=== PATIENT | male | born 1950 | race Caucasian/White ===

== ENCOUNTER 2018-11-19 18:24 | Inpatient (IN) | payer OTHER, MEDICARE ==
[~2018-11-19] VITALS: Ht 180.3 cm; Wt 121.0 kg
[2018-11-19 19:06] LABS: BASOPHILS ABSOLUTE AUTO 0.05 K/mm3 (0.00-0.23); BASOPHILS PERCENT AUTO 0 % (0-2); EOSINOPHILS PERCENT AUTO 0 % (0-6); Hematocrit 40.4 % (37.0-53.0); IMMATURE GRAN PERCENT AUTO 1 % (0-1); LYMPHOCYTES ABSOLUTE AUTO 0.59 K/mm3 (0.84-5.20); LYMPHOCYTES PERCENT AUTO 4 % (21-46); MONOCYTES ABSOLUTE AUTO 0.75 K/mm3 (0.16-1.47); MONOCYTES PERCENT AUTO 5 % (4-13); Mean Corpuscular HGB 26.5 pg (26.0-34.0); Mean Corpuscular HGB Conc 32.2 g/dL (31.5-36.5); Mean Corpuscular Volume 82 fL (80-100); Mean Platelet Volume 9.4 fL (9.1-12.4); NEUTROPHILS PERCENT AUTO 91 % (41-73); Platelet Count 255 K/mm3 (150-400); RDW Coefficient Variation 15.9 % (11.7-14.2); RDW Standard Deviation 47.7 fL (35.1-46.3); White Blood Cell Count 16.29 K/mm3 (4.00-11.30)
[2018-11-19 19:10] LABS: Source, Urine Catheter
[2018-11-19] MEDS ORDERED: TRAZ50 PO (19:12)
[2018-11-19] MEDS ORDERED: CLOP75 PO (19:12)
[2018-11-19] MEDS ORDERED: TAMS.4ER PO (19:14)
[2018-11-19] MEDS ORDERED: Crestor20 MG PO (19:14)
[2018-11-19] MEDS ORDERED: CARV3.125 PO (19:15)
[2018-11-19] MEDS ORDERED: METF500 PO (19:15)
[2018-11-19] MEDS ORDERED: OMEPRAZOLE20 MG PO (19:15)
[2018-11-19] MEDS ORDERED: FISH OIL 1,0001 EAC1 PO (19:15)
[2018-11-19 19:20] LABS: Bilirubin, Urine Neg (Neg); Blood, Urine 5+ (Neg); Glucose Qualitative, Urine Neg (Neg); Ketones, Urine 2+ (Neg); Leukocyte Esterase, Urine 3+ (Neg); Nitrite, Urine Pos (Neg); Protein, Urine 3+ (Neg); Specific Gravity, Urine 1.015 (1.003-1.022); Urobilinogen, Urine NORM (Normal)
[2018-11-19 19:22] LABS: Alanine Aminotransfer (ALT/SGP 40 U/L (12-78); Albumin, Blood 2.8 g/dL (3.4-5.0); Albumin/Globulin Ratio 0.6 (0.8-1.8); Alk Phos 71 U/L (50-136); Anion Gap 6 mmol/L (6-16); Aspartate Aminotrans (AST/SGOT 93 U/L (12-37); Bilirubin, Total 0.5 mg/dL (0.1-1.0); Blood Urea Nitrogen 24 mg/dL (8-24); Bun/Creatinine Ratio 19.8 (12.0-20.0); CO2, Blood 23 mmol/L (21-32); Calcium, Blood 8.7 mg/dL (8.5-10.1); Chloride, Blood 109 mmol/L (98-108); Creatinine, Blood 1.21 mg/dL (0.60-1.20); Globulin, Blood 4.5 g/dL (2.2-4.0); Glomerular Filtration Rate >60 (60-); Glucose, Blood 160 mg/dL (70-99); Potassium, Blood 4.5 mmol/L (3.5-5.5); Sodium, Blood 138 mmol/L (136-145); Total Protein, Blood 7.3 g/dL (6.4-8.2)
[2018-11-19 19:39] LABS: Appearance, Urine Hazy (Clear); Color, Urine Yellow (P-Yellow)
[2018-11-19 19:41] LABS: White Blood Cells, Urine 25-50 /hpf (0-5)
[2018-11-19 19:42] LABS: Bacteria Many /hpf; Squamous Epithelial Cells Few /hpf (Few)
[2018-11-19] MEDS ORDERED: ASCO500 PO (20:48)
[2018-11-19] MEDS ORDERED: Aspir 8181 MG PO (20:48)
[2018-11-19] MEDS ORDERED: OYSTER SHELL 21 EAC1 PO (20:49)
[2018-11-19] MEDS ORDERED: TRULICITY1.5 MG/0.5 PO (20:50)
[2018-11-19] MEDS ORDERED: Flonase 0.05% N16 GM (20:50)
[2018-11-19] MEDS ORDERED: Glucose4 GM PO (20:51)
[2018-11-19] MEDS ORDERED: GABA100 PO (20:51)
[2018-11-19] MEDS ORDERED: Isopto Tears15 ML BOTHEYES (20:52)
[2018-11-19] MEDS ORDERED: Alaway10 ML BOTHEYES (20:53)
[2018-11-19] MEDS ORDERED: BASAGLAR K100 UNIT/1 SC (20:53)
[2018-11-19] MEDS ORDERED: Vitamin D2000 UNIT PO (20:54)
[2018-11-19] MEDS ORDERED: Prinivil10 MG PO (20:54)
[2018-11-19] MEDS ORDERED: VENLAFAXINE HC150 MG PO (20:55)
[2018-11-19] MEDS ORDERED: Aqua Care237 ML TOP (20:56)
[2018-11-20 04:52] LABS: Mean Corpuscular HGB 26.4 pg (26.0-34.0); Mean Corpuscular HGB Conc 31.6 g/dL (31.5-36.5); Mean Corpuscular Volume 84 fL (80-100); Mean Platelet Volume 8.9 fL (9.1-12.4); Platelet Count 208 K/mm3 (150-400); RDW Standard Deviation 49.6 fL (35.1-46.3); Red Blood Cell Count 4.54 M/mm3 (4.30-5.90); White Blood Cell Count 10.32 K/mm3 (4.00-11.30)
[2018-11-20 05:10] LABS: Albumin, Blood 2.5 g/dL (3.4-5.0); Albumin/Globulin Ratio 0.6 (0.8-1.8); Bilirubin, Total 0.4 mg/dL (0.1-1.0); Creatinine, Blood 1.33 mg/dL (0.60-1.20); Globulin, Blood 4.1 g/dL (2.2-4.0); Potassium, Blood 3.5 mmol/L (3.5-5.5); Total Protein, Blood 6.6 g/dL (6.4-8.2)
--- NOTE | 2018-11-20 06:38 | NUR ---
NEW PT ADMITTED THIS SHIFT FOR SEPSIS POSSIBLE UTI POST PT SELF CATHING, HE VOICED HX OF DOING SO FOR 10 YEARS. REPORTED AMS POST PT HUNTING TRIP WHEN HE WAS DIFFICULT TO WAKE UP AFTER HE CAME HOME TO SLEEP. UA DONE - SEE RESULTS. ANTIBIOTICS ADMINISTERED IN THE ED, ELEVATED TEMP - TYLENOL ADMIN X 2, SEE MAR FOR DETAILS. TEMP NORMALIZED, MENTAL STATUS IMPROVED/ CURRENTLY TEMP 99.7 ORAL.
--- NOTE | 2018-11-20 10:01 | NUR ---
ATTEMPTING TO RECONCILE MEDS I HAVE CALLED OUR PHARMACY AND THEY HAVE KINDLY AGREED TO FAX [facility] FOR MED LIST. HOWEVER, [facility]IL THURSDAY. I HAVE SPOKEN WITH THE PT'S AND REQUESTED SHE BRING MEDICATIONS AND/OR ANY POSSIBLE MED LIST IN.
[2018-11-20] MEDS ORDERED: AMLO10 PO (16:00)
[2018-11-20] MEDS ORDERED: ZYRTEC10 M2 PO (16:01)
[2018-11-20] MEDS ORDERED: Fish Oil Conc1000 MG PO (16:02)
[2018-11-20] MEDS ORDERED: MECL12.5 PO (16:03)
--- NOTE | 2018-11-20 16:20 | NUR ---
SHIFT SUMMARY BLADDER SCANS ARE Q 6 HRS DUE TO RETENTION. PT STRAIGHT CATHS HIMSELF AT HOME. HE IS VERY SLOW TO RESPOND. I HAVE ASKED HIS IF THIS IS HIS BASELINE, SHE STATED HE HAS ALWAYS DONE THIS, BUT THIS IS THE WORST IT HAS EVER BEEN. HE DID NEED STRAIGHT CATH'D TODAY (BLADDER SCAN 575 CC'S), 500 CC'S REMOVED. HE DID WORK WITH PHYSICAL THERAPY AND HE DID WALK IN THE HALLWAY A SHORT DISTANCE WITH A FWW. HE SLEPT IN THE BED THE REST OF THE DAY AND REMAINED SLOW TO RESPOND. TODAY LAB REPORTED TO ME THAT HE HAD A POSITIVE BLOOD CULTURE FOR GRAM NEGATIVE BACTERIA, THIS WAS REPORTED TO THE HOSPITALIST AND MY CHARGE. HIS BROUGHT HIS MED LIST TO ME TODAY, AND I RECONCILED HIS HOME MEDICATIONS. THIS MORNING HE WAS UNABLE TO FOLLOW MY DIRECTIONS AND HE CHEWED HIS MEDICATIONS. I REPORTED THIS TO THE HOSPITALIST. HE HAS EXPERIENCED ONLY SLIGHTLY ELEVATED TEMPS THIS SHIFT.
--- NOTE | 2018-11-20 17:14 | NUR ---
PT STATUS PT STATES HE HAS BEEN EXPERIENCING SHARP PAINS ON THE RIGHT SIDE OF HIS HEAD, "FEELS LIKE IT'S BEHIND MY EYE".
--- NOTE | 2018-11-20 19:59 | NUR ---
BLADDER SCAN AT TIS TIME 38 CC. NO STRAIGHT CATH AT THIS TIME.
--- NOTE | 2018-11-21 02:04 | NUR ---
PT ATTEMPTED TO GET OUT OF BED TO 'GO TO THE BATHROOM', ASSISTED TO BEDSIDE COMMODE BUT PT DID NOT VOID. ASSISTED BACK TO BED, BLADDER SCAN 802, STRAIGHT CATHED - 700 CC. PT RESTING QUIETLY AT THIS TIME.
--- NOTE | 2018-11-21 04:11 | NUR ---
inTERMITTENT FEVERS WITH APPARENT DISORIENTATION NOTED. RECEIVED TYLENOL AND ICE BAGS TO BILAT AXILLA - A/O X 4 AFTERWARDS. BLADDER SCANS ABOUT EVERY 6 HRS, FIRST WAS 38 CC, NO CATH NEEDED, THE SECOND THIS SHIFT - 802 CC, STRAIGHT CATHED 700 CC OUT. cURRENTLY RESTING QUIETLY. WILL MONITOR.
[2018-11-21 05:08] LABS: BASOPHILS ABSOLUTE AUTO 0.02 K/mm3 (0.00-0.23); BASOPHILS PERCENT AUTO 0 % (0-2); EOSINOPHILS ABSOLUTE AUTO 0.03 K/mm3 (0.00-0.68); EOSINOPHILS PERCENT AUTO 0 % (0-6); Hemoglobin 13.2 g/dL (13.5-17.5); IMMATURE GRAN ABSOLUTE AUTO 0.05 K/mm3 (0.00-0.10); IMMATURE GRAN PERCENT AUTO 0 % (0-1); LYMPHOCYTES PERCENT AUTO 14 % (21-46); MONOCYTES ABSOLUTE AUTO 0.93 K/mm3 (0.16-1.47); MONOCYTES PERCENT AUTO 8 % (4-13); Mean Corpuscular HGB 26.5 pg (26.0-34.0); Mean Corpuscular HGB Conc 31.4 g/dL (31.5-36.5); Mean Corpuscular Volume 84 fL (80-100); Mean Platelet Volume 9.4 fL (9.1-12.4); NEUTROPHILS PERCENT AUTO 77 % (41-73); Platelet Count 214 K/mm3 (150-400); RDW Standard Deviation 49.2 fL (35.1-46.3); Red Blood Cell Count 4.99 M/mm3 (4.30-5.90); White Blood Cell Count 11.63 K/mm3 (4.00-11.30)
[2018-11-21 05:22] LABS: Anion Gap 6 mmol/L (6-16); Blood Urea Nitrogen 23 mg/dL (8-24); Bun/Creatinine Ratio 18.9 (12.0-20.0); CO2, Blood 24 mmol/L (21-32); Calcium, Blood 8.2 mg/dL (8.5-10.1); Chloride, Blood 105 mmol/L (98-108); Creatinine, Blood 1.22 mg/dL (0.60-1.20); Glomerular Filtration Rate >60 (60-); Glucose, Blood 130 mg/dL (70-99); Potassium, Blood 3.9 mmol/L (3.5-5.5); Sodium, Blood 135 mmol/L (136-145)
--- NOTE | 2018-11-21 16:06 | NUR ---
PT STATUS IT IS LIKELY THAT THE BLADDER SCAN PERFORMED @ 1337 HRS DENOTING 887 CC'S IN THE BLADDER WAS IN ERROR. I WITHDREW (STRAIGHT CATH) 500 ML AFTER THAT, DID ANOTHER BLADDER SCAN REVEALING ONLY 9 CC'S IN THE BLADDER LEFT - VERIFIED WITH NURSE ALYSON
--- NOTE | 2018-11-21 16:18 | NUR ---
SHIFT SUMMARY BLADDER SCANNED AT BEGINNING OF SHIFT AND AGAIN JUST BEFORE 2:30. REQUIRED STRAIGHT CATH FOLLOWING BOTH. GAVE TYLENOL FOR HEADACHE, BRINGING MODERATE RELIEF. PT SEEMS MORE ALERT TODAY IN MY OPINION. HE HAS NOT REQUIRED INSULIN COVERAGE THIS SHIFT. PHYSICAL THERAPY HAD HIM UP AND WALKING IN THE CRAWFORD. I PROVIDED THE PT WITH EDUCATION ON HOW TO SAFELY SELF CATH TO MINIMIZE INFECTION RISK IN THE FUTURE.
--- NOTE | 2018-11-21 22:19 | NUR ---
BLADDER SCAN 61 POST VOID RESIDUAL. NO CATH AT THIS TIME DUE TO LESS THAN 400 CC
--- NOTE | 2018-11-22 00:58 | NUR ---
MORE ATTENTIVE TO QUESTIONS POSED AND COHERENT ANSWERS. NOW MAKING ATTEMPTS TO GET OUT OF BED TO VOID, REDIRECTIONS AND BED ALARM IN USE TO PREVENT FALLS. VOIDING IN URINAL QS. BLADDER SCANS POST RESIDUAL 61 CC LAST SCAN, WILL RESCAN LATER IN THIS SHIFT FOR LAST BLADDER SCAN. SEE DOCUMENTAION FOR DETAILS. NOTE SOME SLIGHT EXP WHEEZES, VOICED MD WAS AWARE AND SAID THAT THE MD SAID THE ANTIBIOTICS HE WAS TAKING WHOULD HELP. O2 SATS LOW TO MID 90'S. CPAP AT NIGHT.
--- NOTE | 2018-11-22 16:13 | NUR ---
PT IS A/OX3, PLEASANT AND COOPERATIVE, THE PT IS UP WITH MINIMAL ASSIST TO THE BATHROOM, THE PT WAS UP FOR A SHOWER TODAY, THE PT AMBULATED IN THE CRAWFORD WITH THE PHYSICAL THERAPIST, THE PT ANSWERED QUESTIONS APPROPRIATLY, THE PT APPEARS TO BE BREATHING EASILY ON RA, THE PT WAS MEDICATED FOR NECK PAIN X1 TODAY, FAMILY AT THE BEDSIDE, CALL LIGHT IN REACH, WILL CONTINUE TO MONITOR AND ASSESS FOR CHANGES
--- NOTE | 2018-11-22 21:45 | NUR ---
11/22/18 2100 PT VOIDED 480 ML. BLADDER SCAN = 990 ML. RN WILL NOTIFY ON-CALL HOSPITALIST.
--- NOTE | 2018-11-22 23:55 | NUR ---
11/22/18 [address] 1780 ml of clear yellow urine. ABDOMEN SOFT. CPAP ON AND PT FELL BACK TO SLEEP.
--- NOTE | 2018-11-23 06:26 | NUR ---
11/23/18 0500 SPEECH LANG PATH ENCOURAGED PT TO VOID BUT STATES HE HAS NO URGE RIGHT NOW. BLADDER SCN = 755 ML RIGHT NOW. NO C/O DISCOMFORT. PT WANTING TO SLEEP. ALLOWED TO GO BACK TO SLEEP. VITALS STABLE.
[2018-11-23 07:38] LABS: Hematocrit 37.7 % (37.0-53.0); Hemoglobin 12.1 g/dL (13.5-17.5); Mean Corpuscular HGB 26.4 pg (26.0-34.0); Mean Corpuscular HGB Conc 32.1 g/dL (31.5-36.5); Mean Corpuscular Volume 82 fL (80-100); Mean Platelet Volume 9.2 fL (9.1-12.4); Platelet Count 234 K/mm3 (150-400); RDW Coefficient Variation 15.9 % (11.7-14.2); RDW Standard Deviation 47.6 fL (35.1-46.3); Red Blood Cell Count 4.59 M/mm3 (4.30-5.90); White Blood Cell Count 7.66 K/mm3 (4.00-11.30)
[2018-11-23 07:54] LABS: Anion Gap 5 mmol/L (6-16); Blood Urea Nitrogen 22 mg/dL (8-24); Bun/Creatinine Ratio 19.5 (12.0-20.0); CO2, Blood 28 mmol/L (21-32); Calcium, Blood 8.4 mg/dL (8.5-10.1); Chloride, Blood 107 mmol/L (98-108); Creatinine, Blood 1.13 mg/dL (0.60-1.20); Glomerular Filtration Rate >60 (60-); Glucose, Blood 82 mg/dL (70-99); Potassium, Blood 3.5 mmol/L (3.5-5.5); Sodium, Blood 140 mmol/L (136-145)
[2018-11-23 08:11] LABS: BAND PERCENT MAN 1 % (0-8); BASOPHILS ABSOLUTE MAN 0.07 K/mm3 (0.00-0.23); BASOPHILS PERCENT MAN 1 % (0-2); EOSINOPHILS PERCENT MAN 4 % (0-6); LYMPHOCYTES ABSOLUTE MAN 2.37 K/mm3 (0.84-5.20); LYMPHOCYTES PERCENT MAN 31 % (21-46); MONOCYTES ABSOLUTE MAN 1.14 K/mm3 (0.16-1.47); MONOCYTES PERCENT MAN 15 % (4-13); NEUTROPHILS ABSOLUTE MAN 3.75 K/mm3 (1.96-9.15); SEG NEUTROPHILS PERCENT MAN 48 % (41-73); TOTAL CELLS COUNTED 100
[2018-11-23] MEDS ORDERED: ACET325 PO (11:52)
[2018-11-23] MEDS ORDERED: Flonase 0.05% N16 GM (12:03)
[2018-11-23] MEDS ORDERED: [UNRECOGNIZED DRUG - CODE] TOP (12:09)
[2018-11-23] MEDS ORDERED: Florastor250 MG PO (12:10)
[2018-11-23] MEDS ORDERED: LEVO750 PO (12:11)
--- NOTE | 2018-11-23 12:48 | NUR ---
Patient is sitting on a chair and alert. 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 Patient admits to struggling with depression and PTSD. We discuss the thought pattern he goes through and what has helped him manage through the years. Patient discribes how he hits it with every weapon he has from therapy to prayer. Patient states that Luisa and his shauna remain strong. I provide empathic listening, pastoral halfway house counselor, companionship and prayer. Patient responds well and voices appreciation for the visit.
--- NOTE | 2018-11-23 14:53 | NUR ---
PT DISCHARGED THE PT VERBALIZED UNDERSTANDING OF THE DC INSTRUCTIONS, THE PTS PRES[facility], AN APPOINTMENT WAS MADE FOR FOLLOW UP, THE PT WAS TRANSFERD VIA WHEELCHAIR ACCOMPANIED BY PATIENT SERVICES TECHNICIAN AND FAMILY, THE PT APPEARED TO BE BREATHING EASILY ON RA, THE PT SELF CATHED BEFORE LEAVING THE HOSPITAL, THE PT WAS A/OX3, [facility] TO [facility]
== END 2018-11-23 12:43 | disposition home health service (06) | DRG 872 ==
LOC: ER 18:24 → MEDS 18:25 → ENPENDDIS 11-23 11:09 → MEDS 11-23 12:43
PROVIDERS: Emergency Medicine; Internal Medicine; ADMIT Internal Medicine
DX: A41.53 Sepsis due to Serratia (principal); N39.0 Urinary tract infection, site not specified; N17.9 Acute kidney failure, unspecified; G93.40 Encephalopathy, unspecified; E11.22 Type 2 diabetes mellitus with diabetic chronic kidney disease; I12.9 Hypertensive chronic kidney disease with stage 1 through stage 4 chronic kidney disease, or unspecified chronic kidney disease; N18.3 Chronic kidney disease, stage 3 (moderate); N40.1 Benign prostatic hyperplasia with lower urinary tract symptoms; R33.8 Other retention of urine; E78.5 Hyperlipidemia, unspecified; E66.9 Obesity, unspecified; Z68.37 Body mass index [BMI] 37.0-37.9, adult; E11.40 Type 2 diabetes mellitus with diabetic neuropathy, unspecified
CPT/HCPCS: 36415; 51701; 71046; 80048; 80053; 81001; 82947; 83605; 83735; 85025; 85027; 87040; 87077; 87086; 87186; 93005; 93010; 94660; 94762; 96361-59; 96365-59; 96372; 96375-59; 97110; 97112; 97116; 97162; 97166; 97530; 97535; 99285-25; A9270; G0378; J0696; J1650; J1956; J2543; J7030

== ENCOUNTER 2020-03-12 23:25 | Inpatient (IN) | payer OTHER, MEDICARE ==
[~2020-03-12] VITALS: Ht 175.3 cm; Wt 110.6 kg
[~2020-03-12 23:25] MED LIST: ACET325 PO; AMLO10 PO; ASCO500 PO; Alaway10 ML BOTHEYES; Aqua Care237 ML TOP; Aspir 8181 MG PO; BASAGLAR K100 UNIT/1 SC; CARV3.125 PO; CLOP75 PO; Crestor20 MG PO; FISH OIL 1,0001 EAC1 PO; Fish Oil Conc1000 MG PO; Flonase 0.05% N16 GM; Florastor250 MG PO; GABA100 PO; Glucose4 GM PO; Isopto Tears15 ML BOTHEYES; LEVO750 PO; MECL12.5 PO; METF500 PO; OMEPRAZOLE20 MG PO; OYSTER SHELL 21 EAC1 PO; Prinivil10 MG PO; TAMS.4ER PO; TRAZ50 PO; TRULICITY1.5 MG/0.5 PO; VENL75ER PO; Vitamin D2000 UNIT PO; ZYRTEC10 M2 PO; [UNRECOGNIZED DRUG - CODE] TOP
[2020-03-13 00:12] LABS: BASOPHILS ABSOLUTE AUTO 0.02 K/mm3 (0.00-0.23); BASOPHILS PERCENT AUTO 0 % (0-2); EOSINOPHILS ABSOLUTE AUTO 0.01 K/mm3 (0.00-0.68); EOSINOPHILS PERCENT AUTO 0 % (0-6); Hematocrit 47.3 % (37.0-53.0); Hemoglobin 15.1 g/dL (13.5-17.5); IMMATURE GRAN ABSOLUTE AUTO 0.02 K/mm3 (0.00-0.10); IMMATURE GRAN PERCENT AUTO 0 % (0-1); LYMPHOCYTES ABSOLUTE AUTO 1.45 K/mm3 (0.84-5.20); LYMPHOCYTES PERCENT AUTO 20 % (21-46); MONOCYTES ABSOLUTE AUTO 0.75 K/mm3 (0.16-1.47); MONOCYTES PERCENT AUTO 10 % (4-13); Mean Corpuscular HGB 27.1 pg (26.0-34.0); Mean Corpuscular HGB Conc 31.9 g/dL (31.5-36.5); Mean Corpuscular Volume 85 fL (80-100); Mean Platelet Volume 9.3 fL (9.1-12.4); NEUTROPHILS ABSOLUTE AUTO 5.12 K/mm3 (1.96-9.15); NEUTROPHILS PERCENT AUTO 69 % (41-73); Platelet Count 245 K/mm3 (150-400); RDW Coefficient Variation 14.7 % (11.7-14.2); RDW Standard Deviation 46.1 fL (35.1-46.3); Red Blood Cell Count 5.57 M/mm3 (4.30-5.90); White Blood Cell Count 7.37 K/mm3 (4.00-11.30)
[2020-03-13 00:30] LABS: Alanine Aminotransfer (ALT/SGP 58 U/L (12-78); Albumin/Globulin Ratio 0.6 (0.8-1.8); Alk Phos 93 U/L (50-136); Anion Gap 10 mmol/L (6-16); Aspartate Aminotrans (AST/SGOT 47 U/L (12-37); Bilirubin, Total 0.5 mg/dL (0.1-1.0); Blood Urea Nitrogen 24 mg/dL (8-24); Bun/Creatinine Ratio 20.5 (12.0-20.0); CO2, Blood 22 mmol/L (21-32); Calcium, Blood 8.6 mg/dL (8.5-10.1); Chloride, Blood 102 mmol/L (98-108); Creatinine, Blood 1.17 mg/dL (0.60-1.20); Ethanol (Alcohol), Blood, Med <3 mg/dL; Glomerular Filtration Rate >60 (60-); Glucose, Blood 186 mg/dL (70-99); Potassium, Blood 4.3 mmol/L (3.5-5.5); Sodium, Blood 134 mmol/L (136-145)
[2020-03-13 00:54] LABS: Influenza A, PCR Negative (NEGATIVE); Influenza B, PCR Negative (NEGATIVE); Resp Syncytial Virus, PCR Negative (NEGATIVE); SARS-Cov-2 (COVID-19) PCR, MMC Positive (NEGATIVE)
[2020-03-13 02:15] LABS: Source, Urine Clean Catch
[2020-03-13 02:19] LABS: Appearance, Urine Clear (Clear); Bilirubin, Urine Neg (Neg); Blood, Urine 3+ (Neg); Color, Urine Amber (P-Yellow); Glucose Qualitative, Urine Neg (Neg); Ketones, Urine 1+ (Neg); Leukocyte Esterase, Urine 1+ (Neg); Nitrite, Urine Neg (Neg); Protein, Urine 4+ (Neg); Urobilinogen, Urine NORM (Normal)
[2020-03-13 02:24] LABS: Amorphous Light (0-Heavy); Bacteria Few /hpf; Hyaline Casts 0-2 /lpf (0-2); Red Blood Cells, Urine 0-2 /hpf (0-2); Squamous Epithelial Cells Not Seen /hpf (Few)
[2020-03-13 02:30] LABS: U Amphetamine Screen Not Detected; U Barbituate Screen Not Detected; U Benzodiazapine Screen Not Detected; U Buprenorphine Screen Not Detected; U Cannabinoids Screen Not Detected; U Cocaine Screen Not Detected; U Methadone Screen Not Detected; U Methamphetamine Screen Not Detected; U Opiates Screen Not Detected; U Oxycodone Screen Not Detected; U Phencyclidine Screen Not Detected; U Propoxyphene Screen Not Detected
[2020-03-13 05:52] LABS: Anion Gap 10 mmol/L (6-16); Blood Urea Nitrogen 24 mg/dL (8-24); Bun/Creatinine Ratio 21.1 (12.0-20.0); CO2, Blood 23 mmol/L (21-32); Calcium, Blood 8.4 mg/dL (8.5-10.1); Chloride, Blood 103 mmol/L (98-108); Creatinine, Blood 1.14 mg/dL (0.60-1.20); Glomerular Filtration Rate >60 (60-); Glucose, Blood 222 mg/dL (70-99); Potassium, Blood 4.3 mmol/L (3.5-5.5); Sodium, Blood 136 mmol/L (136-145)
--- NOTE | 2020-03-13 06:09 | NUR ---
OPERATING SYSTEMS SPECIALIST SUMMARY NEW ADMIT FROM THE ED TONIGHT. PT ADMITTED FOR INCREASED SOB AND WEAKNESS. PT DIAGNOSED W/ COVID 19 ON 03/01. PT ARRIVES TO FLOOR ON 2L O2 VIA NC BUT SATTING AT 98% SO TITRATED DOWN TO 1L. LUNG SOUNDS COARSE IN BASES, PT HAS DRY COUGH. PT AAOX4 AND PLEASANT, SOME INTERMITTENT FORGETFULNESS. PT TO START ON REMDESIVIR THIS AM. PT REPORTS LIVING AT HOME WITH WHO HAS HAD TROUBLE TAKING CARE OF HIM SINCE HE WAS DIAGNOSED WITH COVID. PT STATES HE HAS BEEN VERY WEAK AND HAS HAD SEVERAL FALLS IN THE LAST MONTH. PT EDUCATED ON CALLING FOR ASSISTANCE BEFORE GETTING UP ALONE BUT BED ALARM IS ON FOR SAFETY. VSS, WILL CONTINUE TO MONITOR.
--- NOTE | 2020-03-13 17:25 | NUR ---
SHIFT SUMMARY PT AxOx4. PLEASANT AND COOPERATIVE WITH CARE. PT DAUGHTER AND UPDATED TODAY. PT DC'D HIS OWN O2 THIS AM BECAUSE IT WAS BOTHERING HIS NOSE. HAS BEEN BREATHING ON RA WITHOUT DIFFICULTY T/O THE DAY. PT REPORTS FEELING MUCH BETTER TODAY COMPARED TO YESTERDAY. REPORTS INCREASED APPETITE AND STRENGTH. PT AND OT ORDERED TODAY. PT IS 1 PERSON ASSIST WITH FWW AND GB. FIRST DOSE OF REMDESIVIR STARTED TODAY. PER PT, HE SELF STRAIGHT CATHS TID x30 YEARS FOR RETENTION. PER DR WESTFALL, ORDERS FOR STRAIGHT CATH TID OR PRN OKAY. PT SELF STRAIGHT CATH'D x2 TODAY. PT REQUESTED COUGH MEDS THIS AM, BUT DID NOT END UP WANTING ANY TODAY. VITALS REVIEWED. CURRENTLY RESTING IN BED WITH CALL LIGHT IN REACH.
--- NOTE | 2020-03-14 06:03 | NUR ---
SHIFT SUMMARY AOX3-FORGETFUL @TIMES, STATES THAT IS NORMAL FOR HIM. FOLLOWS DIRECTIONS & ANSWERS QUESTIONS APPROPRIATE. VSS. SPO2 >90% ON RA. E/U RESPIRATIONS. DENIES DYSPNEA @REST, STATES HE FEELS SOB OCCASIONALLY c ACTIVITY OR TALKING. LUNGS SOUND DIM T/O. HAS OCCASIONAL NON PRODUCTIVE PAINFUL COUGH, ASKED FOR COUGH MEDICATION THIS AM. DENIES N/V. PT STRAIGHT CATH'D HIMSELF c MIN ASSISTANCE & HAD 500ML URINE OUTPUT. CBG @HS WAS 307, PROVIDED INSULIN COVERAGE. CALL LIGHT IN REACH & PT ABLE TO MAKE NEEDS KNOWN, WILL MONITOR UNTIL DAY SHIFT NURSE ASSUMES CARE.
[2020-03-14] MEDS ORDERED: CALCIUM 250-D1 EACH PO (15:12)
[2020-03-14] MEDS ORDERED: TRULICITY1.5 MG/0.1 SC (15:15)
[2020-03-14] MEDS ORDERED: OMEGA-3 FISH O1 EAC6 PO (15:18)
[2020-03-14] MEDS ORDERED: BENZ100A PO (15:23)
[2020-03-14] MEDS ORDERED: Q-Tussin100 MG/5 M PO (15:24)
--- NOTE | 2020-03-14 19:35 | NUR ---
DISCHARGE SUMMARY: LATE ENTRY FOR 16:15 PATIENT REPORTED FEELING BETTHER THROUGHOUT THE DAY. PATIENT DENIED SOB OR RESPIRATORY DISTRESS AT REST OR WITH AMBULATION. PATIENT UP IN ROOM WITH PT/OT AND RN. PATIENT ABLE TO SHOWER WITH SET-UP ASSISTANCE ONLY. PATIENT STEADY ON FEET AND UTILIZES WALKER APPROPRIATELY. PATIENT SPO2>90% ON RA. [facility]. PATIENT DISCHARGE INSTRUCTIONS AND EDUCATION PROVIDED TO PATIENT AND SPOUSE. PATIENT DISCHARGED IN WHEELCHAIR WITH RN. PATIENT STABLE AT TIME OF DISCHARGE.
== END 2020-03-14 16:10 | disposition home health service (06) | DRG 177 ==
LOC: ER 23:25 → MEDS 03-13 04:52
PROVIDERS: Emergency Medicine; ADMIT Internal Medicine
PROC: XW033E5 Introduction of Remdesivir Anti-infective into Peripheral Vein, Percutaneous Approach, New Technology Group 5 (ICD-10-PCS; principal; 2020-03-13)
PROC: 3E0333Z Introduction of Anti-inflammatory into Peripheral Vein, Percutaneous Approach (ICD-10-PCS; 2020-03-13)
DX: U07.1 COVID-19 (principal); J96.01 Acute respiratory failure with hypoxia; G92 Toxic encephalopathy; J98.11 Atelectasis; Z79.4 Long term (current) use of insulin; I12.9 Hypertensive chronic kidney disease with stage 1 through stage 4 chronic kidney disease, or unspecified chronic kidney disease; E11.22 Type 2 diabetes mellitus with diabetic chronic kidney disease; N18.30 Chronic kidney disease, stage 3 unspecified; K21.9 Gastro-esophageal reflux disease without esophagitis; E66.01 Morbid (severe) obesity due to excess calories; Z68.36 Body mass index [BMI] 36.0-36.9, adult; N40.0 Benign prostatic hyperplasia without lower urinary tract symptoms; E78.5 Hyperlipidemia, unspecified; E11.40 Type 2 diabetes mellitus with diabetic neuropathy, unspecified
CPT/HCPCS: 0241U; 36415; 51701; 70450; 71045; 80048; 80053; 81001; 82947; 85025; 85379; 87086; 93005; 93010; 94761; 97116; 97162; 97166; 97535; 99285-25; A9270; G0480; J1100; J1650

== ENCOUNTER 2020-05-24 23:30 | Observation (INO) | payer OTHER, MEDICARE ==
[~2020-05-24] VITALS: Ht 188 cm; Wt 115.4 kg
[~2020-05-24 23:30] MED LIST changes: +BENZ100A PO; +CALCIUM 250-D1 EACH PO; +OMEGA-3 FISH O1 EAC6 PO; +Q-Tussin100 MG/5 M PO; +TRULICITY1.5 MG/0.1 SC
[2020-05-24 23:54] LABS: BASOPHILS ABSOLUTE AUTO 0.03 K/mm3 (0.00-0.23); BASOPHILS PERCENT AUTO 0 % (0-2); EOSINOPHILS ABSOLUTE AUTO 0.25 K/mm3 (0.00-0.68); EOSINOPHILS PERCENT AUTO 2 % (0-6); Hematocrit 42.5 % (37.0-53.0); Hemoglobin 14.1 g/dL (13.5-17.5); IMMATURE GRAN ABSOLUTE AUTO 0.07 K/mm3 (0.00-0.10); IMMATURE GRAN PERCENT AUTO 1 % (0-1); LYMPHOCYTES ABSOLUTE AUTO 2.17 K/mm3 (0.84-5.20); LYMPHOCYTES PERCENT AUTO 15 % (21-46); MONOCYTES ABSOLUTE AUTO 1.24 K/mm3 (0.16-1.47); MONOCYTES PERCENT AUTO 9 % (4-13); Mean Corpuscular HGB 28.1 pg (26.0-34.0); Mean Corpuscular HGB Conc 33.2 g/dL (31.5-36.5); Mean Corpuscular Volume 85 fL (80-100); Mean Platelet Volume 8.7 fL (9.1-12.4); NEUTROPHILS ABSOLUTE AUTO 10.68 K/mm3 (1.96-9.15); NEUTROPHILS PERCENT AUTO 74 % (41-73); Platelet Count 258 K/mm3 (150-400); RDW Coefficient Variation 15.5 % (11.7-14.2); RDW Standard Deviation 47.6 fL (35.1-46.3); Red Blood Cell Count 5.01 M/mm3 (4.30-5.90); White Blood Cell Count 14.44 K/mm3 (4.00-11.30)
[2020-05-25 00:21] LABS: Alanine Aminotransfer (ALT/SGP 39 U/L (12-78); Albumin, Blood 3.1 g/dL (3.4-5.0); Albumin/Globulin Ratio 0.7 (0.8-1.8); Alk Phos 85 U/L (50-136); Anion Gap 9 mmol/L (6-16); Aspartate Aminotrans (AST/SGOT 21 U/L (12-37); Bilirubin, Total 0.3 mg/dL (0.1-1.0); Blood Urea Nitrogen 27 mg/dL (8-24); Bun/Creatinine Ratio 18.9 (12.0-20.0); CO2, Blood 21 mmol/L (21-32); Calcium, Blood 9.3 mg/dL (8.5-10.1); Chloride, Blood 106 mmol/L (98-108); Creatinine, Blood 1.43 mg/dL (0.60-1.20); Globulin, Blood 4.7 g/dL (2.2-4.0); Glomerular Filtration Rate 52 (60-); Glucose, Blood 296 mg/dL (70-99); Magnesium, Blood 1.7 mg/dL (1.6-2.4); Potassium, Blood 4.3 mmol/L (3.5-5.5); Sodium, Blood 136 mmol/L (136-145); Total Protein, Blood 7.8 g/dL (6.4-8.2); Troponin I <0.015 ng/mL (0.000-0.040)
[2020-05-25 00:29] LABS: Source, Urine Voided
[2020-05-25 00:31] LABS: Bilirubin, Urine Neg (Neg); Blood, Urine Neg (Neg); Glucose Qualitative, Urine 1+ (Neg); Ketones, Urine Neg (Neg); Leukocyte Esterase, Urine 1+ (Neg); Nitrite, Urine Neg (Neg); Protein, Urine 2+ (Neg); Urobilinogen, Urine NORM (Normal)
[2020-05-25 00:34] LABS: Appearance, Urine Clear (Clear); Color, Urine Yellow (P-Yellow)
[2020-05-25 00:39] LABS: Amorphous Mod (0-Heavy); Bacteria Few /hpf; Red Blood Cells, Urine Not Seen /hpf (0-2); Squamous Epithelial Cells Not Seen /hpf (Few)
[2020-05-25 00:41] LABS: Influenza A, PCR NEGATIVE (NEGATIVE); Influenza B, PCR NEGATIVE (NEGATIVE); Resp Syncytial Virus, PCR NEGATIVE (NEGATIVE)
[2020-05-25 00:42] LABS: SARS-Cov-2 (COVID-19) PCR, MMC POSITIVE (NEGATIVE)
[2020-05-25] MEDS ORDERED: BUDE.25 INH (00:42)
[2020-05-25] MEDS ORDERED: CARB10OTL BOTHEARS (00:46)
[2020-05-25] MEDS ORDERED: HYDRA50 PO (00:54)
[2020-05-25] MEDS ORDERED: Isopto Tears15 ML BOTHEYES (00:56)
[2020-05-25] MEDS ORDERED: ZADITOR5 M1 BOTHEYES (00:58)
[2020-05-25] MEDS ORDERED: LISI20 PO (00:59)
[2020-05-25] MEDS ORDERED: MONT10T PO (01:00)
[2020-05-25] MEDS ORDERED: ANTIFUNGAL30 GM TOP (01:02)
--- NOTE | 2020-05-25 04:34 | NUR ---
PATIENT IS A NEW ADMIT FROM THE ED. THREE PERSON TRANSFER FROM [facility] TO BED. PATIENT TRIED TO STAND AND PIVOT BUT IS TOO WEAK AND ATTEMPT WAS STOPPED IN BED. AXOX 2-3 AND VERY SLOW TO RESPOND. FORGETFUL WITH HX DEMENTIA. PATIENT REPORTS SELF CATHERIZATION AT HOME. TEMP 98.6 DOWN FROM 100.3 IN ED. VSS/AFEBRILE. DROPLET PRECAUTIONS COVID 19+. ROOM AIR. REPORTS LIVES WITH SPOUSE IN [place]. PATIENT ORIENTED TO ROOM AND CALL LIGHT SYSTEM. BED IN LOWEST POSITION AND ALARM ACTIVATED FOR BEING FORGETFUL. WILL CONTINUE TO MONITOR UNTIL DAY SHIFT NURSE ASSUMES CARE.
[2020-05-25 08:46] LABS: BASOPHILS ABSOLUTE AUTO 0.03 K/mm3 (0.00-0.23); BASOPHILS PERCENT AUTO 0 % (0-2); EOSINOPHILS ABSOLUTE AUTO 0.18 K/mm3 (0.00-0.68); EOSINOPHILS PERCENT AUTO 1 % (0-6); Hematocrit 41.1 % (37.0-53.0); Hemoglobin 13.6 g/dL (13.5-17.5); IMMATURE GRAN ABSOLUTE AUTO 0.05 K/mm3 (0.00-0.10); IMMATURE GRAN PERCENT AUTO 0 % (0-1); LYMPHOCYTES ABSOLUTE AUTO 2.88 K/mm3 (0.84-5.20); LYMPHOCYTES PERCENT AUTO 19 % (21-46); MONOCYTES ABSOLUTE AUTO 1.39 K/mm3 (0.16-1.47); MONOCYTES PERCENT AUTO 9 % (4-13); Mean Corpuscular HGB 28.3 pg (26.0-34.0); Mean Corpuscular HGB Conc 33.1 g/dL (31.5-36.5); Mean Corpuscular Volume 85 fL (80-100); Mean Platelet Volume 9.2 fL (9.1-12.4); NEUTROPHILS ABSOLUTE AUTO 10.36 K/mm3 (1.96-9.15); NEUTROPHILS PERCENT AUTO 70 % (41-73); Platelet Count 238 K/mm3 (150-400); RDW Coefficient Variation 15.6 % (11.7-14.2); Red Blood Cell Count 4.81 M/mm3 (4.30-5.90); White Blood Cell Count 14.89 K/mm3 (4.00-11.30)
[2020-05-25 09:02] LABS: Bun/Creatinine Ratio 16.1 (12.0-20.0); Creatinine, Blood 1.55 mg/dL (0.60-1.20); Potassium, Blood 3.9 mmol/L (3.5-5.5)
--- NOTE | 2020-05-25 17:33 | NUR ---
PER INFECTIOUS DISEASE RN, HEALTH DEPT STATES COVID POSITIVE RESULT IS FROM ILLNESS IN MARCH, AND PT DOES NOT NEED ENHANCED DROPLET PRECAUTIONS, IF MD IS IN AGREEMENT. MD NOTIFIED. NO NEW ORDERS. PREFERS THAT PATIENT DISCHARGE TO [facility] FOR SNF. 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
--- NOTE | 2020-05-26 04:34 | NUR ---
SHIFT SUMMARY- PT. A&OX3 FORGETFUL AT TIMES. HAD NO COMPLAINTS DURING THE NIGHT, APPEARED TO HAVE RESTED COMFORTABLY T/O THE NIGHT. NO APPARENT DISTRESS NOTED. PT. ON RA, NO C/O SOB, VSS. PT. REPORTS SELF CATHETERIZATION @ HOME. SELF CATHS DONE BY PT. AT THE BEDSIDE PRN. NO ACUTE CHANGES TO CONDITION. CALL LIGHT WITHIN REACH AND SIDE RAILS UPX2. WILL CONT TO MONITOR.
[2020-05-26 04:43] LABS: BASOPHILS ABSOLUTE AUTO 0.03 K/mm3 (0.00-0.23); BASOPHILS PERCENT AUTO 0 % (0-2); EOSINOPHILS ABSOLUTE AUTO 0.01 K/mm3 (0.00-0.68); EOSINOPHILS PERCENT AUTO 0 % (0-6); Hematocrit 38.7 % (37.0-53.0); Hemoglobin 12.9 g/dL (13.5-17.5); IMMATURE GRAN PERCENT AUTO 1 % (0-1); LYMPHOCYTES ABSOLUTE AUTO 2.18 K/mm3 (0.84-5.20); LYMPHOCYTES PERCENT AUTO 14 % (21-46); MONOCYTES ABSOLUTE AUTO 1.12 K/mm3 (0.16-1.47); MONOCYTES PERCENT AUTO 7 % (4-13); Mean Corpuscular HGB 28.2 pg (26.0-34.0); Mean Corpuscular HGB Conc 33.3 g/dL (31.5-36.5); Mean Corpuscular Volume 85 fL (80-100); Mean Platelet Volume 9.1 fL (9.1-12.4); NEUTROPHILS ABSOLUTE AUTO 12.73 K/mm3 (1.96-9.15); NEUTROPHILS PERCENT AUTO 79 % (41-73); Platelet Count 239 K/mm3 (150-400); RDW Coefficient Variation 15.1 % (11.7-14.2); RDW Standard Deviation 46.5 fL (35.1-46.3); Red Blood Cell Count 4.58 M/mm3 (4.30-5.90); White Blood Cell Count 16.17 K/mm3 (4.00-11.30)
[2020-05-26 05:35] LABS: Albumin, Blood 2.7 g/dL (3.4-5.0); Albumin/Globulin Ratio 0.6 (0.8-1.8); Bilirubin, Total 0.3 mg/dL (0.1-1.0); Bun/Creatinine Ratio 21.2 (12.0-20.0); Calcium, Blood 8.9 mg/dL (8.5-10.1); Creatinine, Blood 1.98 mg/dL (0.60-1.20); Globulin, Blood 4.6 g/dL (2.2-4.0); Potassium, Blood 4.6 mmol/L (3.5-5.5); Thyroid Stimulating Hormone 0.478 uIU/mL (0.360-4.800); Total Protein, Blood 7.3 g/dL (6.4-8.2)
--- NOTE | 2020-05-26 17:12 | NUR ---
SHIFT SUMMARY- PT IS A/O, PLESANT AND COOPERATIVE. HE IS EATING AND DRINKING WELL. PT IS STRAIGHT CATHING HIMSELF. HE WAS UP TO THE CHAIR FOR A BIT THIS AFTERNOON. HE IS RECIEVING IV FLUIDS. HE ACCIDENTLY PULLED HIS IV AND ANOTHER ONE WAS PLACED. HE IS CURRENTLY IN BED WITH THE CALL LIGHT WITHIN REACH AND THE BED IN THE LOW POSITION.
--- NOTE | 2020-05-27 04:56 | NUR ---
SHIFT SUMMARY- PT. A&OX3, FORGETFUL AT TIMES. PULLED OUT IV FOR A SECOND TIME LAST NIGHT. RESTARTED NEW IV, FLUIDS INFUSING. HAD NO COMPLAINTS T/O THE NIGHT. PT. CONTS TO SELF CATH AT BEDSIDE W/O DIFFICULTY. VSS. CALL LIGHT WITHIN REACH AND SIDE RAILS UPX2. WILL CONT TO MONITOR.
[2020-05-27 05:05] LABS: BASOPHILS ABSOLUTE AUTO 0.02 K/mm3 (0.00-0.23); BASOPHILS PERCENT AUTO 0 % (0-2); EOSINOPHILS ABSOLUTE AUTO 0.34 K/mm3 (0.00-0.68); EOSINOPHILS PERCENT AUTO 3 % (0-6); Hematocrit 38.5 % (37.0-53.0); Hemoglobin 12.6 g/dL (13.5-17.5); IMMATURE GRAN ABSOLUTE AUTO 0.05 K/mm3 (0.00-0.10); IMMATURE GRAN PERCENT AUTO 0 % (0-1); LYMPHOCYTES ABSOLUTE AUTO 3.61 K/mm3 (0.84-5.20); LYMPHOCYTES PERCENT AUTO 30 % (21-46); MONOCYTES ABSOLUTE AUTO 0.97 K/mm3 (0.16-1.47); MONOCYTES PERCENT AUTO 8 % (4-13); Mean Corpuscular HGB Conc 32.7 g/dL (31.5-36.5); Mean Corpuscular Volume 86 fL (80-100); Mean Platelet Volume 9.3 fL (9.1-12.4); NEUTROPHILS ABSOLUTE AUTO 7.26 K/mm3 (1.96-9.15); NEUTROPHILS PERCENT AUTO 59 % (41-73); Platelet Count 263 K/mm3 (150-400); RDW Coefficient Variation 15.5 % (11.7-14.2); RDW Standard Deviation 48.5 fL (35.1-46.3); White Blood Cell Count 12.25 K/mm3 (4.00-11.30)
[2020-05-27 05:29] LABS: Bun/Creatinine Ratio 24.7 (12.0-20.0); Calcium, Blood 8.8 mg/dL (8.5-10.1); Creatinine, Blood 1.86 mg/dL (0.60-1.20)
[2020-05-28 04:51] LABS: Hemoglobin 13.2 g/dL (13.5-17.5); Mean Corpuscular HGB 28.6 pg (26.0-34.0); Mean Corpuscular Volume 87 fL (80-100); Mean Platelet Volume 9.2 fL (9.1-12.4); Platelet Count 278 K/mm3 (150-400); RDW Coefficient Variation 15.9 % (11.7-14.2); Red Blood Cell Count 4.61 M/mm3 (4.30-5.90); White Blood Cell Count 8.63 K/mm3 (4.00-11.30)
--- NOTE | 2020-05-28 05:06 | NUR ---
SHIFT SUMMARY- PT. HAD NO ACUTE CHANGES TO CONDITION, ISOLATION DC'D. PT. CONTS TO SELF CATH PRN. NO COMPLAINTS DURING THE NIGHT, HAD BEDTIME SNACK. ASLEEP MOST OF THE NIGHT, NO APPARENT DISTRESS NOTED. VSS. CALL LIGHT WITHIN REACH AND SIDE RAILS UPX2. WILL CONT TO MONITOR.
[2020-05-28 05:10] LABS: Calcium, Blood 8.3 mg/dL (8.5-10.1); Creatinine, Blood 1.54 mg/dL (0.60-1.20); Potassium, Blood 4.4 mmol/L (3.5-5.5)
[2020-05-28] MEDS ORDERED: AMLO5 PO (13:34)
[2020-05-28] MEDS ORDERED: GUAI600T33 PO (13:35)
--- NOTE | 2020-05-28 15:16 | NUR ---
1500 PT DISCHARGED HOME VIA PERSONAL VEHICLE ACCOMPANIED AND DRIVEN BY . PT ESCORTED TO ENTRANCE VIA W/C BY THIS RN. D/C INSTRUCTIONS REVIEWED WITH PT AND AND COPY PROVIDED. IV REMOVED. PHYSICAL THERAPY WORKED WITH PT JUST PRIOR TO D/C, PT WAS ABLE TO COMPLETE 8 STAIRS, ON 2 STAIRS AT ENTRANCE TO HOME. NO NEW CHANGES OR CONCERNS.
== END 2020-05-28 15:02 | disposition home health service (06) ==
LOC: ER 23:30 → MEDS 23:31 → ENPENDDIS 05-28 09:42 → MEDS 05-28 15:02
PROVIDERS: Emergency Medicine; Internal Medicine; ADMIT Internal Medicine
DX: U07.1 COVID-19 (principal); J96.01 Acute respiratory failure with hypoxia; N17.9 Acute kidney failure, unspecified; I12.9 Hypertensive chronic kidney disease with stage 1 through stage 4 chronic kidney disease, or unspecified chronic kidney disease; N18.30 Chronic kidney disease, stage 3 unspecified; E11.22 Type 2 diabetes mellitus with diabetic chronic kidney disease; K59.00 Constipation, unspecified; G92 Toxic encephalopathy; E78.5 Hyperlipidemia, unspecified; K21.9 Gastro-esophageal reflux disease without esophagitis; N40.1 Benign prostatic hyperplasia with lower urinary tract symptoms; R33.8 Other retention of urine; E11.42 Type 2 diabetes mellitus with diabetic polyneuropathy; Z79.84 Long term (current) use of oral hypoglycemic drugs; Z79.899 Other long term (current) drug therapy
CPT/HCPCS: 0241U; 36415; 51701; 71045; 74177; 80048; 80053; 81001; 82140; 82607; 82746; 82947; 83605; 83735; 84443; 84484; 85025; 85027; 85651; 86592; 87040; 93005; 93010; 94640; 94760; 96365; 96372; 97110; 97116; 97162; 97166; 97530; 99285-25; A9270; G0378; J0696; J1644; J1650; J1815; J7030; Q9967

== ENCOUNTER 2020-08-20 18:16 | Emergency (ER) | payer OTHER, MEDICARE ==
[~2020-08-20] VITALS: Ht 180.3 cm; Wt 118.4 kg
[~2020-08-20 18:16] MED LIST changes: +AMLO5 PO; +ANTIFUNGAL30 GM TOP; +BUDE.25 INH; +CARB10OTL BOTHEARS; +GUAI600T33 PO; +HYDRA50 PO; +LISI20 PO; +MONT10T PO; +ZADITOR5 M1 BOTHEYES
[2020-08-20 19:14] LABS: BASOPHILS ABSOLUTE AUTO 0.05 K/mm3 (0.00-0.23); BASOPHILS PERCENT AUTO 1 % (0-2); EOSINOPHILS ABSOLUTE AUTO 0.47 K/mm3 (0.00-0.68); EOSINOPHILS PERCENT AUTO 6 % (0-6); Hematocrit 37.3 % (37.0-53.0); Hemoglobin 12.3 g/dL (13.5-17.5); IMMATURE GRAN ABSOLUTE AUTO 0.04 K/mm3 (0.00-0.10); IMMATURE GRAN PERCENT AUTO 1 % (0-1); LYMPHOCYTES ABSOLUTE AUTO 2.37 K/mm3 (0.84-5.20); LYMPHOCYTES PERCENT AUTO 28 % (21-46); MONOCYTES PERCENT AUTO 11 % (4-13); Mean Corpuscular HGB 28.6 pg (26.0-34.0); Mean Corpuscular Volume 87 fL (80-100); NEUTROPHILS ABSOLUTE AUTO 4.56 K/mm3 (1.96-9.15); NEUTROPHILS PERCENT AUTO 54 % (41-73); Platelet Count 266 K/mm3 (150-400); RDW Coefficient Variation 13.3 % (11.7-14.2); RDW Standard Deviation 41.3 fL (35.1-46.3); White Blood Cell Count 8.39 K/mm3 (4.00-11.30)
[2020-08-20 19:30] LABS: Alanine Aminotransfer (ALT/SGP 36 U/L (12-78); Albumin, Blood 3.1 g/dL (3.4-5.0); Albumin/Globulin Ratio 0.7 (0.8-1.8); Alk Phos 87 U/L (50-136); Anion Gap 8 mmol/L (6-16); Aspartate Aminotrans (AST/SGOT 21 U/L (12-37); Bilirubin, Total 0.3 mg/dL (0.1-1.0); Blood Urea Nitrogen 27 mg/dL (8-24); Bun/Creatinine Ratio 17.1 (12.0-20.0); CO2, Blood 23 mmol/L (21-32); Calcium, Blood 8.8 mg/dL (8.5-10.1); Chloride, Blood 107 mmol/L (98-108); Creatinine, Blood 1.58 mg/dL (0.60-1.20); Ethanol (Alcohol), Blood, Med <3 mg/dL; Globulin, Blood 4.4 g/dL (2.2-4.0); Glomerular Filtration Rate 46 (60-); Glucose, Blood 121 mg/dL (70-99); Potassium, Blood 3.9 mmol/L (3.5-5.5); Sodium, Blood 138 mmol/L (136-145); Total Protein, Blood 7.5 g/dL (6.4-8.2)
[2020-08-20 19:37] LABS: Troponin I <0.015 ng/mL (0.000-0.040)
== END 2020-08-20 21:34 | disposition home or self-care (01) ==
LOC: ER 18:16
PROVIDERS: Emergency Medicine
DX: E87.8 Other disorders of electrolyte and fluid balance, not elsewhere classified (principal); N18.30 Chronic kidney disease, stage 3 unspecified; I10 Essential (primary) hypertension; E11.40 Type 2 diabetes mellitus with diabetic neuropathy, unspecified; K21.9 Gastro-esophageal reflux disease without esophagitis; E78.5 Hyperlipidemia, unspecified; Z79.899 Other long term (current) drug therapy; Z87.891 Personal history of nicotine dependence
CPT/HCPCS: 36415; 70450; 80053; 84443; 84484; 85025; 96360; 99284-25; G0480; J7030

== ENCOUNTER 2020-10-22 10:42 | Emergency (ER) | payer OTHER ==
[~2020-10-22] VITALS: Ht 180.3 cm; Wt 120.2 kg
[2020-10-22 11:16] LABS: BASOPHILS ABSOLUTE AUTO 0.04 K/mm3 (0.00-0.23); BASOPHILS PERCENT AUTO 0 % (0-2); EOSINOPHILS ABSOLUTE AUTO 0.22 K/mm3 (0.00-0.68); EOSINOPHILS PERCENT AUTO 1 % (0-6); Hematocrit 41.7 % (37.0-53.0); Hemoglobin 13.8 g/dL (13.5-17.5); IMMATURE GRAN ABSOLUTE AUTO 0.15 K/mm3 (0.00-0.10); IMMATURE GRAN PERCENT AUTO 1 % (0-1); LYMPHOCYTES ABSOLUTE AUTO 2.76 K/mm3 (0.84-5.20); LYMPHOCYTES PERCENT AUTO 13 % (21-46); MONOCYTES ABSOLUTE AUTO 1.81 K/mm3 (0.16-1.47); MONOCYTES PERCENT AUTO 9 % (4-13); Mean Corpuscular HGB 28.3 pg (26.0-34.0); Mean Corpuscular HGB Conc 33.1 g/dL (31.5-36.5); Mean Corpuscular Volume 86 fL (80-100); NEUTROPHILS ABSOLUTE AUTO 15.88 K/mm3 (1.96-9.15); NEUTROPHILS PERCENT AUTO 76 % (41-73); Platelet Count 296 K/mm3 (150-400); RDW Coefficient Variation 13.9 % (11.7-14.2); RDW Standard Deviation 43.3 fL (35.1-46.3); Red Blood Cell Count 4.88 M/mm3 (4.30-5.90); White Blood Cell Count 20.86 K/mm3 (4.00-11.30)
[2020-10-22 11:36] LABS: Troponin I <0.015 ng/mL (0.000-0.040)
[2020-10-22 11:42] LABS: Alanine Aminotransfer (ALT/SGP 26 U/L (12-78); Albumin, Blood 3.1 g/dL (3.4-5.0); Albumin/Globulin Ratio 0.6 (0.8-1.8); Alk Phos 107 U/L (50-136); Anion Gap 5 mmol/L (6-16); Aspartate Aminotrans (AST/SGOT 61 U/L (12-37); Bilirubin, Total 0.8 mg/dL (0.1-1.0); Blood Urea Nitrogen 24 mg/dL (8-24); CO2, Blood 27 mmol/L (21-32); Calcium, Blood 9.2 mg/dL (8.5-10.1); Chloride, Blood 103 mmol/L (98-108); Globulin, Blood 5.5 g/dL (2.2-4.0); Glomerular Filtration Rate 46 (60-); Glucose, Blood 98 mg/dL (70-99); Potassium, Blood 5.7 mmol/L (3.5-5.5); Sodium, Blood 135 mmol/L (136-145); Total Protein, Blood 8.6 g/dL (6.4-8.2)
[2020-10-22 13:20] LABS: CPK Creatine Kinase 193 U/L (39-308)
[2020-10-22 15:20] LABS: Source, Urine Clean Catch
[2020-10-22 15:36] LABS: Appearance, Urine Clear (Clear); Bilirubin, Urine Neg (Neg); Blood, Urine 2+ (Neg); Color, Urine Yellow (P-Yellow); Glucose Qualitative, Urine Neg (Neg); Ketones, Urine Neg (Neg); Leukocyte Esterase, Urine 1+ (Neg); Nitrite, Urine Pos (Neg); Protein, Urine 2+ (Neg); Urobilinogen, Urine NORM (Normal)
[2020-10-22 15:55] LABS: Red Blood Cells, Urine 0-2 /hpf (0-2)
[2020-10-22 15:56] LABS: Bacteria Many /hpf; Squamous Epithelial Cells Not Seen /hpf (Few)
[2020-10-22] MEDS ORDERED: SULTRIDS PO (16:31)
[2020-10-22] MEDS ORDERED: Acetaminophen500 MG PO (16:32)
[2020-10-22] MEDS ORDERED: LIDO700A20 TOP (16:32)
== END 2020-10-22 17:00 | disposition home or self-care (01) ==
LOC: ER 10:42
PROVIDERS: Physician Assistant; Student in an Organized Health Care Education/Training Program
DX: S43.421A Sprain of right rotator cuff capsule, initial encounter (principal); I12.9 Hypertensive chronic kidney disease with stage 1 through stage 4 chronic kidney disease, or unspecified chronic kidney disease; E11.22 Type 2 diabetes mellitus with diabetic chronic kidney disease; N18.30 Chronic kidney disease, stage 3 unspecified; G20 Parkinson's disease; N39.0 Urinary tract infection, site not specified; E86.0 Dehydration; K21.9 Gastro-esophageal reflux disease without esophagitis; E11.40 Type 2 diabetes mellitus with diabetic neuropathy, unspecified; Z91.81 History of falling; Z79.82 Long term (current) use of aspirin; Z79.899 Other long term (current) drug therapy; Z87.891 Personal history of nicotine dependence; Z79.4 Long term (current) use of insulin; Z79.02 Long term (current) use of antithrombotics/antiplatelets; W01.0XXA Fall on same level from slipping, tripping and stumbling without subsequent striking against object, initial encounter
CPT/HCPCS: 36415; 51701; 70450; 71045; 73030; 80053; 81001; 82550; 84484; 85025; 87077; 87086; 87186; 93005; 93010; 96374; 96375; 99285-25; J0696; J1170; J7030

== ENCOUNTER 2021-03-07 11:36 | Observation (INO) | payer OTHER ==
[~2021-03-07 11:36] MED LIST changes: +Acetaminophen500 MG PO; +LIDO700A20 TOP; +SULTRIDS PO
[2021-03-07] MEDS ORDERED: LOSA25 PO (12:31)
[2021-03-07 12:41] LABS: BASOPHILS ABSOLUTE AUTO 0.08 K/mm3 (0.00-0.23); BASOPHILS PERCENT AUTO 0 % (0-2); EOSINOPHILS ABSOLUTE AUTO 0.03 K/mm3 (0.00-0.68); EOSINOPHILS PERCENT AUTO 0 % (0-6); Hematocrit 38.9 % (37.0-53.0); IMMATURE GRAN PERCENT AUTO 1 % (0-1); LYMPHOCYTES ABSOLUTE AUTO 1.27 K/mm3 (0.84-5.20); LYMPHOCYTES PERCENT AUTO 5 % (21-46); MONOCYTES ABSOLUTE AUTO 1.68 K/mm3 (0.16-1.47); MONOCYTES PERCENT AUTO 7 % (4-13); Mean Corpuscular HGB Conc 33.4 g/dL (31.5-36.5); Mean Corpuscular Volume 84 fL (80-100); Mean Platelet Volume 8.7 fL (9.1-12.4); NEUTROPHILS ABSOLUTE AUTO 22.66 K/mm3 (1.96-9.15); NEUTROPHILS PERCENT AUTO 87 % (41-73); Platelet Count 282 K/mm3 (150-400); RDW Coefficient Variation 15.2 % (11.7-14.2); RDW Standard Deviation 45.7 fL (35.1-46.3); Red Blood Cell Count 4.65 M/mm3 (4.30-5.90); White Blood Cell Count 26.02 K/mm3 (4.00-11.30)
[2021-03-07 13:04] LABS: Albumin, Blood 3.1 g/dL (3.4-5.0); Albumin/Globulin Ratio 0.7 (0.8-1.8); Bilirubin, Total 0.4 mg/dL (0.1-1.0); Bun/Creatinine Ratio 16.8 (12.0-20.0); Calcium, Blood 8.9 mg/dL (8.5-10.1); Creatinine, Blood 1.25 mg/dL (0.60-1.20); Globulin, Blood 4.5 g/dL (2.2-4.0); Potassium, Blood 3.8 mmol/L (3.5-5.5); Total Protein, Blood 7.6 g/dL (6.4-8.2)
[2021-03-07 13:25] LABS: CPK Creatine Kinase 423 U/L (39-308); Creatine Kinase MB 1.5 ng/mL (0.0-3.6); Creatine Kinase MB Index 0.4 (0.0-4.0); Troponin I <0.015 ng/mL (0.000-0.040)
[2021-03-07 14:02] LABS: Influenza A, PCR NEGATIVE (NEGATIVE); Influenza B, PCR NEGATIVE (NEGATIVE); Resp Syncytial Virus, PCR NEGATIVE (NEGATIVE); SARS-Cov-2 (COVID-19) PCR, MMC NEGATIVE (NEGATIVE)
[2021-03-07 14:22] LABS: Base Excess Venous 3.2 mmol/L; Bicarbonate Venous 26.5 mmol/L (24.0-30.0); PCO2 Venous 46.3 mmHg (38-42); PO2 Venous 55.4 mmHg (38-42); pH Blood Venous 7.39 (7.34-7.37)
[2021-03-07 14:23] LABS: Source, Urine Voided
[2021-03-07 14:31] LABS: Appearance, Urine Clear (Clear); Bilirubin, Urine Neg (Neg); Blood, Urine 3+ (Neg); Color, Urine Yellow (P-Yellow); Glucose Qualitative, Urine Neg (Neg); Ketones, Urine Neg (Neg); Leukocyte Esterase, Urine 1+ (Neg); Nitrite, Urine Neg (Neg); Protein, Urine 2+ (Neg); Specific Gravity, Urine 1.015 (1.003-1.022); Urobilinogen, Urine NORM (Normal)
[2021-03-07 14:43] LABS: Amorphous Light (0-Heavy); Bacteria Many /hpf; Squamous Epithelial Cells Rare /hpf (Few)
--- NOTE | 2021-03-08 04:45 | NUR ---
SHIFT SUMMARY PT IS AAOX1, BARELY SPEAKS,HANDS SHAKING DUE TO PARKINSON DISEASE. PT SEEMED CONFUSED BUT EASYLY REDIRECTED. PT IS PLEASANT AND COOPERATIVE. PT WAS COMPLAINING OF PAIN BEHIND HIS HEAD . TYLENOL WAS GIVEN AND PT WAS REASSESED AND STATED HE FELT BETTER.OCONNOR IS PATENT AND DRAINING. VSS REVIEWED. ALL MEDS WERE GIVEN PER EMAR. PT IS SLEEPING AT THIS TIME. BED ALRM ACTIVATED IN LOWER POSITION AND CALL LIGHT IN REACH. WILL CONTINUE TO MONITOR.
[2021-03-08 05:20] LABS: Hematocrit 37.7 % (37.0-53.0); Hemoglobin 12.3 g/dL (13.5-17.5); Mean Corpuscular HGB 27.7 pg (26.0-34.0); Mean Corpuscular HGB Conc 32.6 g/dL (31.5-36.5); Mean Corpuscular Volume 85 fL (80-100); Mean Platelet Volume 9.3 fL (9.1-12.4); Platelet Count 242 K/mm3 (150-400); RDW Coefficient Variation 15.2 % (11.7-14.2); RDW Standard Deviation 47.2 fL (35.1-46.3); Red Blood Cell Count 4.44 M/mm3 (4.30-5.90); White Blood Cell Count 25.92 K/mm3 (4.00-11.30)
[2021-03-08 06:31] LABS: Bun/Creatinine Ratio 14.8 (12.0-20.0); Calcium, Blood 8.8 mg/dL (8.5-10.1); Creatinine, Blood 1.28 mg/dL (0.60-1.20); Potassium, Blood 3.7 mmol/L (3.5-5.5)
--- NOTE | 2021-03-08 18:59 | NUR ---
SHIFT SUMMARY PT AAOX4 BUT DOES GET PLEASANTLY CONFUSED. FORGETFUL AT TIMES AND HAS TO BE REORINETED TO PLACE AND TIME. C/O PAIN TO LEFT SHOULDER FROM FALL PRIOR TO ADMISSION. NOTIFIED MD AND HAD ORDERS FOR XRAY TO SHOULDER. MEDICATED WITH TYLENOL PRN. VSS. NAD NOTED. HAS NO C/O SOB OR N/V VOICED. HAD LARGE INCONTINENT BM TODAY. BLOOD SUGARS TAKEN AND COVERED PER APR. DID SIT UP IN CHAIR FOR BREAKFAST AND LUNCH WITH HELP OF PT. AWAITING RECOMMENDATIONS FOR PLACEMENT. CALL LIGHT WITHIN REACH. WILL MONITOR IN CARE
--- NOTE | 2021-03-09 04:44 | NUR ---
SHIFT SUMMARY PT IS PLEASANT AND GOOPERATIVE WITH CARE,FORGETFUL AT TIMES,BUT EASILY REDIRECTED.NO COMPLAINTS OF PAIN. PT SEEMS MORE ALERT TODAY.OCONNOR CATHETER PATENT AND DRAINING. VSS REVIEWED. ALL MEDS GIVEN PER EMAR. PT IS RESTING COMFORTABLY THIS TIME, NO CONCERNS VOICED. BED IN LOWER POSITION, ALARM ACTIVATED AND CALL LIGHT WITHIN REACH. WILL CONTINUE TO MONITOR.
[2021-03-09 04:54] LABS: Hematocrit 37.3 % (37.0-53.0); Mean Corpuscular HGB 27.5 pg (26.0-34.0); Mean Corpuscular HGB Conc 32.2 g/dL (31.5-36.5); Mean Corpuscular Volume 86 fL (80-100); Mean Platelet Volume 9.2 fL (9.1-12.4); Platelet Count 236 K/mm3 (150-400); RDW Coefficient Variation 15.5 % (11.7-14.2); RDW Standard Deviation 48.1 fL (35.1-46.3); Red Blood Cell Count 4.36 M/mm3 (4.30-5.90)
[2021-03-09 05:37] LABS: Bun/Creatinine Ratio 14.6 (12.0-20.0); Calcium, Blood 8.6 mg/dL (8.5-10.1); Creatinine, Blood 1.51 mg/dL (0.60-1.20); Potassium, Blood 3.8 mmol/L (3.5-5.5)
--- NOTE | 2021-03-09 18:41 | NUR ---
SHIFT SUMMARY PT IS AAOX4. SAT UP TO CHAIR MORE TODAY AND MORE ALERT. HAD A LARGE LOOSE BM AND INCONTINENT EPISODE. VSS. NAD NOTED. HAD SOME C/O PAIN TO HIS LEFT SHOULDER AND NOTED BLUE AND PURPLE BRUISING TO ARM. MEDICATED WITH OXY X2 TODAY AND STATED HAD RELIEF. X-RAY DONE AND WNL. NO N/V OR SOB VOICED. ON ROOM AIR. DID AMBULATE DOWN THE CRAWFORD ON THE WALKER WITH HELP OF 1 ABOUT 100 STEPS. WORKED WITH PT IN THE AM WELL. TOLERATED ALL MEALS. WILL CONTINUE TO MONITOR IN CARE.
--- NOTE | 2021-03-10 04:40 | NUR ---
SHIFT SUMMARY NO ACUTE EVENTS OVER NIGHT. ALL MEDS WERE GIVEN PER EMAR. VSS REVIEWED. OCONNOR CATHETER PATENT AND DRAINING . NO COMPLAINTS OF PAIN AND SOB DURING THE NIGHT. PT IS SLEEPING AT THIS TIME. BED ALARM ACTIVATED IN LOWER POSITION AND CALL LIGHT IN REACH.WILL CONTINUE TO MONITOR.
--- NOTE | 2021-03-11 04:05 | NUR ---
SHIFT SUMMARY A&OX3 FORGETFUL, AMBULATED FROM CHAIR TO BED 1PA WITH USE OF FWW. OCONNOR REMAINS IN PLACE WITH LARGE VOLUME OUTPUT CLEAR YELLOW URINE. NO COMPLAINT OF PAIN. LCTA E/U RESP. NO ADVENTITIOUS HEART SOUNDS. BOWEL TONES ACTIVE X4 QUADRANTS. SLEPT WELL THROUGH THE NIGHT
[2021-03-11 06:10] LABS: Bun/Creatinine Ratio 19.4 (12.0-20.0); Calcium, Blood 8.5 mg/dL (8.5-10.1); Creatinine, Blood 1.34 mg/dL (0.60-1.20)
--- NOTE | 2021-03-11 19:48 | NUR ---
SHIFT SUMMARY PT AXO X4 THOUGH NOME, FORGETFUL BUT PLEASANT. UP TO CHAIR FOR MOST OF THE DAY. CBG ACHS. PT REPORTED CONSTIPATION AT END OF SHIFT, MIRALAX ORDERED BID. PT DENIES PAIN, SOB AND NV THIS SHIFT. NO IV IN PLACE. UP WITH 1 ASSIST, FWW AND GB. NO ACUTE CHANGES THIS SHIFT. BED IN LOW POSITION, CALL LIGHT WITHIN REACH. REPORT GIVEN TO SKI MAKER WOOD NURSE WHO ASSUMES CARE.
--- NOTE | 2021-03-12 01:35 | NUR ---
BLADDER SCAN >1000 MLS. STRAIGHT CATH PERFORMED W/STERILE TECHNIQUE MAINTAINED FOR 1400 MLS UO.
--- NOTE | 2021-03-12 05:01 | NUR ---
SHIFT SUMMARY NO ACUTE CHANGES THIS SHIFT. AOX3-UNSURE DATE, READS WHITE BOARD. FORGETFUL & CONFUSED @TIMES. VSS. PT STRAIGHT CATH'D c 1400ML URINE OUT. DENIES N/V, SOB OR PAIN. PLAN TO DC SNF WHEN BED AVAILABLE. CALL LIGHT & BED ALARM IN PLACE. WCTM.
[2021-03-12 12:47] LABS: Influenza A, PCR NEGATIVE (NEGATIVE); Influenza B, PCR NEGATIVE (NEGATIVE); Resp Syncytial Virus, PCR NEGATIVE (NEGATIVE); SARS-Cov-2 (COVID-19) PCR, MMC NEGATIVE (NEGATIVE)
[2021-03-12] MEDS ORDERED: AMLO5 PO (13:43)
[2021-03-12] MEDS ORDERED: CARBIDOPA-LEVO1 EA21 PO (13:44)
[2021-03-12] MEDS ORDERED: HUMALOG KW100 UNIT/1 SC (13:45)
[2021-03-12] MEDS ORDERED: LEVFLO500 PO (13:46)
[2021-03-12] MEDS ORDERED: ROXYBOND5 MG PO (13:46)
[2021-03-12] MEDS ORDERED: VISBIOME 112.51 EACH PO (13:46)
[2021-03-12] MEDS ORDERED: MIRALAX17 GM PO (13:46)
[2021-03-12] MEDS ORDERED: METF500C PO (16:00)
--- NOTE | 2021-03-12 18:14 | NUR ---
SUMMARY PT DISCHARGED TO [facility], ATTEMPTED TO CALL REPORT, LINE BUSY
--- NOTE | 2021-03-12 18:18 | NUR ---
ATTEMPTING TO CALL REPORT AGAIN
--- NOTE | 2021-03-12 18:30 | NUR ---
REPORT GIVEN TO THE NURSE AT [facility]
== END 2021-03-12 18:15 ==
LOC: ER 11:36 → ERHOLD 11:37 → MEDS 11:37
PROVIDERS: Emergency Medicine; Internal Medicine; Nurse Practitioner Acute Care; ADMIT Internal Medicine
DX: G20 Parkinson's disease (principal); A41.81 Sepsis due to Enterococcus; A41.4 Sepsis due to anaerobes; N39.0 Urinary tract infection, site not specified; I12.9 Hypertensive chronic kidney disease with stage 1 through stage 4 chronic kidney disease, or unspecified chronic kidney disease; E11.22 Type 2 diabetes mellitus with diabetic chronic kidney disease; N18.30 Chronic kidney disease, stage 3 unspecified; N40.0 Benign prostatic hyperplasia without lower urinary tract symptoms; E66.01 Morbid (severe) obesity due to excess calories; Z68.36 Body mass index [BMI] 36.0-36.9, adult; Z79.4 Long term (current) use of insulin; Z79.02 Long term (current) use of antithrombotics/antiplatelets; Z20.822 Contact with and (suspected) exposure to COVID-19
CPT/HCPCS: 0241U; 36415; 51701; 51702; 70450; 71045; 73030; 80048; 80053; 81001; 82550; 82553; 82803; 82947; 84484; 85025; 85027; 87077; 87086; 87186; 93005; 93010; 96372; 97110; 97116; 97162; 97166; 97530; 97535; 99285-25; A9270; G0378; J0696; J1650; J1815; J7030; J7120

== ENCOUNTER 2021-06-28 13:07 | Emergency (ER) | payer OTHER ==
[~2021-06-28] VITALS: Ht 180.3 cm; Wt 122.5 kg
[~2021-06-28 13:07] MED LIST changes: +CARBIDOPA-LEVO1 EA21 PO; +HUMALOG KW100 UNIT/1 SC; +LEVFLO500 PO; +LOSA25 PO; +METF500C PO; +MIRALAX17 GM PO; +ROXYBOND5 MG PO; +VISBIOME 112.51 EACH PO
== END 2021-06-28 16:00 | disposition home or self-care (01) ==
LOC: ER 13:07
DX: S70.02XA Contusion of left hip, initial encounter (principal); S00.83XA Contusion of other part of head, initial encounter; M54.2 Cervicalgia; K21.9 Gastro-esophageal reflux disease without esophagitis; E78.5 Hyperlipidemia, unspecified; N18.30 Chronic kidney disease, stage 3 unspecified; E11.22 Type 2 diabetes mellitus with diabetic chronic kidney disease; I12.9 Hypertensive chronic kidney disease with stage 1 through stage 4 chronic kidney disease, or unspecified chronic kidney disease; Z79.4 Long term (current) use of insulin; Z79.899 Other long term (current) drug therapy; W18.30XA Fall on same level, unspecified, initial encounter
CPT/HCPCS: 36415; 70450; 72125; 73502; 96374; 99284-25; J3010

== ENCOUNTER 2021-07-18 18:55 | Inpatient (IN) | payer OTHER ==
[~2021-07-18] VITALS: Ht 172.7 cm; Wt 123.6 kg
[2021-07-18 19:18] LABS: BASOPHILS ABSOLUTE AUTO 0.04 K/mm3 (0.00-0.23); BASOPHILS PERCENT AUTO 0 % (0-2); EOSINOPHILS ABSOLUTE AUTO 0.13 K/mm3 (0.00-0.68); EOSINOPHILS PERCENT AUTO 1 % (0-6); Hematocrit 38.6 % (37.0-53.0); Hemoglobin 12.3 g/dL (13.5-17.5); IMMATURE GRAN ABSOLUTE AUTO 0.06 K/mm3 (0.00-0.10); IMMATURE GRAN PERCENT AUTO 0 % (0-1); LYMPHOCYTES ABSOLUTE AUTO 1.29 K/mm3 (0.84-5.20); LYMPHOCYTES PERCENT AUTO 8 % (21-46); MONOCYTES ABSOLUTE AUTO 1.32 K/mm3 (0.16-1.47); MONOCYTES PERCENT AUTO 8 % (4-13); Mean Corpuscular HGB 27.8 pg (26.0-34.0); Mean Corpuscular HGB Conc 31.9 g/dL (31.5-36.5); Mean Corpuscular Volume 87 fL (80-100); Mean Platelet Volume 9.4 fL (9.1-12.4); NEUTROPHILS ABSOLUTE AUTO 13.15 K/mm3 (1.96-9.15); NEUTROPHILS PERCENT AUTO 82 % (41-73); Platelet Count 255 K/mm3 (150-400); RDW Coefficient Variation 15.1 % (11.7-14.2); RDW Standard Deviation 48.4 fL (35.1-46.3); Red Blood Cell Count 4.43 M/mm3 (4.30-5.90); White Blood Cell Count 15.99 K/mm3 (4.00-11.30)
[2021-07-18] MEDS ORDERED: ESCI10 PO (19:23)
[2021-07-18] MEDS ORDERED: FURO20 PO (19:24)
[2021-07-18] MEDS ORDERED: DONE5 PO (19:24)
[2021-07-18] MEDS ORDERED: CLOP75 PO (19:24)
[2021-07-18] MEDS ORDERED: TAMS.4ER PO (19:26)
[2021-07-18] MEDS ORDERED: Crestor20 MG PO (19:26)
[2021-07-18 19:48] LABS: Albumin, Blood 3.2 g/dL (3.4-5.0); Albumin/Globulin Ratio 0.7 (0.8-1.8); Bilirubin, Total 0.4 mg/dL (0.1-1.0); Bun/Creatinine Ratio 16.7 (12.0-20.0); Creatinine, Blood 1.5 mg/dL (0.60-1.20); Globulin, Blood 4.7 g/dL (2.2-4.0); Potassium, Blood 4.4 mmol/L (3.5-5.5); Total Protein, Blood 7.9 g/dL (6.4-8.2)
[2021-07-18 22:22] LABS: Source, Urine Clean Catch
[2021-07-18 22:25] LABS: Bilirubin, Urine Neg (Neg); Blood, Urine 2+ (Neg); Glucose Qualitative, Urine Neg (Neg); Ketones, Urine Neg (Neg); Leukocyte Esterase, Urine 2+ (Neg); Nitrite, Urine Pos (Neg); Protein, Urine 3+ (Neg); Specific Gravity, Urine 1.015 (1.003-1.022); Urobilinogen, Urine NORM (Normal)
[2021-07-18 22:30] LABS: Appearance, Urine Hazy (Clear); Color, Urine Yellow (P-Yellow)
[2021-07-18 22:31] LABS: Bacteria Many /hpf; Red Blood Cells, Urine Rare /hpf (0-2); Squamous Epithelial Cells Not Seen /hpf (Few); White Blood Cells, Urine 50-100 /hpf (0-5)
--- NOTE | 2021-07-18 23:27 | NUR ---
PT HERE VIA ALBER FROM ER. PT TRANSFERRED WITH 4 STAFF MEMBERS TO MEDICAL FLOOR BED. PT IS ALERT, AND IS ABLE TO COMMUNICATE WITH MOST QUESTIONS WITH YES/NO RESPONSE. PT IS ALERT TO PERSON, AND TO HOSPITAL. REPORT FROM ER COLORIST PHOTOGRAPHY - IS PT SELF CATHS 3 TIMES PER DAY. OCONNOR PLACED BY ER STAFF. PT IS ABLE TO MOVE HIS RIGHT ARM UP TO HIS FACE, AND IS ABLE TO PLANTER FLEX HIS RIGHT FOOT. PT IS ABLE TO GRAB MY FINGERS WITH HIS LEFT HAND, BUT HIS STRENGTH IS DECREASED. PT IS UNABLE TO PLANTER FLEX HIS LEFT FOOT. PT IS NPO. PT BROUGHT IN HIS HOME BIPAP - WILL CONTACT FOR ORDERS. CALL LIGHT WITHIN REACH OF RIGHT HAND. WILL CONTINUE TO MONITOR UNTIL AM SHIFT CHANGE.
[2021-07-19] MEDS ORDERED: SENNA LAXATIVE8.6 MG PO (00:05)
[2021-07-19 05:36] LABS: BASOPHILS ABSOLUTE AUTO 0.04 K/mm3 (0.00-0.23); BASOPHILS PERCENT AUTO 0 % (0-2); EOSINOPHILS ABSOLUTE AUTO 0.03 K/mm3 (0.00-0.68); EOSINOPHILS PERCENT AUTO 0 % (0-6); Hematocrit 34.4 % (37.0-53.0); IMMATURE GRAN ABSOLUTE AUTO 0.13 K/mm3 (0.00-0.10); IMMATURE GRAN PERCENT AUTO 1 % (0-1); LYMPHOCYTES ABSOLUTE AUTO 1.98 K/mm3 (0.84-5.20); LYMPHOCYTES PERCENT AUTO 11 % (21-46); MONOCYTES ABSOLUTE AUTO 1.87 K/mm3 (0.16-1.47); MONOCYTES PERCENT AUTO 10 % (4-13); Mean Corpuscular HGB 27.3 pg (26.0-34.0); Mean Corpuscular Volume 85 fL (80-100); Mean Platelet Volume 9.5 fL (9.1-12.4); NEUTROPHILS ABSOLUTE AUTO 13.89 K/mm3 (1.96-9.15); NEUTROPHILS PERCENT AUTO 78 % (41-73); Platelet Count 213 K/mm3 (150-400); RDW Coefficient Variation 15.4 % (11.7-14.2); RDW Standard Deviation 47.8 fL (35.1-46.3); Red Blood Cell Count 4.03 M/mm3 (4.30-5.90); White Blood Cell Count 17.94 K/mm3 (4.00-11.30)
[2021-07-19 05:53] LABS: Albumin, Blood 2.7 g/dL (3.4-5.0); Albumin/Globulin Ratio 0.7 (0.8-1.8); Bilirubin, Total 0.6 mg/dL (0.1-1.0); Bun/Creatinine Ratio 15.9 (12.0-20.0); Calcium, Blood 8.1 mg/dL (8.5-10.1); Creatinine, Blood 1.45 mg/dL (0.60-1.20); Globulin, Blood 4.1 g/dL (2.2-4.0); Potassium, Blood 3.8 mmol/L (3.5-5.5); Total Protein, Blood 6.8 g/dL (6.4-8.2)
--- NOTE | 2021-07-19 05:55 | NUR ---
0343 - FIRST BAG NORMAL SALINE INFUSED WIDE OPEN, SEE EMAR FOR 2ND BAG NORMAL SALINE INFUSED WIDE OPEN. CONTACTED PHARMACIST REGARDING NORMAL SALINE ORDER - REVIEWED ABOVE WITH PHARMACIST. NORMAL SALINE CURRENTLY INFUSING AT 200CC HOUR.
--- NOTE | 2021-07-19 07:25 | NUR ---
SHIFT SUMMARY - NO ACUTE CHANGES SINCE ADMIT LAST NOC. PT CONTINUES TO RESPOND OCCASIONALLY WITH VERBAL COMMUNICATION - REPORTED HE WANTED HIS BIPAP OFF THIS AM. PT HAS PAS STOCKINGS ON - BLE EDEMA 1+ PLUS NOTED THIS AM. NORMAL SALINE 200CC INFUSING AT THIS TIME. PT CONTINUES NPO. PT HAS 2 IV'S - ONE TO GENEVA, AND OTHER TO RAC IV. IV FLUIDS INFUSING TO GENEVA IV SITE WITHOUT COMPLICATIONS THROUGHOUT THE NIGHT. NO CHANGE IN NEURO CHECKS SINCE ADMIT LAST NOC. CALL LIGHT PLACED NEXT TO PT'S RIGHT HAND - PT VERBALIZED INSTRUCTIONS ON USE. BED IN LOW POSITION. REPORT GIVEN TO AM SHIFT.
--- NOTE | 2021-07-19 12:48 | NUR ---
PT COOPERATIVE AND PLEASANT. A/O X3. PT SLOW TO RESPOND. SLIGHT LT SIDE FACIAL DROOP PRESENT. C/O PAIN IN RT SIDE OF BACK. H/R REGUALAR. NSR AT 67 PER TELE STRIP. MURMUR NOTED. LUNGS CLEAR BILATERALLY. WEAR CPAP AT NIGHT. OCONNOR DRAINING TO GRAVITY. CLEAR YELLOW URINE NOTED. LG BM. +2 PITTING EDEMA IN LOWER EXTREMITIES. SCD IN PLACE. NPO AT THIS TIME. PER DOCTOR SMALL SIPS OF WATER ARE OKAY IN ORDER TO TAKE MEDICATIONS. PT ABLE TO SWALLOW SMALL SIPS OF WATER. SPEECH EVALUATION ORDERED. PT ABLE TO RAISE RT INDEX FINGER TO NOSE, LT INDEX WAS 5INCHES AWAY FORM NOSE. DECREASED WOOD FLOUR MILLER STRENGTH IN LT HAND COMPARED TO RT. LUE/LLE WEAKNESS NOTED. RT HAND RAISED ABOVE LT WITH EYES CLOSED. BED IN LOW POSITION, CLL LIGHT IN REACH, CALLS APPROPRIATLY.
--- NOTE | 2021-07-19 18:16 | NUR ---
PT COOPERATIVE WITH CARE AND PLEASANT. A/O X3. FAMILY AT [facility]. NO C/O PAIN. ON TELE. NSR PER TECH. MURMUR NOTED. LUNGS CLEAR BILAT. BREATHING IS EASY AND UNLABORED. ON ROOM AIR. [address] BOWEL [address]OVEMENTS. OCONNOR IN PLACE DRAINING TO GRAVITY. CLEAR YELLOW URINE. PT WORKED WITH PT/OT TODAY. LEFT SIDE STRENGTH DEFICIT. PT ONT ABLE TO MOVE LT SIDE INDEPENDENTLY. NEEDS ASSISTANCE. ABLE TO SQUEEZE WITH BOTH HANDS. PT EVALUATED BY SPEECH THERAPY FOR SWALLOW EVAL. PT IS MOVED TO REGULAR ADA DIET. BED IN LOW POSITION, CALL LIGHT IN REACH, CALLS APPROPRIATLY.
--- NOTE | 2021-07-19 18:44 | NUR ---
AGREE WITH STUDENT NOTES AND DOCUMENTATIONS
[2021-07-20 04:34] LABS: BASOPHILS ABSOLUTE AUTO 0.04 K/mm3 (0.00-0.23); BASOPHILS PERCENT AUTO 0 % (0-2); EOSINOPHILS PERCENT AUTO 2 % (0-6); Hematocrit 32.7 % (37.0-53.0); Hemoglobin 10.3 g/dL (13.5-17.5); IMMATURE GRAN ABSOLUTE AUTO 0.07 K/mm3 (0.00-0.10); IMMATURE GRAN PERCENT AUTO 1 % (0-1); LYMPHOCYTES ABSOLUTE AUTO 2.05 K/mm3 (0.84-5.20); LYMPHOCYTES PERCENT AUTO 14 % (21-46); MONOCYTES ABSOLUTE AUTO 1.25 K/mm3 (0.16-1.47); MONOCYTES PERCENT AUTO 9 % (4-13); Mean Corpuscular HGB 27.4 pg (26.0-34.0); Mean Corpuscular HGB Conc 31.5 g/dL (31.5-36.5); Mean Corpuscular Volume 87 fL (80-100); Mean Platelet Volume 9.5 fL (9.1-12.4); NEUTROPHILS ABSOLUTE AUTO 11.01 K/mm3 (1.96-9.15); NEUTROPHILS PERCENT AUTO 75 % (41-73); Platelet Count 188 K/mm3 (150-400); RDW Coefficient Variation 15.3 % (11.7-14.2); RDW Standard Deviation 49.1 fL (35.1-46.3); Red Blood Cell Count 3.76 M/mm3 (4.30-5.90); White Blood Cell Count 14.72 K/mm3 (4.00-11.30)
--- NOTE | 2021-07-20 04:34 | NUR ---
SPECIALIZED LANGUAGE INSTRUCTOR SUMMARY ADMITTED FOR AMS. PT IS A DNR. PLAN FOR TREATMENT FOR UTI. PT WITH SOME LEFT SIDED WEAKNESS. LIMITED CONVERSATION AND PT UNABLE TO TELL ME WHY HE'S UNCOMFORTABLE AND HOW TO HELP. SLOW TO RESPOND. ALERT AND ORIENTED X2-3, THINKS IT'S 2003. COOPERATIVE WITH CARE. PLEASANT. ABLE TO ASSIST WITH ROLLING.
[2021-07-20 04:50] LABS: Albumin, Blood 2.4 g/dL (3.4-5.0); Anion Gap 8 mmol/L (6-16); Blood Urea Nitrogen 22 mg/dL (8-24); Bun/Creatinine Ratio 15.1 (12.0-20.0); CO2, Blood 24 mmol/L (21-32); Calcium, Blood 8.2 mg/dL (8.5-10.1); Chloride, Blood 108 mmol/L (98-108); Creatinine, Blood 1.46 mg/dL (0.60-1.20); Glomerular Filtration Rate 50 (60-); Glucose, Blood 160 mg/dL (70-99); Phosphorus, Blood 2.2 mg/dL (2.5-4.9); Potassium, Blood 3.7 mmol/L (3.5-5.5); Sodium, Blood 140 mmol/L (136-145)
--- NOTE | 2021-07-20 16:11 | NUR ---
DAY SHIFT SUMMARY 71 YR OLD MALE PT WITH AMS AND UTI. RECEIVING ABX VIA IV. OCONNOR INTACT/PATENT/DRAINING VIA GRAVITY WITH CLEAR DARK YELLOW COLOR. A/OX3, RA DURING DAY SHIFT WITH CPAP USE FOR NIGHTS AND CONT PULSE OX. PT ON TELE WITH SINUS JOSE AT 57. CALL LIGHT WITHIN REACH AND ABLE TO CALL APPROPRIATE. NO ACUTE CHANGES THIS SHIFT.
--- NOTE | 2021-07-20 21:20 | NUR ---
TEMP ELEVATED EARLIER: 100.1. COOL WATER, COVERS REMOVED DOWN TO SHEET AND COLD PACKS TO AXILA. EFFECTIVE. TEMP 98.7 NOW. CALL LIGHT IN REACH
--- NOTE | 2021-07-21 04:06 | NUR ---
EKG MONITOR SUMMARY PT ADMIT; R/O CVA; AMS AND UTI. PT HX OF BPH, CKD, PARKINSONS, GERD, HTN, DT2, NEUROPATHY. PT IS A/OX3. IT IS ABLE TO ANSWER QUESTIONS W/LIMITED RESPONSES. PT CAN FOLLOW DIRECTIONS. PT ON CPAP THROUGH THE NIGHT AND CONT PULS OX. OBSERVED FULL BODY TREMORS. PT OCONNOR IN PLACE; CLEAR/DARK URINE. CALL LIGHT IN REACH. PT HAS MILD NON-PITTING EDEMA IN BILATERAL LE.
--- NOTE | 2021-07-21 04:22 | NUR ---
I HAVE READ AND AGREE WITH STUDENTS ASSESSMENT AND DOCUMENTATIONS - JCC
--- NOTE | 2021-07-21 04:31 | NUR ---
APPLICATIONS SALES CONSULTANT SUMMARY ADD PT IS ON TELE. P/TELE STRIP PT SINUS JOSE 61 BPM W/FIRST DEG BLOCK AND PACS.
[2021-07-21 08:16] LABS: BASOPHILS ABSOLUTE AUTO 0.03 K/mm3 (0.00-0.23); BASOPHILS PERCENT AUTO 0 % (0-2); EOSINOPHILS ABSOLUTE AUTO 0.84 K/mm3 (0.00-0.68); EOSINOPHILS PERCENT AUTO 7 % (0-6); Hematocrit 35.2 % (37.0-53.0); Hemoglobin 11.3 g/dL (13.5-17.5); IMMATURE GRAN ABSOLUTE AUTO 0.06 K/mm3 (0.00-0.10); IMMATURE GRAN PERCENT AUTO 1 % (0-1); LYMPHOCYTES ABSOLUTE AUTO 1.91 K/mm3 (0.84-5.20); LYMPHOCYTES PERCENT AUTO 16 % (21-46); MONOCYTES ABSOLUTE AUTO 0.96 K/mm3 (0.16-1.47); MONOCYTES PERCENT AUTO 8 % (4-13); Mean Corpuscular HGB 27.2 pg (26.0-34.0); Mean Corpuscular HGB Conc 32.1 g/dL (31.5-36.5); Mean Corpuscular Volume 85 fL (80-100); Mean Platelet Volume 9.8 fL (9.1-12.4); NEUTROPHILS ABSOLUTE AUTO 7.91 K/mm3 (1.96-9.15); NEUTROPHILS PERCENT AUTO 68 % (41-73); Platelet Count 238 K/mm3 (150-400); RDW Coefficient Variation 14.9 % (11.7-14.2); RDW Standard Deviation 46.7 fL (35.1-46.3); Red Blood Cell Count 4.15 M/mm3 (4.30-5.90); White Blood Cell Count 11.71 K/mm3 (4.00-11.30)
[2021-07-21 08:30] LABS: Albumin, Blood 2.6 g/dL (3.4-5.0); Anion Gap 9 mmol/L (6-16); Blood Urea Nitrogen 22 mg/dL (8-24); Bun/Creatinine Ratio 16.9 (12.0-20.0); CO2, Blood 23 mmol/L (21-32); Calcium, Blood 8.5 mg/dL (8.5-10.1); Chloride, Blood 107 mmol/L (98-108); Glomerular Filtration Rate 58 (60-); Glucose, Blood 172 mg/dL (70-99); Phosphorus, Blood 3.2 mg/dL (2.5-4.9); Sodium, Blood 139 mmol/L (136-145)
--- NOTE | 2021-07-21 16:02 | NUR ---
DAY SHIFT SUMMARY 71 YR OLD MALE PT WITH AMS D/T UTI. OCONNOR INTACT/PATENT AND DRAINING VIA GRAVITY WITH CLEAR DARK YELLOW URINE. A/O X3, CONT PULSE OX, RA DURING THE DAY AND CPAP AT NIGHT. CALL LIGHT WITHIN REACH AND ABLE TO CALL APPROPRIATE. NO ACUTE CHANGES THIS SHIFT.
--- NOTE | 2021-07-22 03:26 | NUR ---
ENVIRONMENTAL AID SUMMARY PT ADMIT W/AMS D/T UTI. A/OX3. PT ON TELE AND CONTINUES TO HAVE EPISODES OF BRADYCARDIA. 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 PT IS IS SLOW TO RESPOND AND RESPONSE IS LIMITED. PT IS PLEASANT. PT IS ON RA DURING DAY AND CPAP DURING THE NIGHT. ROUNDED ON THE PT AND FOUND HIS CPAP OFF. PT STATED IT WASN'T ON. PT D/NOT USE CALL LIGHT T/ASK FOR HELP. REORIENTED TO CALL LIGHT; PT MAY HAVE LIMITED ABILITY/DESIRE TO USE LIGHT FOR HELP. PT HAS OCONNOR; PATENT AND DRAINING. PT IS INCONT OF ; ATTENDS IN PLACE. PT HAS OBSERVABLE TREMORS.
--- NOTE | 2021-07-22 04:46 | NUR ---
I HAVE OBSERVED STUDENT ASSESSMENTS AND HAVE READ HER DOCUMENTATION. I AGREE WITH SAID DOCUMENTATION - GIRMA
[2021-07-22] MEDS ORDERED: CIPR500 PO (14:28)
[2021-07-22] MEDS ORDERED: NYSTATIN15 GM TOP (14:28)
[2021-07-22 14:49] LABS: Influenza A, PCR NEGATIVE (NEGATIVE); Influenza B, PCR NEGATIVE (NEGATIVE); Resp Syncytial Virus, PCR NEGATIVE (NEGATIVE); SARS-Cov-2 (COVID-19) PCR, MMC NEGATIVE (NEGATIVE)
--- NOTE | 2021-07-22 16:32 | NUR ---
DISCHARGE SUMMARY: PATIENT DISCHARGED TO [facility] VIA TRANSPORT. PATIENT'S NOTIFIED BY THE PATIENT. PATIENT STABLE ON RA DURING THE SHIFT. PATIENT HR WAS JOSE AT TIMES (BELOW 55). GENERALLY PATIENT IN THE LOW TO MID 60'S. PATIENT DENIED DIZZINESS, SHORTNESS OF BREATH OR DISCOMFORT. PATIENT UP WITH PT IN THE HALLWAY. PATIENT WORKED WITH OT IN THE ROOM. PATIENT ABLE TO MOBILIZE WITH 1-2, GAIT BELT AND WALKER. PATIENT'S URINE OUTPUT WAS CLEAR YELLOW IN THE OCONNOR CATHETER. PATIENT ALERT AND ORIENTED AND SLOW TO RESPOND AT TIMES. REPORT CALLED TO LESLY AT [facility]. SHE WAS NOTIFIED OF ORDER TO MAINTAIN OCONNOR UNTIL COURSE OF ANTIBIOTICS ARE COMPLETE. UPDATED MED REC (WITH PROBIOTIC ADDED) FAXED TO [facility]. PATIENT DISCHARGED WITH TRANSPORT. PATIENT ABLE TO STAND PIVOT TO WHEELCHAIR. PATIENT STABLE AT TIME OF DISCHARGE.
== END 2021-07-22 16:16 | DRG 698 ==
LOC: ER 18:55 → MEDS 20:56 → ENPENDDIS 07-22 15:33 → MEDS 07-22 16:16
PROVIDERS: Emergency Medicine; Family Medicine; Internal Medicine; ADMIT Internal Medicine
PROC: 3E03329 Introduction of Other Anti-infective into Peripheral Vein, Percutaneous Approach (ICD-10-PCS; principal; 2021-07-18)
PROC: 5A09457 Assistance with Respiratory Ventilation, 24-96 Consecutive Hours, Continuous Positive Airway Pressure (ICD-10-PCS; 2021-07-18)
DX: T83.518A Infection and inflammatory reaction due to other urinary catheter, initial encounter (principal); A41.9 Sepsis, unspecified organism; G92.8 Other toxic encephalopathy; N39.0 Urinary tract infection, site not specified; Z68.42 Body mass index [BMI] 45.0-49.9, adult; N13.8 Other obstructive and reflux uropathy; Z20.822 Contact with and (suspected) exposure to COVID-19; Z66 Do not resuscitate; E66.01 Morbid (severe) obesity due to excess calories; B96.89 Other specified bacterial agents as the cause of diseases classified elsewhere; I95.9 Hypotension, unspecified; G20 Parkinson's disease; E78.5 Hyperlipidemia, unspecified; E11.51 Type 2 diabetes mellitus with diabetic peripheral angiopathy without gangrene; N18.30 Chronic kidney disease, stage 3 unspecified; E11.42 Type 2 diabetes mellitus with diabetic polyneuropathy; N40.1 Benign prostatic hyperplasia with lower urinary tract symptoms; R33.8 Other retention of urine; F02.80 Dementia in other diseases classified elsewhere, unspecified severity, without behavioral disturbance, psychotic disturbance, mood disturbance, and anxiety; I10 Essential (primary) hypertension; E11.22 Type 2 diabetes mellitus with diabetic chronic kidney disease; G47.33 Obstructive sleep apnea (adult) (pediatric); Z79.4 Long term (current) use of insulin; Z79.02 Long term (current) use of antithrombotics/antiplatelets; Z79.82 Long term (current) use of aspirin; Z79.899 Other long term (current) drug therapy; Z98.890 Other specified postprocedural states; Y84.6 Urinary catheterization as the cause of abnormal reaction of the patient, or of later complication, without mention of misadventure at the time of the procedure
CPT/HCPCS: 0241U; 36415; 51702; 70450; 70551; 71045; 80053; 80069; 81001; 82947; 85025; 87040; 87077; 87086; 87186; 92526; 92610; 93005; 93010; 94660; 94760; 94762; 96374; 97110; 97116; 97162; 97166; 97530; 97535; 99285-25; A9270; J0696; J0744; J1650; J2405; J7030; J7060

== ENCOUNTER 2021-09-20 20:08 | Inpatient (IN) | payer OTHER ==
[~2021-09-20] VITALS: Ht 180.3 cm; Wt 124.7 kg
[~2021-09-20 20:08] MED LIST changes: +CALCIUM 250-D1 EAC1 PO; -CALCIUM 250-D1 EACH PO; +CIPR500 PO; +DONE5 PO; +ESCI10 PO; +FURO20 PO; +NYSTATIN15 GM TOP; +SENNA LAXATIVE8.6 MG PO
[2021-09-20 20:41] LABS: BASOPHILS ABSOLUTE AUTO 0.04 K/mm3 (0.00-0.23); BASOPHILS PERCENT AUTO 0 % (0-2); EOSINOPHILS ABSOLUTE AUTO 0.26 K/mm3 (0.00-0.68); EOSINOPHILS PERCENT AUTO 2 % (0-6); Hematocrit 38.5 % (37.0-53.0); Hemoglobin 12.4 g/dL (13.5-17.5); IMMATURE GRAN ABSOLUTE AUTO 0.09 K/mm3 (0.00-0.10); IMMATURE GRAN PERCENT AUTO 1 % (0-1); LYMPHOCYTES ABSOLUTE AUTO 2.03 K/mm3 (0.84-5.20); LYMPHOCYTES PERCENT AUTO 11 % (21-46); MONOCYTES ABSOLUTE AUTO 1.26 K/mm3 (0.16-1.47); MONOCYTES PERCENT AUTO 7 % (4-13); Mean Corpuscular HGB 27.9 pg (26.0-34.0); Mean Corpuscular HGB Conc 32.2 g/dL (31.5-36.5); Mean Corpuscular Volume 87 fL (80-100); Mean Platelet Volume 9.2 fL (9.1-12.4); NEUTROPHILS ABSOLUTE AUTO 14.23 K/mm3 (1.96-9.15); NEUTROPHILS PERCENT AUTO 80 % (41-73); Platelet Count 273 K/mm3 (150-400); RDW Coefficient Variation 16.5 % (11.7-14.2); RDW Standard Deviation 51.6 fL (35.1-46.3); Red Blood Cell Count 4.44 M/mm3 (4.30-5.90); White Blood Cell Count 17.91 K/mm3 (4.00-11.30)
[2021-09-20 21:02] LABS: Albumin, Blood 3.4 g/dL (3.4-5.0); Albumin/Globulin Ratio 0.7 (0.8-1.8); Bilirubin, Total 0.3 mg/dL (0.1-1.0); Bun/Creatinine Ratio 16.8 (12.0-20.0); Calcium, Blood 9.4 mg/dL (8.5-10.1); Creatinine, Blood 1.43 mg/dL (0.60-1.20); Globulin, Blood 4.7 g/dL (2.2-4.0); Potassium, Blood 4.6 mmol/L (3.5-5.5); Total Protein, Blood 8.1 g/dL (6.4-8.2)
[2021-09-20 23:12] LABS: Source, Urine Clean Catch
[2021-09-20 23:15] LABS: Bilirubin, Urine Neg (Neg); Blood, Urine Neg (Neg); Glucose Qualitative, Urine Neg (Neg); Ketones, Urine Neg (Neg); Leukocyte Esterase, Urine 1+ (Neg); Nitrite, Urine Neg (Neg); Protein, Urine 2+ (Neg); Urobilinogen, Urine NORM (Normal)
[2021-09-20 23:33] LABS: Appearance, Urine Hazy (Clear); Bacteria Many /hpf; Color, Urine Pale Yellow (P-Yellow); Red Blood Cells, Urine Not Seen /hpf (0-2); Squamous Epithelial Cells Not Seen /hpf (Few); White Blood Cells, Urine 25-50 /hpf (0-5)
[2021-09-20 23:37] LABS: Influenza A, PCR NEGATIVE (NEGATIVE); Influenza B, PCR NEGATIVE (NEGATIVE); Resp Syncytial Virus, PCR NEGATIVE (NEGATIVE); SARS-Cov-2 (COVID-19) PCR, MMC NEGATIVE (NEGATIVE)
--- NOTE | 2021-09-21 02:57 | NUR ---
PT ADMITTED FROM ER TO ROOM 306. PT TRANSFERRED BY [facility] @0045 AM A&OX4. REPORT RECEIVED FROM BOOT TRIMMER, CORNELIO. WILL CONTINUE TO MONITOR.
--- NOTE | 2021-09-21 04:23 | NUR ---
A&OX4. V/S WNL. ADA DIET. ACUCHECKS AC&HS. IV TO L) AC. STRAIGHT CATH IN ER: 1200 ML OF URINE. PILLS WHOLE WITH WATER. BEDREST. BASELINE-AMBULATES WITH WAKER. INCONTINENT OF URINE. BRIEFS IN PLACE. NO BM THIS SHIFT. PRN GIVEN FOR GENERALIZED PAIN. WILL CONTINUE TO MONITOR.
[2021-09-21 05:41] LABS: BASOPHILS ABSOLUTE AUTO 0.06 K/mm3 (0.00-0.23); BASOPHILS PERCENT AUTO 0 % (0-2); EOSINOPHILS ABSOLUTE AUTO 0.29 K/mm3 (0.00-0.68); EOSINOPHILS PERCENT AUTO 2 % (0-6); IMMATURE GRAN ABSOLUTE AUTO 0.05 K/mm3 (0.00-0.10); IMMATURE GRAN PERCENT AUTO 0 % (0-1); LYMPHOCYTES ABSOLUTE AUTO 3.79 K/mm3 (0.84-5.20); LYMPHOCYTES PERCENT AUTO 23 % (21-46); MONOCYTES ABSOLUTE AUTO 1.16 K/mm3 (0.16-1.47); MONOCYTES PERCENT AUTO 7 % (4-13); Mean Corpuscular HGB 27.4 pg (26.0-34.0); Mean Corpuscular HGB Conc 31.4 g/dL (31.5-36.5); Mean Corpuscular Volume 87 fL (80-100); Mean Platelet Volume 9.4 fL (9.1-12.4); NEUTROPHILS ABSOLUTE AUTO 10.85 K/mm3 (1.96-9.15); NEUTROPHILS PERCENT AUTO 67 % (41-73); Platelet Count 254 K/mm3 (150-400); RDW Coefficient Variation 16.4 % (11.7-14.2); RDW Standard Deviation 52.2 fL (35.1-46.3); Red Blood Cell Count 4.01 M/mm3 (4.30-5.90)
--- NOTE | 2021-09-21 05:47 | NUR ---
@0515, PT BLADDER-SCANNED: 827 ML. AN ORDER FOR AN INDWELLING CATHETER AT [address] WESTFALL FOR URINE RETENTION. @ 0545, IFC INSERTED, 16 FZ. NO COMPLICATION. YELLOW URINE WITH SEDIMENT COMING OUT INTO OCONNOR BAG.
[2021-09-21 06:07] LABS: Bun/Creatinine Ratio 16.5 (12.0-20.0); Calcium, Blood 8.7 mg/dL (8.5-10.1); Creatinine, Blood 1.27 mg/dL (0.60-1.20); Potassium, Blood 3.9 mmol/L (3.5-5.5)
--- NOTE | 2021-09-21 17:01 | NUR ---
SHIFT SUMMARY- PT A/PX4, SBA WITH FWW UP TO CHAIR AND BATHROOM. PT DENIES ANY COMPLAINTS T/O THE DAY. LS CLEAR, ON RA. HRR, JOSE IN THE 50'S. OCONNOR PATENT AND DRAINING YELLOW URINE, GOOD URINE OUTPUT TODAY. PT REPORTS AT BASELINE HE STRAIGHT CATH'S 4 TIMES A DAY. NO OTHER ACUTE CHANGES THIS SHIFT. POSSIBLE D/C HOME TOMRROW.
--- NOTE | 2021-09-22 06:11 | NUR ---
SHIFT SUMMARY: A/OX3-4, STANDBY 1 PERSON ASSIST STAND AND PIVOT. NO REPORTS OF PAIN OR DISCOMFORT THROUGHOUT THE NIGHT. PRN HYDRALAZINE ORDERS PLACED DUE TO HYPERTENSION THIS SHIFT- RESOLVED POST ADMINISTRATION OF MEDICATIONS. PT CALLING APPROPRIATELY. OCONNOR CATHETER IN PLACE DRAINING WELL ADEQUATE OUTPUT. BED ALARM REMAINS ACTIVATED, BED IN LOW POSITION, CALL KIRBY AND BELONGINGS IN REACH.
[2021-09-22 08:28] LABS: BASOPHILS ABSOLUTE AUTO 0.04 K/mm3 (0.00-0.23); BASOPHILS PERCENT AUTO 0 % (0-2); EOSINOPHILS ABSOLUTE AUTO 0.47 K/mm3 (0.00-0.68); EOSINOPHILS PERCENT AUTO 5 % (0-6); Hematocrit 37.8 % (37.0-53.0); Hemoglobin 12.2 g/dL (13.5-17.5); IMMATURE GRAN ABSOLUTE AUTO 0.03 K/mm3 (0.00-0.10); IMMATURE GRAN PERCENT AUTO 0 % (0-1); LYMPHOCYTES ABSOLUTE AUTO 2.83 K/mm3 (0.84-5.20); LYMPHOCYTES PERCENT AUTO 27 % (21-46); MONOCYTES ABSOLUTE AUTO 0.84 K/mm3 (0.16-1.47); MONOCYTES PERCENT AUTO 8 % (4-13); Mean Corpuscular HGB 27.6 pg (26.0-34.0); Mean Corpuscular HGB Conc 32.3 g/dL (31.5-36.5); Mean Corpuscular Volume 86 fL (80-100); Mean Platelet Volume 9.2 fL (9.1-12.4); NEUTROPHILS PERCENT AUTO 60 % (41-73); Platelet Count 252 K/mm3 (150-400); RDW Coefficient Variation 16.4 % (11.7-14.2); RDW Standard Deviation 51.3 fL (35.1-46.3); Red Blood Cell Count 4.42 M/mm3 (4.30-5.90); White Blood Cell Count 10.51 K/mm3 (4.00-11.30)
[2021-09-22] MEDS ORDERED: VISBIOME 112.51 EACH PO (10:48)
[2021-09-22] MEDS ORDERED: CEPH500 PO (10:49)
--- NOTE | 2021-09-22 14:00 | NUR ---
DISCHARGE INSTRUCTIONS REVIEWED WITH PT, IV DC'D INTACT. RX FAXED TO [facility] AND SPOUSE TO [facility] [employer] AND [facility] PT. ANASTASIA DC'D INTACT. PT TO CALL TO SCHEDULE APPT WITH PCP. WILL GO OVER D/C ORDERS WITH SPOUSE ONCE SHE GETS HERE. PT STATES HE FEELS WELL AND READY TO GO HOME. NO CONCERNS AT THIS TIME.
--- NOTE | 2021-09-22 14:40 | NUR ---
DISCHARGE INSTRUCTIONS REVIEWED WITH SPOUSE. PT DC'D HOME AT 1437 ESCORTED OUT VIA W/C TO D/CD HOME WITH SPOUSE.
== END 2021-09-22 14:38 | disposition home or self-care (01) | DRG 698 ==
LOC: ER 20:08 → MEDS 09-21 00:41
PROVIDERS: Internal Medicine; Student in an Organized Health Care Education/Training Program; ADMIT Family Medicine
DX: T83.511A Infection and inflammatory reaction due to indwelling urethral catheter, initial encounter (principal); A41.4 Sepsis due to anaerobes; R65.20 Severe sepsis without septic shock; N17.9 Acute kidney failure, unspecified; N39.0 Urinary tract infection, site not specified; N40.0 Benign prostatic hyperplasia without lower urinary tract symptoms; Z20.822 Contact with and (suspected) exposure to COVID-19; D63.1 Anemia in chronic kidney disease; N40.1 Benign prostatic hyperplasia with lower urinary tract symptoms; R33.8 Other retention of urine; I12.9 Hypertensive chronic kidney disease with stage 1 through stage 4 chronic kidney disease, or unspecified chronic kidney disease; E11.22 Type 2 diabetes mellitus with diabetic chronic kidney disease; N18.30 Chronic kidney disease, stage 3 unspecified; G20 Parkinson's disease; F02.80 Dementia in other diseases classified elsewhere, unspecified severity, without behavioral disturbance, psychotic disturbance, mood disturbance, and anxiety; K21.9 Gastro-esophageal reflux disease without esophagitis; E11.40 Type 2 diabetes mellitus with diabetic neuropathy, unspecified; Z86.16 Personal history of COVID-19; Z98.890 Other specified postprocedural states; Z79.4 Long term (current) use of insulin; Z79.82 Long term (current) use of aspirin; Z79.899 Other long term (current) drug therapy; Y84.6 Urinary catheterization as the cause of abnormal reaction of the patient, or of later complication, without mention of misadventure at the time of the procedure
CPT/HCPCS: 0241U; 36415; 51701; 71045; 80048; 80053; 81001; 82947; 83605; 85025; 87040; 87077; 87086; 87186; 93005; 93010; 96374; 99285-25; A9270; J0696; J1650; J1815; J2405; J7120

== ENCOUNTER 2021-12-06 00:43 | Inpatient (IN) | payer OTHER ==
[~2021-12-06] VITALS: Ht 182.9 cm; Wt 124.0 kg
[~2021-12-06 00:43] MED LIST changes: +CEPH500 PO
[2021-12-06 01:05] LABS: Source, Urine Clean Catch
[2021-12-06 01:07] LABS: Bilirubin, Urine Neg (Neg); Blood, Urine 1+ (Neg); Glucose Qualitative, Urine Neg (Neg); Ketones, Urine Neg (Neg); Leukocyte Esterase, Urine 2+ (Neg); Nitrite, Urine Neg (Neg); Protein, Urine 2+ (Neg); Urobilinogen, Urine NORM (Normal)
[2021-12-06 01:07] LABS: BASOPHILS ABSOLUTE AUTO 0.03 K/mm3 (0.00-0.23); BASOPHILS PERCENT AUTO 0 % (0-2); EOSINOPHILS ABSOLUTE AUTO 0.27 K/mm3 (0.00-0.68); EOSINOPHILS PERCENT AUTO 2 % (0-6); Hematocrit 38.4 % (37.0-53.0); Hemoglobin 12.1 g/dL (13.5-17.5); IMMATURE GRAN ABSOLUTE AUTO 0.09 K/mm3 (0.00-0.10); IMMATURE GRAN PERCENT AUTO 1 % (0-1); LYMPHOCYTES ABSOLUTE AUTO 1.44 K/mm3 (0.84-5.20); LYMPHOCYTES PERCENT AUTO 9 % (21-46); MONOCYTES ABSOLUTE AUTO 1.15 K/mm3 (0.16-1.47); MONOCYTES PERCENT AUTO 7 % (4-13); Mean Corpuscular HGB 27.7 pg (26.0-34.0); Mean Corpuscular HGB Conc 31.5 g/dL (31.5-36.5); Mean Corpuscular Volume 88 fL (80-100); Mean Platelet Volume 9.2 fL (9.1-12.4); NEUTROPHILS ABSOLUTE AUTO 12.96 K/mm3 (1.96-9.15); NEUTROPHILS PERCENT AUTO 81 % (41-73); Platelet Count 241 K/mm3 (150-400); RDW Coefficient Variation 14.6 % (11.7-14.2); RDW Standard Deviation 47.3 fL (35.1-46.3); Red Blood Cell Count 4.37 M/mm3 (4.30-5.90); White Blood Cell Count 15.94 K/mm3 (4.00-11.30)
[2021-12-06 01:10] LABS: Appearance, Urine Hazy (Clear); Color, Urine Pale Yellow (P-Yellow)
[2021-12-06 01:13] LABS: Bacteria Many /hpf; Red Blood Cells, Urine 0-2 /hpf (0-2); Squamous Epithelial Cells Rare /hpf (Few); White Blood Cells, Urine TNTC /hpf (0-5)
[2021-12-06 01:19] LABS: Albumin, Blood 3.3 g/dL (3.4-5.0); Albumin/Globulin Ratio 0.8 (0.8-1.8); Bilirubin, Total 0.3 mg/dL (0.1-1.0); Calcium, Blood 8.7 mg/dL (8.5-10.1); Creatinine, Blood 1.5 mg/dL (0.60-1.20); Globulin, Blood 4.3 g/dL (2.2-4.0); Potassium, Blood 4.2 mmol/L (3.5-5.5); Total Protein, Blood 7.6 g/dL (6.4-8.2)
[2021-12-06 01:23] LABS: U Amphetamine Screen Not Detected; U Barbituate Screen Not Detected; U Benzodiazapine Screen Not Detected; U Buprenorphine Screen Not Detected; U Cannabinoids Screen Not Detected; U Cocaine Screen Not Detected; U Methadone Screen Not Detected; U Methamphetamine Screen Not Detected; U Opiates Screen Not Detected; U Oxycodone Screen Not Detected; U Phencyclidine Screen Not Detected; U Propoxyphene Screen Not Detected
[2021-12-06 01:47] LABS: Influenza A, PCR NEGATIVE (NEGATIVE); Influenza B, PCR NEGATIVE (NEGATIVE); Resp Syncytial Virus, PCR NEGATIVE (NEGATIVE); SARS-Cov-2 (COVID-19) PCR, MMC NEGATIVE (NEGATIVE)
--- NOTE | 2021-12-06 03:51 | NUR ---
PT ARRIVED FROM ED TO ROOM 340 AT 0351. PT IS AX0 X2 AT THIS TIME. PT IS CONFUSED OF TIME AND PLACE. PT STATES HE DOESNT KNOW ANY OF HIS HISTORY NOR WHAT MEDICATION HE TAKES. PT STATES IS IN CHARGE OF MANAGING HIS MEDICATIONS AND MEDICAL RECORDS. PT IS VERY SOFT SPOKEN, SLOW TO RESPOND, AT THIS TIME PT APPEARS TO BE IN NO APPARENT DISTRESS. PT RECIEVING IV INFUSUION OF NS NOW. OCONNOR INSERTION TO FOLLOW.
--- NOTE | 2021-12-06 03:53 | NUR ---
UPON ADMISSION THE PT'S SKIN HAD NO EVIDENCE OF REDDENING OR IRRITATION PRESENT. BOTH OF PT'S BIG TOE TOENAILS ARE MISSING.
--- NOTE | 2021-12-06 06:01 | NUR ---
SHIFT SUMMARY: PT ARRIVED TO FLOOR AT 0351. UPON ARRIVAL PT WAS AXO X2. PATIENT IS ORIENTATED TO PERSON AND SELF. PT HAS DEMENTIA AND PARKINSONS. PT ANSWERS QUESTIONS BUT IS SOMETIMES CONFUSED AND OFTEN DIRECTS THE QUESTIONS TO HIS WHO IS NOT PRESENT. PT IS ON RA. PT DENIES ANY SOB OR PAIN AT THIS TIME. PT IS CURRENLTY A 2 PERSON ASSIST/BEDREST. PT HAS A SLIGHT TREMOR PRESENT BRANDILEY IN RELATION TO HIS DIAGNOSIS OF PARKINSONS. A OCONNOR CATHETER WAS INSERTED AT 0525 THIS AM. PT IS CURRENTLY RESTING IN BED WHILE RECIEVING AN INFUSION OF NS. BED IS IN THE LOWEST POSITION AND CALL LIGHT IS IN HAND.
[2021-12-06 07:30] LABS: BASOPHILS ABSOLUTE AUTO 0.03 K/mm3 (0.00-0.23); BASOPHILS PERCENT AUTO 0 % (0-2); EOSINOPHILS ABSOLUTE AUTO 0.14 K/mm3 (0.00-0.68); EOSINOPHILS PERCENT AUTO 1 % (0-6); Hematocrit 36.4 % (37.0-53.0); Hemoglobin 11.7 g/dL (13.5-17.5); IMMATURE GRAN ABSOLUTE AUTO 0.06 K/mm3 (0.00-0.10); IMMATURE GRAN PERCENT AUTO 0 % (0-1); LYMPHOCYTES PERCENT AUTO 12 % (21-46); MONOCYTES ABSOLUTE AUTO 1.14 K/mm3 (0.16-1.47); MONOCYTES PERCENT AUTO 7 % (4-13); Mean Corpuscular HGB 28.3 pg (26.0-34.0); Mean Corpuscular HGB Conc 32.1 g/dL (31.5-36.5); Mean Corpuscular Volume 88 fL (80-100); NEUTROPHILS ABSOLUTE AUTO 13.57 K/mm3 (1.96-9.15); NEUTROPHILS PERCENT AUTO 80 % (41-73); Platelet Count 223 K/mm3 (150-400); RDW Coefficient Variation 14.8 % (11.7-14.2); RDW Standard Deviation 47.8 fL (35.1-46.3); Red Blood Cell Count 4.14 M/mm3 (4.30-5.90); White Blood Cell Count 16.94 K/mm3 (4.00-11.30)
[2021-12-06 07:53] LABS: Albumin/Globulin Ratio 0.7 (0.8-1.8); Bilirubin, Total 0.3 mg/dL (0.1-1.0); Bun/Creatinine Ratio 18.8 (12.0-20.0); Calcium, Blood 8.6 mg/dL (8.5-10.1); Creatinine, Blood 1.6 mg/dL (0.60-1.20); Globulin, Blood 4.2 g/dL (2.2-4.0); Potassium, Blood 4.1 mmol/L (3.5-5.5); Total Protein, Blood 7.2 g/dL (6.4-8.2)
[2021-12-06] MEDS ORDERED: MELA3 PO (08:17)
[2021-12-06] MEDS ORDERED: CEFD300 PO (14:53)
[2021-12-06] MEDS ORDERED: VISBIOME 112.51 EACH PO (14:54)
--- NOTE | 2021-12-06 15:17 | NUR ---
DISCHARGE NOTE PT WAS ALERT AND ORIENTED UPON DISCHARGE WITH HIS AT THE BS. SHE ARRIVED TO TAKE HIM HOME. PT'S IV AND OCONNOR CATHETER WERE REMOVED, BOTH PATENT AND WNL. PT WAS TRANSPORTED TO THE EXIT BY WHEELCHAIR. EDUCATION WAS PROVIDED ABOUT MEDICATIONS AND PROVIDER FOLLOW-UP. APPROPRIATE DOCUMENTATION WAS GIVEN TO THE PT.
== END 2021-12-06 15:31 | disposition home or self-care (01) | DRG 871 ==
LOC: ER 00:43 → MEDS 02:57
PROVIDERS: Family Medicine; Student in an Organized Health Care Education/Training Program; ADMIT Internal Medicine
DX: A41.59 Other Gram-negative sepsis (principal); G92.9 Unspecified toxic encephalopathy; N17.9 Acute kidney failure, unspecified; N39.0 Urinary tract infection, site not specified; G20 Parkinson's disease; E11.22 Type 2 diabetes mellitus with diabetic chronic kidney disease; N18.30 Chronic kidney disease, stage 3 unspecified; N40.0 Benign prostatic hyperplasia without lower urinary tract symptoms; K21.9 Gastro-esophageal reflux disease without esophagitis; I12.9 Hypertensive chronic kidney disease with stage 1 through stage 4 chronic kidney disease, or unspecified chronic kidney disease; E11.40 Type 2 diabetes mellitus with diabetic neuropathy, unspecified; F03.90 Unspecified dementia, unspecified severity, without behavioral disturbance, psychotic disturbance, mood disturbance, and anxiety; Z86.16 Personal history of COVID-19; Z98.890 Other specified postprocedural states; Z79.82 Long term (current) use of aspirin; Z79.4 Long term (current) use of insulin; Z79.899 Other long term (current) drug therapy; Z79.84 Long term (current) use of oral hypoglycemic drugs; Z79.02 Long term (current) use of antithrombotics/antiplatelets
CPT/HCPCS: 0241U; 36415; 51701; 80053; 81001; 82947; 83605; 85025; 87040; 87077; 87086; 87186; 93005; 93010; 96374-59; 99285-25; A9270; J0696; J1650; J7030

== ENCOUNTER 2022-01-17 08:59 | Emergency (ER) | payer OTHER ==
[~2022-01-17] VITALS: Ht 180.3 cm; Wt 122.5 kg
[~2022-01-17 08:59] MED LIST changes: +CEFD300 PO; +MELA3 PO
[2022-01-17 09:35] LABS: BASOPHILS ABSOLUTE AUTO 0.04 K/mm3 (0.00-0.23); BASOPHILS PERCENT AUTO 0 % (0-2); EOSINOPHILS ABSOLUTE AUTO 0.38 K/mm3 (0.00-0.68); EOSINOPHILS PERCENT AUTO 4 % (0-6); Hematocrit 39.3 % (37.0-53.0); Hemoglobin 12.9 g/dL (13.5-17.5); IMMATURE GRAN ABSOLUTE AUTO 0.03 K/mm3 (0.00-0.10); IMMATURE GRAN PERCENT AUTO 0 % (0-1); LYMPHOCYTES ABSOLUTE AUTO 2.19 K/mm3 (0.84-5.20); LYMPHOCYTES PERCENT AUTO 24 % (21-46); MONOCYTES ABSOLUTE AUTO 0.96 K/mm3 (0.16-1.47); MONOCYTES PERCENT AUTO 10 % (4-13); Mean Corpuscular HGB 28.2 pg (26.0-34.0); Mean Corpuscular HGB Conc 32.8 g/dL (31.5-36.5); Mean Corpuscular Volume 86 fL (80-100); Mean Platelet Volume 8.7 fL (9.1-12.4); NEUTROPHILS ABSOLUTE AUTO 5.64 K/mm3 (1.96-9.15); NEUTROPHILS PERCENT AUTO 61 % (41-73); Platelet Count 275 K/mm3 (150-400); RDW Coefficient Variation 15.1 % (11.7-14.2); RDW Standard Deviation 47.6 fL (35.1-46.3); Red Blood Cell Count 4.58 M/mm3 (4.30-5.90); White Blood Cell Count 9.24 K/mm3 (4.00-11.30)
[2022-01-17 09:54] LABS: Albumin, Blood 3.3 g/dL (3.4-5.0); Albumin/Globulin Ratio 0.8 (0.8-1.8); Bilirubin, Total 0.2 mg/dL (0.1-1.0); Bun/Creatinine Ratio 17.4 (12.0-20.0); Calcium, Blood 8.8 mg/dL (8.5-10.1); Creatinine, Blood 1.49 mg/dL (0.60-1.20); Globulin, Blood 4.2 g/dL (2.2-4.0); Potassium, Blood 4.3 mmol/L (3.5-5.5); Total Protein, Blood 7.5 g/dL (6.4-8.2)
[2022-01-17 10:51] LABS: Influenza B, PCR NEGATIVE (NEGATIVE); Resp Syncytial Virus, PCR NEGATIVE (NEGATIVE); SARS-Cov-2 (COVID-19) PCR, MMC NEGATIVE (NEGATIVE)
[2022-01-17 10:53] LABS: Influenza A, PCR POSITIVE (NEGATIVE)
[2022-01-17] MEDS ORDERED: OSEL75CA PO (12:26)
[2022-01-17] MEDS ORDERED: ALBU90OI INH (12:27)
== END 2022-01-17 15:19 | disposition home or self-care (01) ==
LOC: ER 08:59
PROVIDERS: Physician Assistant
DX: J10.1 Influenza due to other identified influenza virus with other respiratory manifestations (principal); F03.90 Unspecified dementia, unspecified severity, without behavioral disturbance, psychotic disturbance, mood disturbance, and anxiety; E11.9 Type 2 diabetes mellitus without complications; Z20.822 Contact with and (suspected) exposure to COVID-19; Z79.899 Other long term (current) drug therapy; Z79.82 Long term (current) use of aspirin; Z79.4 Long term (current) use of insulin
CPT/HCPCS: 0241U; 36415; 71046; 80053; 83880; 84484; 85025; 93005; 93010

== ENCOUNTER 2022-06-28 19:47 | Inpatient (IN) | payer OTHER ==
[~2022-06-28] VITALS: Ht 182.9 cm; Wt 118.3 kg
[~2022-06-28 19:47] MED LIST changes: +ALBU90OI INH; +OSEL75CA PO
[2022-06-28 20:03] LABS: BASOPHILS ABSOLUTE AUTO 0.05 K/mm3 (0.00-0.23); BASOPHILS PERCENT AUTO 0 % (0-2); EOSINOPHILS ABSOLUTE AUTO 0.16 K/mm3 (0.00-0.68); EOSINOPHILS PERCENT AUTO 1 % (0-6); Hematocrit 40.2 % (37.0-53.0); Hemoglobin 12.9 g/dL (13.5-17.5); IMMATURE GRAN ABSOLUTE AUTO 0.07 K/mm3 (0.00-0.10); IMMATURE GRAN PERCENT AUTO 0 % (0-1); LYMPHOCYTES ABSOLUTE AUTO 1.28 K/mm3 (0.84-5.20); LYMPHOCYTES PERCENT AUTO 8 % (21-46); MONOCYTES ABSOLUTE AUTO 1.22 K/mm3 (0.16-1.47); MONOCYTES PERCENT AUTO 7 % (4-13); Mean Corpuscular HGB 28.4 pg (26.0-34.0); Mean Corpuscular HGB Conc 32.1 g/dL (31.5-36.5); Mean Corpuscular Volume 89 fL (80-100); Mean Platelet Volume 9.3 fL (9.1-12.4); NEUTROPHILS ABSOLUTE AUTO 13.93 K/mm3 (1.96-9.15); NEUTROPHILS PERCENT AUTO 83 % (41-73); Platelet Count 268 K/mm3 (150-400); RDW Coefficient Variation 14.6 % (11.7-14.2); RDW Standard Deviation 47.3 fL (35.1-46.3); Red Blood Cell Count 4.54 M/mm3 (4.30-5.90); White Blood Cell Count 16.71 K/mm3 (4.00-11.30)
[2022-06-28 20:17] LABS: International Normalized Ratio 0.97; Prothrombin Time Results 10.2 Sec (9.7-11.5)
[2022-06-28 20:25] LABS: Albumin, Blood 3.4 g/dL (3.4-5.0); Albumin/Globulin Ratio 0.7 (0.8-1.8); Bilirubin, Total 0.4 mg/dL (0.1-1.0); Bun/Creatinine Ratio 24.4 (12.0-20.0); Calcium, Blood 8.6 mg/dL (8.5-10.1); Creatinine, Blood 1.68 mg/dL (0.60-1.20); Globulin, Blood 4.6 g/dL (2.2-4.0); Magnesium, Blood 1.9 mg/dL (1.6-2.4); Potassium, Blood 4.7 mmol/L (3.5-5.5)
[2022-06-28 20:25] LABS: Calcium, Ionized (POC) 1.15 mmol/L (1.10-1.46); Chloride (POC) 101 mmol/L (98-108); Creatinine (POC) 2.1 mg/dL (0.8-1.3); Glucose (ISTAT POC) 194 mg/dL (70-99); Hemoglobin (POC) 13.6 g/dL (13.5-17.5); Potassium (POC) 4.8 mmol/L (3.5-5.5); Sodium (POC) 137 mmol/L (135-148); Total CO2 (POC) 24 mmol/L (21-32)
[2022-06-28 22:44] LABS: Source, Urine Clean Catch
[2022-06-28 22:58] LABS: Bilirubin, Urine Neg (Neg); Blood, Urine 3+ (Neg); Glucose Qualitative, Urine Neg (Neg); Ketones, Urine Neg (Neg); Leukocyte Esterase, Urine Neg (Neg); Nitrite, Urine Pos (Neg); Protein, Urine 2+ (Neg); Specific Gravity, Urine 1.015 (1.003-1.022); Urobilinogen, Urine NORM (Normal)
[2022-06-28 23:13] LABS: Appearance, Urine Hazy (Clear); Color, Urine Yellow (P-Yellow)
[2022-06-28 23:17] LABS: Bacteria Many /hpf; Red Blood Cells, Urine 0-2 /hpf (0-2); Squamous Epithelial Cells Rare /hpf (Few)
[2022-06-29 04:40] LABS: BASOPHILS ABSOLUTE AUTO 0.05 K/mm3 (0.00-0.23); BASOPHILS PERCENT AUTO 0 % (0-2); EOSINOPHILS ABSOLUTE AUTO 0.01 K/mm3 (0.00-0.68); EOSINOPHILS PERCENT AUTO 0 % (0-6); Hemoglobin 12.6 g/dL (13.5-17.5); IMMATURE GRAN ABSOLUTE AUTO 0.18 K/mm3 (0.00-0.10); IMMATURE GRAN PERCENT AUTO 1 % (0-1); LYMPHOCYTES PERCENT AUTO 8 % (21-46); MONOCYTES ABSOLUTE AUTO 1.68 K/mm3 (0.16-1.47); MONOCYTES PERCENT AUTO 9 % (4-13); Mean Corpuscular HGB 28.9 pg (26.0-34.0); Mean Corpuscular HGB Conc 33.2 g/dL (31.5-36.5); Mean Corpuscular Volume 87 fL (80-100); Mean Platelet Volume 9.1 fL (9.1-12.4); NEUTROPHILS ABSOLUTE AUTO 15.77 K/mm3 (1.96-9.15); NEUTROPHILS PERCENT AUTO 82 % (41-73); Platelet Count 230 K/mm3 (150-400); RDW Coefficient Variation 14.8 % (11.7-14.2); RDW Standard Deviation 47.3 fL (35.1-46.3); Red Blood Cell Count 4.36 M/mm3 (4.30-5.90); White Blood Cell Count 19.29 K/mm3 (4.00-11.30)
--- NOTE | 2022-06-29 04:50 | NUR ---
INBOUND SALES REPRESENTATIVE SUMMARY PT WAS A NEW ADMIT THIS SHIFT, CURRENTLY EXPERIENCING EXPRESSIVE APHASIA SO HISTORY WAS DIFFICULT TO OBTAIN. PT MAY NOD, BLINK, OR NOT RESPOND AT ALL TO QUESTIONS. HIS WAS AT THE BS IN THE ED AND MAY BE ABLE TO PROVIDER MORE INFORMATION IN THE MORNING. PT IS CURRENTLY NPO AND A Q6 CBG. HE IS ON 2L NC AND DOES NOT USE O2 AT HOME. PT WAS GIVEN LOVENOX UPON ARRIVAL SO THE AM DOSE ON 06/29 AT 0900 SHOULD BE HELD PER PHARMACY AND RESUMED ON 06/30. PER HIS IN THE ED, HE STRAIGHT CATHS HIMSELF 4X'S DAILY AT HOME. HE HAS NO C/O P/N/V/SOB/CP AT HOME. CALL LIGHT IS WITHIN REACH, BED IN THE LOWEST POSITION. WILL REPORT TO ONCOMING NURSE.
[2022-06-29 04:57] LABS: Albumin/Globulin Ratio 0.7 (0.8-1.8); Bilirubin, Total 0.5 mg/dL (0.1-1.0); Bun/Creatinine Ratio 24.2 (12.0-20.0); Calcium, Blood 8.5 mg/dL (8.5-10.1); Creatinine, Blood 1.53 mg/dL (0.60-1.20); Globulin, Blood 4.2 g/dL (2.2-4.0); Total Protein, Blood 7.2 g/dL (6.4-8.2)
[2022-06-29 08:05] VITALS: BP 154/63
[2022-06-29 09:37] LABS: Source, Urine Foley catheter
[2022-06-29 09:43] LABS: Bilirubin, Urine Neg (Neg); Blood, Urine 3+ (Neg); Glucose Qualitative, Urine Neg (Neg); Ketones, Urine Neg (Neg); Leukocyte Esterase, Urine 1+ (Neg); Nitrite, Urine Neg (Neg); Protein, Urine 3+ (Neg); Urobilinogen, Urine NORM (Normal)
[2022-06-29 09:49] LABS: Appearance, Urine Hazy (Clear); Color, Urine Yellow (P-Yellow)
[2022-06-29 09:51] LABS: Bacteria Few /hpf; Red Blood Cells, Urine 0-2 /hpf (0-2); Squamous Epithelial Cells Few /hpf (Few); White Blood Cells, Urine 25-50 /hpf (0-5)
[2022-06-29 15:17] VITALS: BP 139/54
[2022-06-29 19:37] VITALS: BP 149/53
[2022-06-30 03:44] VITALS: BP 136/66
[2022-06-30 04:57] LABS: Hematocrit 34.9 % (37.0-53.0); Hemoglobin 11.3 g/dL (13.5-17.5); Mean Corpuscular HGB 28.8 pg (26.0-34.0); Mean Corpuscular HGB Conc 32.4 g/dL (31.5-36.5); Mean Corpuscular Volume 89 fL (80-100); Mean Platelet Volume 9.1 fL (9.1-12.4); Platelet Count 211 K/mm3 (150-400); RDW Standard Deviation 49.1 fL (35.1-46.3); Red Blood Cell Count 3.93 M/mm3 (4.30-5.90); White Blood Cell Count 16.49 K/mm3 (4.00-11.30)
[2022-06-30 05:37] LABS: Albumin, Blood 2.6 g/dL (3.4-5.0); Anion Gap 6 mmol/L (6-16); Blood Urea Nitrogen 37 mg/dL (8-24); Bun/Creatinine Ratio 22.2 (12.0-20.0); CO2, Blood 22 mmol/L (21-32); Calcium, Blood 8.6 mg/dL (8.5-10.1); Chloride, Blood 108 mmol/L (98-108); Creatinine, Blood 1.67 mg/dL (0.60-1.20); Glomerular Filtration Rate 43 (60-); Glucose, Blood 166 mg/dL (70-99); Phosphorus, Blood 2.1 mg/dL (2.5-4.9); Potassium, Blood 3.8 mmol/L (3.5-5.5); Sodium, Blood 136 mmol/L (136-145)
[2022-06-30 07:51] VITALS: BP 153/51
--- NOTE | 2022-06-30 13:02 | NUR ---
AM ASSESSMENT I WAS PRESENT DURING AND AGREE WITH THE VELVET STEAMER MARCIAL'S AM ASSESSMENT AND DOCUMENTATION ON THIS PT
[2022-06-30 16:02] VITALS: BP 157/62
--- NOTE | 2022-06-30 18:37 | NUR ---
KHADAR HAD A GOOD DAY TODAY, HE SLEPT THROUGH MUCH OF THE EARLY AFTERNOON WITH HIS C-PAP ON, AND AMBULATED TO THE BATHROOM MULTIPLE TIMES, HIS CAME TO VISIT HIM AND IS STILL WITH THE PATIENT AT THE TIME OF THIS ENTRY. THE PATIENT COMMENTED ON HAVING EAR PAIN GOING BACK 6 WEEKS. PATIENT WAS PLEASANT AND COMPLIANT ALL SHIFT.
--- NOTE | 2022-06-30 18:40 | NUR ---
PT IS A/OX3, PLEASANT AND COOPERATIVE, SLOW TO RESPOND AT TIMES. THE PT APPEARS TO BE BREATHING EASILY ON RA AT THIS TIME. PT IS UP WITH MINIMAL ASSIST TO THE CHAIR AND TO THE BATHROOM. THE PT AMBULATED OUT INTO THE [facility] TODAY WITH THE PHYSICAL THERAPIST. THIS AFTERNOON WHEN GETTING UP FROM THE BED THE PT REPORTED FEELING LIGHT HEADED, HOWEVER WAS ABLE TO RECOVER SHORTLY AND ABLE TO STAND. CALL LIGHT IN REACH, WILL CONTINUE TO MONITOR AND ASSESS FOR CHANGES
[2022-06-30 20:18] VITALS: BP 150/54
[2022-07-01 04:32] VITALS: BP 159/71
[2022-07-01 04:55] LABS: Hematocrit 36.4 % (37.0-53.0); Hemoglobin 11.7 g/dL (13.5-17.5); Mean Corpuscular HGB 28.3 pg (26.0-34.0); Mean Corpuscular HGB Conc 32.1 g/dL (31.5-36.5); Mean Corpuscular Volume 88 fL (80-100); Mean Platelet Volume 9.3 fL (9.1-12.4); Platelet Count 233 K/mm3 (150-400); RDW Coefficient Variation 14.6 % (11.7-14.2); RDW Standard Deviation 47.4 fL (35.1-46.3); Red Blood Cell Count 4.13 M/mm3 (4.30-5.90); White Blood Cell Count 11.32 K/mm3 (4.00-11.30)
--- NOTE | 2022-07-01 05:07 | NUR ---
PT SLEPT WELL, Q2HR TURNS
[2022-07-01 05:10] LABS: Bun/Creatinine Ratio 22.1 (12.0-20.0); Calcium, Blood 8.9 mg/dL (8.5-10.1); Creatinine, Blood 1.49 mg/dL (0.60-1.20)
[2022-07-01 07:57] VITALS: BP 146/63
[2022-07-01] MEDS ORDERED: CEFU500T30 PO (11:24)
--- NOTE | 2022-07-01 16:22 | NUR ---
PT DISCHARGED THE PT VERBALIZED UNDERSTANDING OF THE DC INSTRUCTIONS. [facility]. THE PT WAS REMINDED TO KEEP HIS APPOINTMENT WITH HIS PCP. THE PT WAS TRANSFERED VIA WHEELCHAIR ACCOMPANIED BY THIS RN TO THE FRONT TO MEET HIS
== END 2022-07-01 16:15 | disposition home health service (06) | DRG 698 ==
LOC: ER 19:47 → MEDS 23:25 → ENPENDDIS 07-01 10:56 → MEDS 07-01 16:15
PROVIDERS: Internal Medicine; Student in an Organized Health Care Education/Training Program; ADMIT Internal Medicine
PROC: 3E03329 Introduction of Other Anti-infective into Peripheral Vein, Percutaneous Approach (ICD-10-PCS; principal; 2022-06-28)
PROC: 5A09357 Assistance with Respiratory Ventilation, Less than 24 Consecutive Hours, Continuous Positive Airway Pressure (ICD-10-PCS; 2022-06-28)
PROC: 0T9B70Z Drainage of Bladder with Drainage Device, Via Natural or Artificial Opening (ICD-10-PCS; 2022-06-29)
DX: T83.518A Infection and inflammatory reaction due to other urinary catheter, initial encounter (principal); A41.50 Gram-negative sepsis, unspecified; G92.8 Other toxic encephalopathy; J96.01 Acute respiratory failure with hypoxia; N39.0 Urinary tract infection, site not specified; R47.01 Aphasia; N17.9 Acute kidney failure, unspecified; N18.30 Chronic kidney disease, stage 3 unspecified; E11.22 Type 2 diabetes mellitus with diabetic chronic kidney disease; I12.9 Hypertensive chronic kidney disease with stage 1 through stage 4 chronic kidney disease, or unspecified chronic kidney disease; G20 Parkinson's disease; E11.42 Type 2 diabetes mellitus with diabetic polyneuropathy; F32.A Depression, unspecified; N40.1 Benign prostatic hyperplasia with lower urinary tract symptoms; R33.8 Other retention of urine; F02.80 Dementia in other diseases classified elsewhere, unspecified severity, without behavioral disturbance, psychotic disturbance, mood disturbance, and anxiety; G31.83 Neurocognitive disorder with Lewy bodies; Z88.8 Allergy status to other drugs, medicaments and biological substances; Z79.899 Other long term (current) drug therapy; Z79.01 Long term (current) use of anticoagulants; Z79.82 Long term (current) use of aspirin; Z79.4 Long term (current) use of insulin; Z79.84 Long term (current) use of oral hypoglycemic drugs; Z79.2 Long term (current) use of antibiotics; Z79.51 Long term (current) use of inhaled steroids; Z87.440 Personal history of urinary (tract) infections; Z98.890 Other specified postprocedural states; Z79.02 Long term (current) use of antithrombotics/antiplatelets; Y84.6 Urinary catheterization as the cause of abnormal reaction of the patient, or of later complication, without mention of misadventure at the time of the procedure
CPT/HCPCS: 36415; 51701; 70450; 70496; 70498; 71045; 80047; 80048; 80053; 80069; 81001; 82947; 83605; 83735; 83880; 84484; 85014; 85025; 85027; 85610; 87077; 87086; 87186; 93005; 93010; 94660; 94760; 94762; 96374-59; 96375-59; 97110; 97162; 99285-25; A9270; J0696; J1650; J1815; J3370; J7030; J7050; Q9967

== ENCOUNTER 2022-09-22 21:21 | Inpatient (IN) | payer OTHER ==
[~2022-09-22] VITALS: Ht 180.3 cm; Wt 119.9 kg
[~2022-09-22 21:21] MED LIST changes: +CEFU500T30 PO
[2022-09-22 22:19] LABS: Source, Urine Straight Cath
[2022-09-22 22:24] LABS: BASOPHILS ABSOLUTE AUTO 0.06 K/mm3 (0.00-0.23); BASOPHILS PERCENT AUTO 0 % (0-2); EOSINOPHILS ABSOLUTE AUTO 0.31 K/mm3 (0.00-0.68); EOSINOPHILS PERCENT AUTO 2 % (0-6); Hematocrit 40.1 % (37.0-53.0); Hemoglobin 13.2 g/dL (13.5-17.5); IMMATURE GRAN ABSOLUTE AUTO 0.07 K/mm3 (0.00-0.10); IMMATURE GRAN PERCENT AUTO 0 % (0-1); LYMPHOCYTES ABSOLUTE AUTO 1.97 K/mm3 (0.84-5.20); LYMPHOCYTES PERCENT AUTO 12 % (21-46); MONOCYTES ABSOLUTE AUTO 1.25 K/mm3 (0.16-1.47); MONOCYTES PERCENT AUTO 7 % (4-13); Mean Corpuscular HGB 28.9 pg (26.0-34.0); Mean Corpuscular HGB Conc 32.9 g/dL (31.5-36.5); Mean Corpuscular Volume 88 fL (80-100); Mean Platelet Volume 9.2 fL (9.1-12.4); NEUTROPHILS ABSOLUTE AUTO 13.39 K/mm3 (1.96-9.15); NEUTROPHILS PERCENT AUTO 79 % (41-73); Platelet Count 238 K/mm3 (150-400); RDW Coefficient Variation 14.6 % (11.7-14.2); RDW Standard Deviation 47.4 fL (35.1-46.3); Red Blood Cell Count 4.56 M/mm3 (4.30-5.90); White Blood Cell Count 17.05 K/mm3 (4.00-11.30)
[2022-09-22 22:25] LABS: Bilirubin, Urine Neg (Neg); Blood, Urine 4+ (Neg); Glucose Qualitative, Urine Neg (Neg); Ketones, Urine Neg (Neg); Leukocyte Esterase, Urine 1+ (Neg); Nitrite, Urine Pos (Neg); Protein, Urine 1+ (Neg); Specific Gravity, Urine 1.015 (1.003-1.022); Urobilinogen, Urine NORM (Normal)
[2022-09-22 22:26] LABS: Appearance, Urine Hazy (Clear); Color, Urine Yellow (P-Yellow)
[2022-09-22 22:38] LABS: Bacteria Many /hpf; Red Blood Cells, Urine 0-2 /hpf (0-2); Squamous Epithelial Cells Not Seen /hpf (Few)
[2022-09-22 22:45] LABS: Albumin, Blood 3.5 g/dL (3.4-5.0); Albumin/Globulin Ratio 0.8 (0.8-1.8); Bilirubin, Total 0.3 mg/dL (0.1-1.0); Bun/Creatinine Ratio 21.2 (12.0-20.0); Calcium, Blood 9.5 mg/dL (8.5-10.1); Creatinine, Blood 1.51 mg/dL (0.60-1.20); Globulin, Blood 4.4 g/dL (2.2-4.0); Potassium, Blood 4.3 mmol/L (3.5-5.5); Total Protein, Blood 7.9 g/dL (6.4-8.2)
[2022-09-23] MEDS ORDERED: LIDO700A20 TOP (00:53)
[2022-09-23] MEDS ORDERED: DOCU100 PO (00:54)
[2022-09-23] MEDS ORDERED: Voltaren100 GM TOP (00:54)
[2022-09-23 01:00] VITALS: BP 147/56
[2022-09-23 05:03] VITALS: BP 168/73
--- NOTE | 2022-09-23 05:13 | NUR ---
Shift Summary Pt admitted to this unit from ED with Dx of UTI + Sepsis. Pt has advanced parkinsons and dementia. He communicates primarily by either saying yes or shaking his head no. Per report he straight caths at home, he was straight cathed once in the ED and then voided without a catheter before transfering to our unit. Once here I placed a condom cath but there is no urine output yet, will bladder scan this AM. Pt is alert and oriented but difficult to assess orientation with communication barrier. He is pleasant and cooperative with care, comfortably sleeping.
[2022-09-23 05:31] LABS: BASOPHILS ABSOLUTE AUTO 0.06 K/mm3 (0.00-0.23); BASOPHILS PERCENT AUTO 0 % (0-2); EOSINOPHILS ABSOLUTE AUTO 0.24 K/mm3 (0.00-0.68); EOSINOPHILS PERCENT AUTO 1 % (0-6); Hematocrit 37.9 % (37.0-53.0); Hemoglobin 12.5 g/dL (13.5-17.5); IMMATURE GRAN ABSOLUTE AUTO 0.09 K/mm3 (0.00-0.10); IMMATURE GRAN PERCENT AUTO 1 % (0-1); LYMPHOCYTES ABSOLUTE AUTO 2.79 K/mm3 (0.84-5.20); LYMPHOCYTES PERCENT AUTO 14 % (21-46); MONOCYTES ABSOLUTE AUTO 1.78 K/mm3 (0.16-1.47); MONOCYTES PERCENT AUTO 9 % (4-13); Mean Corpuscular HGB 28.6 pg (26.0-34.0); Mean Corpuscular Volume 87 fL (80-100); Mean Platelet Volume 9.2 fL (9.1-12.4); NEUTROPHILS ABSOLUTE AUTO 14.67 K/mm3 (1.96-9.15); NEUTROPHILS PERCENT AUTO 75 % (41-73); Platelet Count 236 K/mm3 (150-400); RDW Coefficient Variation 14.7 % (11.7-14.2); RDW Standard Deviation 47.6 fL (35.1-46.3); Red Blood Cell Count 4.37 M/mm3 (4.30-5.90); White Blood Cell Count 19.63 K/mm3 (4.00-11.30)
[2022-09-23 06:12] LABS: Albumin, Blood 3.2 g/dL (3.4-5.0); Albumin/Globulin Ratio 0.8 (0.8-1.8); Bilirubin, Total 0.4 mg/dL (0.1-1.0); Bun/Creatinine Ratio 19.1 (12.0-20.0); Calcium, Blood 8.9 mg/dL (8.5-10.1); Creatinine, Blood 1.52 mg/dL (0.60-1.20); Globulin, Blood 4.2 g/dL (2.2-4.0); Potassium, Blood 3.9 mmol/L (3.5-5.5); Total Protein, Blood 7.4 g/dL (6.4-8.2)
[2022-09-23 07:24] VITALS: BP 153/61
[2022-09-23 15:00] VITALS: BP 153/57
--- NOTE | 2022-09-23 16:44 | NUR ---
SHIFT SUMMARY PATIENT ABLE TO GIVE GOOD RELIABLE HISTORY REGARDING STRAIGHT CATHING AT HOME AND DIFFICULTY WITH WASHING HANDS PRIOR TO INSERTION DUE TO NO RUNNING WATER TO SINK IN HIS BATHROOM, CONFIRMS THIS. TROUBLE SHOOTING EDUCATION FOR INFECTION CONTROL AND HYGEINE PROVIDED TO PATIENT AND . THEY V/U. 14F OCONNOR CATH INSERTED BY OBSTETRICS TEACHER PER MD ORDER AT 1015, URIN OUTPUT AT THAT TIME 400ML. PATIENT WITH SLIGHT HEADACHE TODAY RELIEVED BY TYLENOL AND COFFEE BROUGHT IN BY . PATIENT OTHERWISE HAS NO COMPLAINTS TODAY. BED IN LOW POSITION, CALL LIGHT IN REACH. WILL CONTINUE TO MONITOR.
[2022-09-23 19:40] VITALS: BP 137/53
--- NOTE | 2022-09-24 00:50 | NUR ---
PT EDUCATED ON [facility] FIRE SAFETY IGNITION/EXPLOSIVE SOURCES NON SMOKING POLICY AND VERBALIZED UNDERSTANDING.
--- NOTE | 2022-09-24 03:02 | NUR ---
SHIFT SUMMARY NOC PT A/O X 3-4. CONFUSED AT TIMES BUT PLEASANT AND COOPERATIVE WITH CARE. NO ACUTE CHANGES TO REPORT. PT RECEIVING IV ABX FOR UTI. OCONNOR IN PLACE DRAINING YELLOW URINE TO GRAVITY. RT ASSESSED HOME CPAP DEVICE AND PT NOW WEARING IT WHILE ON CONTINUOS BIOX MAINTAINING SPO2 > 94%. PT CBG 188 CNI PER SS. PT WAS ON PHONE WITH FOR ABOUT 3 HOURS. PT WBC 19.63, AWAITING AM LABS TO EVALUATE ABX THERAPY. PT IS CURRENTLY RESTING WITH BED IN LOWEST POSITION, AND CALL LIGHT WITHIN REACH.
[2022-09-24 04:49] LABS: Hematocrit 34.8 % (37.0-53.0); Hemoglobin 11.5 g/dL (13.5-17.5); Mean Corpuscular Volume 88 fL (80-100); Mean Platelet Volume 9.3 fL (9.1-12.4); Platelet Count 207 K/mm3 (150-400); RDW Coefficient Variation 14.7 % (11.7-14.2); RDW Standard Deviation 47.8 fL (35.1-46.3); Red Blood Cell Count 3.96 M/mm3 (4.30-5.90); White Blood Cell Count 13.65 K/mm3 (4.00-11.30)
[2022-09-24 05:05] VITALS: BP 126/52
[2022-09-24 05:46] LABS: Albumin, Blood 2.8 g/dL (3.4-5.0); Anion Gap 8 mmol/L (6-16); Blood Urea Nitrogen 30 mg/dL (8-24); CO2, Blood 25 mmol/L (21-32); Calcium, Blood 8.4 mg/dL (8.5-10.1); Chloride, Blood 105 mmol/L (98-108); Creatinine, Blood 1.58 mg/dL (0.60-1.20); Glomerular Filtration Rate 46 (60-); Glucose, Blood 154 mg/dL (70-99); Phosphorus, Blood 3.2 mg/dL (2.5-4.9); Potassium, Blood 3.9 mmol/L (3.5-5.5); Sodium, Blood 138 mmol/L (136-145)
[2022-09-24 07:15] VITALS: BP 148/60
[2022-09-24 15:23] VITALS: BP 112/80
--- NOTE | 2022-09-24 18:10 | NUR ---
Met with pt and today. We had a good visit, and both pt and report they generally consult with their RN daughter when making healthcare decisions. They were unaware of what POLST is, and while interested in filling out a POLST, requests to take it home to fill out with daughter. Also gave pt and an AD for patient. They will also review this with daughter. Pt states he wouldn't want to be kept alive artificially, but agrees with to fill out POLST with daughter. The visit was therapeutic, and they request another visit tomorrow.
--- NOTE | 2022-09-24 18:43 | NUR ---
SHIFT SUMMARY PATIENT AOX4, QUIET VOICE, AFFECT FLAT INTERMITTENT. PATIENT UP TO CHAIR FOR BREAKFAST AND LUNCH. WALKED HALLWAY WITH WALKER, GAIT BELT 1-2 PERSON ASSIST. BED IN LOW POSIITON, CALL LIGHT IN REACH.
[2022-09-24 19:45] VITALS: BP 165/71
[2022-09-24 22:07] VITALS: BP 145/88
[2022-09-25 05:00] VITALS: BP 128/56
--- NOTE | 2022-09-25 05:38 | NUR ---
PATIENT REMAINS ALERT AND ORIENTED X4, SLOW TO RESPOND, COOPERATIVE WITH CARE. FC DRAINING TO GRAVITY, AND NO BM THIS SHIFT. SOME HTN AT START OF SHIFT WHICH RESOLVED WITH PM MEDICATION ADMINISTRATION. iV SL IN BETWEEN ABT'S. PATIENT SLEPT WELL AND DID NOT GET OOB. NO OTHER ISSUES TO REPORT.
[2022-09-25 06:06] LABS: Hematocrit 37.4 % (37.0-53.0); Hemoglobin 12.2 g/dL (13.5-17.5); Mean Corpuscular HGB 28.5 pg (26.0-34.0); Mean Corpuscular HGB Conc 32.6 g/dL (31.5-36.5); Mean Corpuscular Volume 87 fL (80-100); Mean Platelet Volume 9.3 fL (9.1-12.4); Platelet Count 220 K/mm3 (150-400); RDW Coefficient Variation 14.6 % (11.7-14.2); RDW Standard Deviation 46.5 fL (35.1-46.3); Red Blood Cell Count 4.28 M/mm3 (4.30-5.90); White Blood Cell Count 8.75 K/mm3 (4.00-11.30)
[2022-09-25 06:22] LABS: Bun/Creatinine Ratio 19.6 (12.0-20.0); Calcium, Blood 8.6 mg/dL (8.5-10.1); Creatinine, Blood 1.58 mg/dL (0.60-1.20); Potassium, Blood 3.9 mmol/L (3.5-5.5)
[2022-09-25 07:13] VITALS: BP 127/57
--- NOTE | 2022-09-25 10:22 | NUR ---
ASSUMED CARE OF PT. REPORT RECEIVED FROM CORNELIO FRANK. PT DENIES NEEDS/CONCERNS DURING BEDSIDE REPORT. NO APPARENT DISTRESS NOTED.
[2022-09-25] MEDS ORDERED: CEFU500T30 PO (12:19)
[2022-09-25] MEDS ORDERED: HUMALOG KW100 UNIT/1 SC (12:21)
--- NOTE | 2022-09-25 15:11 | NUR ---
DISCHARGE SUMMARY: PT EDUCATED ON DISCHARGE INSTRUCTIONS AND MEDICATIONS. PT ADVISED TO CONTINUE TO STRAIGHT CATH PER SCHEDULE AND FOLLOW INSTRUCTIONS/WASH HANDS PRIOR TO ST CATH TO PREVENT UTI. PT VU. ASSISTED PT WITH PACKING BELONGINGS INCLUDING BIPAP, CELL PHONE AND PIN TICKET MACHINE OPERATOR. PT ESCORTED TO POV VIA WC BY LYNNE.
== END 2022-09-25 15:12 | disposition home health service (06) | DRG 698 ==
LOC: ER 21:21 → MEDS 23:54 → ER 09-23 00:29 → MEDS 09-23 00:29 → ENPENDDIS 09-25 11:13 → MEDS 09-25 15:12
PROVIDERS: Internal Medicine; Student in an Organized Health Care Education/Training Program; ADMIT Internal Medicine
PROC: 5A09357 Assistance with Respiratory Ventilation, Less than 24 Consecutive Hours, Continuous Positive Airway Pressure (ICD-10-PCS; principal; 2022-09-23)
PROC: 3E03329 Introduction of Other Anti-infective into Peripheral Vein, Percutaneous Approach (ICD-10-PCS; 2022-09-23)
PROC: 0T9B70Z Drainage of Bladder with Drainage Device, Via Natural or Artificial Opening (ICD-10-PCS; 2022-09-23)
DX: T83.518A Infection and inflammatory reaction due to other urinary catheter, initial encounter (principal); A41.50 Gram-negative sepsis, unspecified; G92.8 Other toxic encephalopathy; N39.0 Urinary tract infection, site not specified; N13.8 Other obstructive and reflux uropathy; E11.22 Type 2 diabetes mellitus with diabetic chronic kidney disease; N40.1 Benign prostatic hyperplasia with lower urinary tract symptoms; G20 Parkinson's disease; G47.33 Obstructive sleep apnea (adult) (pediatric); G31.83 Neurocognitive disorder with Lewy bodies; F02.80 Dementia in other diseases classified elsewhere, unspecified severity, without behavioral disturbance, psychotic disturbance, mood disturbance, and anxiety; E11.42 Type 2 diabetes mellitus with diabetic polyneuropathy; I12.9 Hypertensive chronic kidney disease with stage 1 through stage 4 chronic kidney disease, or unspecified chronic kidney disease; F32.A Depression, unspecified; E66.01 Morbid (severe) obesity due to excess calories; N18.32 Chronic kidney disease, stage 3b; Y84.6 Urinary catheterization as the cause of abnormal reaction of the patient, or of later complication, without mention of misadventure at the time of the procedure; Z79.899 Other long term (current) drug therapy; Z79.01 Long term (current) use of anticoagulants; Z79.82 Long term (current) use of aspirin; Z79.4 Long term (current) use of insulin; Z79.84 Long term (current) use of oral hypoglycemic drugs; Z79.51 Long term (current) use of inhaled steroids; Z99.89 Dependence on other enabling machines and devices; Z88.8 Allergy status to other drugs, medicaments and biological substances; Z98.890 Other specified postprocedural states; Z68.36 Body mass index [BMI] 36.0-36.9, adult
CPT/HCPCS: 36415; 71045; 80048; 80053; 80069; 81001; 82947; 83605; 85025; 85027; 87040; 87077; 87086; 87186; 94660; 94762; 96361; 96365; 97112; 97116; 97162; 97166; 97535; 99285-25; A9270; J0696; J1650; J1815; J7030; J7050; P9612

== ENCOUNTER 2022-12-09 23:31 | Emergency (ER) | payer OTHER ==
[~2022-12-09] VITALS: Ht 180.3 cm; Wt 118.8 kg
[~2022-12-09 23:31] MED LIST changes: +DOCU100 PO; +Voltaren100 GM TOP
[2022-12-10 00:39] LABS: BASOPHILS ABSOLUTE AUTO 0.04 K/mm3 (0.00-0.23); BASOPHILS PERCENT AUTO 0 % (0-2); EOSINOPHILS ABSOLUTE AUTO 0.24 K/mm3 (0.00-0.68); EOSINOPHILS PERCENT AUTO 2 % (0-6); Hematocrit 41.6 % (37.0-53.0); Hemoglobin 13.3 g/dL (13.5-17.5); IMMATURE GRAN ABSOLUTE AUTO 0.05 K/mm3 (0.00-0.10); IMMATURE GRAN PERCENT AUTO 0 % (0-1); LYMPHOCYTES ABSOLUTE AUTO 2.23 K/mm3 (0.84-5.20); LYMPHOCYTES PERCENT AUTO 14 % (21-46); MONOCYTES ABSOLUTE AUTO 1.08 K/mm3 (0.16-1.47); MONOCYTES PERCENT AUTO 7 % (4-13); Mean Corpuscular HGB 28.2 pg (26.0-34.0); Mean Corpuscular Volume 88 fL (80-100); NEUTROPHILS ABSOLUTE AUTO 12.69 K/mm3 (1.96-9.15); NEUTROPHILS PERCENT AUTO 78 % (41-73); Platelet Count 242 K/mm3 (150-400); RDW Coefficient Variation 14.8 % (11.7-14.2); RDW Standard Deviation 47.8 fL (35.1-46.3); Red Blood Cell Count 4.71 M/mm3 (4.30-5.90); White Blood Cell Count 16.33 K/mm3 (4.00-11.30)
[2022-12-10 00:55] LABS: Source, Urine Clean Catch
[2022-12-10 01:03] LABS: Albumin, Blood 3.3 g/dL (3.4-5.0); Albumin/Globulin Ratio 0.7 (0.8-1.8); Bilirubin, Total 0.2 mg/dL (0.1-1.0); Bun/Creatinine Ratio 18.1 (12.0-20.0); Calcium, Blood 9.1 mg/dL (8.5-10.1); Creatinine, Blood 1.66 mg/dL (0.60-1.20); Globulin, Blood 4.7 g/dL (2.2-4.0); Magnesium, Blood 2.1 mg/dL (1.6-2.4); Phosphorus, Blood 3.1 mg/dL (2.5-4.9); Potassium, Blood 4.5 mmol/L (3.5-5.5)
[2022-12-10 01:22] LABS: Bilirubin, Urine Neg (Neg); Blood, Urine Neg (Neg); Glucose Qualitative, Urine Neg (Neg); Ketones, Urine Neg (Neg); Leukocyte Esterase, Urine Neg (Neg); Nitrite, Urine Neg (Neg); Protein, Urine 2+ (Neg); Specific Gravity, Urine 1.015 (1.003-1.022); Urobilinogen, Urine NORM (Normal)
[2022-12-10 01:29] LABS: Color, Urine Yellow (P-Yellow)
[2022-12-10 01:30] LABS: Appearance, Urine Hazy (Clear)
[2022-12-10 01:31] LABS: Bacteria Few /hpf; Red Blood Cells, Urine 0-2 /hpf (0-2); Squamous Epithelial Cells Rare /hpf (Few)
[2022-12-10 02:05] LABS: Influenza A, PCR NEGATIVE (NEGATIVE); Influenza B, PCR NEGATIVE (NEGATIVE); Resp Syncytial Virus, PCR NEGATIVE (NEGATIVE); SARS-Cov-2 (COVID-19) PCR, MMC NEGATIVE (NEGATIVE)
[2022-12-10 05:42] LABS: Base Excess Venous 0.4 mmol/L; Bicarbonate Venous 24.6 mmol/L (24.0-30.0); PCO2 Venous 42.3 mmHg (38-42); pH Blood Venous 7.39 (7.34-7.37)
[2022-12-10 06:00] LABS: Thyroid Stimulating Hormone 1.63 uIU/mL (0.360-4.800)
[2022-12-10 09:30] VITALS: BP 154/73
== END 2022-12-10 10:03 | disposition home or self-care (01) ==
LOC: ER 23:31
PROVIDERS: Emergency Medicine
DX: R41.0 Disorientation, unspecified (principal); E86.0 Dehydration; R33.9 Retention of urine, unspecified; I12.9 Hypertensive chronic kidney disease with stage 1 through stage 4 chronic kidney disease, or unspecified chronic kidney disease; N18.30 Chronic kidney disease, stage 3 unspecified; E11.22 Type 2 diabetes mellitus with diabetic chronic kidney disease; G20.C Parkinsonism, unspecified
CPT/HCPCS: 0241U; 36415; 51702; 71046; 80053; 81001; 82803; 83605; 83735; 84100; 84443; 85025; 87040; 87077; 87086; 87186; 93005; 93010; 99284; J7030

== ENCOUNTER 2023-02-04 09:32 | Inpatient (IN) | payer OTHER ==
[~2023-02-04] VITALS: Ht 185.4 cm; Wt 119.9 kg
[2023-02-04 10:49] LABS: BASOPHILS ABSOLUTE AUTO 0.05 K/mm3 (0.00-0.23); BASOPHILS PERCENT AUTO 0 % (0-2); EOSINOPHILS ABSOLUTE AUTO 0.26 K/mm3 (0.00-0.68); EOSINOPHILS PERCENT AUTO 2 % (0-6); Hematocrit 40.2 % (37.0-53.0); Hemoglobin 12.8 g/dL (13.5-17.5); IMMATURE GRAN ABSOLUTE AUTO 0.07 K/mm3 (0.00-0.10); IMMATURE GRAN PERCENT AUTO 0 % (0-1); LYMPHOCYTES ABSOLUTE AUTO 1.53 K/mm3 (0.84-5.20); LYMPHOCYTES PERCENT AUTO 9 % (21-46); MONOCYTES ABSOLUTE AUTO 1.08 K/mm3 (0.16-1.47); MONOCYTES PERCENT AUTO 7 % (4-13); Mean Corpuscular HGB 28.1 pg (26.0-34.0); Mean Corpuscular HGB Conc 31.8 g/dL (31.5-36.5); Mean Corpuscular Volume 88 fL (80-100); Mean Platelet Volume 9.1 fL (9.1-12.4); NEUTROPHILS ABSOLUTE AUTO 13.29 K/mm3 (1.96-9.15); NEUTROPHILS PERCENT AUTO 82 % (41-73); Platelet Count 230 K/mm3 (150-400); RDW Coefficient Variation 15.6 % (11.7-14.2); RDW Standard Deviation 50.3 fL (35.1-46.3); Red Blood Cell Count 4.56 M/mm3 (4.30-5.90); White Blood Cell Count 16.28 K/mm3 (4.00-11.30)
[2023-02-04 11:14] LABS: Albumin, Blood 3.4 g/dL (3.4-5.0); Albumin/Globulin Ratio 0.8 (0.8-1.8); Bilirubin, Total 0.3 mg/dL (0.1-1.0); Bun/Creatinine Ratio 22.2 (12.0-20.0); Creatinine, Blood 1.58 mg/dL (0.60-1.20); Globulin, Blood 4.5 g/dL (2.2-4.0); Magnesium, Blood 1.8 mg/dL (1.6-2.4); Potassium, Blood 4.4 mmol/L (3.5-5.5); Total Protein, Blood 7.9 g/dL (6.4-8.2)
[2023-02-04 12:02] LABS: Source, Urine Straight Cath
[2023-02-04 12:08] LABS: Appearance, Urine Hazy (Clear); Bilirubin, Urine Neg (Neg); Blood, Urine Neg (Neg); Color, Urine Yellow (P-Yellow); Glucose Qualitative, Urine Neg (Neg); Ketones, Urine Neg (Neg); Leukocyte Esterase, Urine 1+ (Neg); Nitrite, Urine Pos (Neg); Protein, Urine 2+ (Neg); Urobilinogen, Urine NORM (Normal)
[2023-02-04 12:14] LABS: Bacteria Many /hpf
[2023-02-04 12:15] LABS: Squamous Epithelial Cells Rare /hpf (Few); Transitional Epithelial Cells Rare /hpf (0-Rare); White Blood Cells, Urine 25-50 /hpf (0-5)
[2023-02-04 12:51] LABS: Influenza A, PCR NEGATIVE (NEGATIVE); Influenza B, PCR NEGATIVE (NEGATIVE); Resp Syncytial Virus, PCR NEGATIVE (NEGATIVE); SARS-Cov-2 (COVID-19) PCR, MMC NEGATIVE (NEGATIVE)
[2023-02-04 15:01] VITALS: BP 148/53
--- NOTE | 2023-02-04 16:14 | NUR ---
DAYSHIFT SUMMARY 350 Patient alert & oriented to self, answers yes/no questions with delayed responsed. IVF infusing. Patients reports history of falls, reports he usually walker sometimes at home to get around. Pts reports patient selfs caths QID. Admitted for observation. Will continue plan of care.
[2023-02-04 20:03] VITALS: BP 130/89
[2023-02-05 03:52] VITALS: BP 123/78
--- NOTE | 2023-02-05 04:21 | NUR ---
SHIFT SUMMARY MARIFER WAS ALERT AND ORIENTED X 3-4 THIS SHIFT. PT IS SLOW TO RESPOND AND SOFTLY SPOKEN, BUT ANSWERS APPROPRIATELY AND CORRECTLY MOST OF THE TIME. NO ACUTE EVENTS TONIGHT, AND NO APARANT CHANGES IN PT CONDITION. PT DENIES C/P/PRESSURE AND SOB. PT HAS HAD 2 BM'S, AND I STRAIGHT CATHED HIM TWICE 800ML AND 550ML. PT HAS NO COMPLAINTS AT THIS TIME WHEN ASKED. PT RESTING IN BED AT A LOW POSITION WITH CALL LIGHT IN REACH WHICH HE USES APPROPRIATELY.
[2023-02-05 04:45] LABS: Hematocrit 34.8 % (37.0-53.0); Hemoglobin 11.1 g/dL (13.5-17.5); Mean Corpuscular HGB Conc 31.9 g/dL (31.5-36.5); Mean Corpuscular Volume 88 fL (80-100); Mean Platelet Volume 9.3 fL (9.1-12.4); Platelet Count 216 K/mm3 (150-400); RDW Coefficient Variation 15.9 % (11.7-14.2); RDW Standard Deviation 50.8 fL (35.1-46.3); Red Blood Cell Count 3.97 M/mm3 (4.30-5.90); White Blood Cell Count 20.46 K/mm3 (4.00-11.30)
[2023-02-05 06:06] LABS: Bun/Creatinine Ratio 17.5 (12.0-20.0); Calcium, Blood 7.8 mg/dL (8.5-10.1); Creatinine, Blood 1.43 mg/dL (0.60-1.20)
[2023-02-05 07:13] VITALS: BP 138/64
[2023-02-05 14:51] VITALS: BP 128/83
[2023-02-05 19:46] VITALS: BP 98/69
[2023-02-06 02:51] VITALS: BP 142/60
[2023-02-06 06:04] LABS: Hematocrit 34.7 % (37.0-53.0); Hemoglobin 11.1 g/dL (13.5-17.5); Mean Corpuscular HGB 28.5 pg (26.0-34.0); Mean Corpuscular Volume 89 fL (80-100); Mean Platelet Volume 9.4 fL (9.1-12.4); Platelet Count 195 K/mm3 (150-400); RDW Coefficient Variation 15.9 % (11.7-14.2); RDW Standard Deviation 51.5 fL (35.1-46.3); Red Blood Cell Count 3.89 M/mm3 (4.30-5.90); White Blood Cell Count 13.15 K/mm3 (4.00-11.30)
--- NOTE | 2023-02-06 06:05 | NUR ---
SHIFT SUMMERY, PT AT THIS TIME SLEEPING WELL. PT ST CATH AT START OF SHIFT THEN AT 0230 PT ONL PUT OUT 200 ML OF URINE. PT HAS ON HIS CPAP AND WAS SEEMING TO SLEEP WELL UNTILL AWOKEN TO DO ST CATH. CALL LIGHT IN REACH BED ALARM ON.
[2023-02-06 06:41] LABS: Bun/Creatinine Ratio 17.3 (12.0-20.0); Calcium, Blood 8.2 mg/dL (8.5-10.1); Creatinine, Blood 1.33 mg/dL (0.60-1.20); Potassium, Blood 3.9 mmol/L (3.5-5.5)
[2023-02-06 07:39] VITALS: BP 159/63
[2023-02-06] MEDS ORDERED: CEFU500T30 PO (11:50)
--- NOTE | 2023-02-06 16:09 | NUR ---
LATE ENTRY/DC HOME 1345: WRITTEN & VERBAL DC INSTRUCTIONS GIVEN TO PT WITH PRESENT, BOTH VERBALIZED GOOD UNDERSTANDING. ALL CONCERNS & QUESTIONS ADDRESSED. PIV DC'D WITH CATH TIP INTACT, NO REDNESS OR SWELLING NOTED. [facility] PT OUT TO [facility] VIA W/C WITH ALL PERSONAL BELONGINGS.
== END 2023-02-06 13:55 | disposition home health service (06) | DRG 698 ==
LOC: ER 09:32 → MEDS 12:46 → ENPENDDIS 02-06 10:23 → MEDS 02-06 13:55
PROVIDERS: Student in an Organized Health Care Education/Training Program; ADMIT Internal Medicine
DX: T83.518A Infection and inflammatory reaction due to other urinary catheter, initial encounter (principal); A41.59 Other Gram-negative sepsis; G92.8 Other toxic encephalopathy; R65.20 Severe sepsis without septic shock; N39.0 Urinary tract infection, site not specified; N13.8 Other obstructive and reflux uropathy; E87.20 Acidosis, unspecified; G31.83 Neurocognitive disorder with Lewy bodies; F02.80 Dementia in other diseases classified elsewhere, unspecified severity, without behavioral disturbance, psychotic disturbance, mood disturbance, and anxiety; G20.A1 Parkinson's disease without dyskinesia, without mention of fluctuations; N40.1 Benign prostatic hyperplasia with lower urinary tract symptoms; N18.30 Chronic kidney disease, stage 3 unspecified; I10 Essential (primary) hypertension; E11.22 Type 2 diabetes mellitus with diabetic chronic kidney disease; R33.8 Other retention of urine; Z88.8 Allergy status to other drugs, medicaments and biological substances; Z79.82 Long term (current) use of aspirin; Z79.4 Long term (current) use of insulin; Z79.02 Long term (current) use of antithrombotics/antiplatelets; Z11.52 Encounter for screening for COVID-19; Z91.81 History of falling
CPT/HCPCS: 0241U; 36415; 70450; 71045; 80048; 80053; 81001; 82947; 83605; 83735; 85025; 85027; 87040; 87077; 87086; 87186; 93005; 93010; 94760; 96361; 96365; 97110; 97116; 97162; 99285-25; A9270; J0696; J1650; J1815; J7030

== ENCOUNTER 2023-08-21 13:14 | Inpatient (IN) | payer OTHER ==
[~2023-08-21] VITALS: Ht 182.9 cm; Wt 118.6 kg
[~2023-08-21 13:14] MED LIST changes: +Acetaminophen325 M1 PO; +BUPROPION XL150 M1 PO; +CARBLEV25 PO
[2023-08-21 13:48] LABS: BASOPHILS ABSOLUTE AUTO 0.03 K/mm3 (0.00-0.23); BASOPHILS PERCENT AUTO 0 % (0-2); EOSINOPHILS ABSOLUTE AUTO 0.12 K/mm3 (0.00-0.68); EOSINOPHILS PERCENT AUTO 1 % (0-6); Hematocrit 39.3 % (37.0-53.0); Hemoglobin 12.6 g/dL (13.5-17.5); IMMATURE GRAN ABSOLUTE AUTO 0.05 K/mm3 (0.00-0.10); IMMATURE GRAN PERCENT AUTO 1 % (0-1); LYMPHOCYTES ABSOLUTE AUTO 0.88 K/mm3 (0.84-5.20); LYMPHOCYTES PERCENT AUTO 9 % (21-46); MONOCYTES ABSOLUTE AUTO 0.45 K/mm3 (0.16-1.47); MONOCYTES PERCENT AUTO 5 % (4-13); Mean Corpuscular HGB 27.7 pg (26.0-34.0); Mean Corpuscular HGB Conc 32.1 g/dL (31.5-36.5); Mean Corpuscular Volume 86 fL (80-100); Mean Platelet Volume 8.8 fL (9.1-12.4); NEUTROPHILS ABSOLUTE AUTO 7.81 K/mm3 (1.96-9.15); NEUTROPHILS PERCENT AUTO 84 % (41-73); Platelet Count 240 K/mm3 (150-400); RDW Coefficient Variation 15.4 % (11.7-14.2); RDW Standard Deviation 49.1 fL (35.1-46.3); Red Blood Cell Count 4.55 M/mm3 (4.30-5.90); White Blood Cell Count 9.34 K/mm3 (4.00-11.30)
[2023-08-21 13:58] LABS: Source, Urine Foley catheter
[2023-08-21 14:02] LABS: Appearance, Urine Hazy (Clear); Bilirubin, Urine Neg (Neg); Blood, Urine 4+ (Neg); Color, Urine Yellow (P-Yellow); Glucose Qualitative, Urine Neg (Neg); Ketones, Urine Neg (Neg); Leukocyte Esterase, Urine 3+ (Neg); Nitrite, Urine Neg (Neg); Protein, Urine 2+ (Neg); Specific Gravity, Urine 1.015 (1.003-1.022); Urobilinogen, Urine NORM (Normal)
[2023-08-21 14:16] LABS: Alanine Aminotransfer (ALT/SGP <6 U/L (12-78); Albumin, Blood 3.3 g/dL (3.4-5.0); Albumin/Globulin Ratio 0.7 (0.8-1.8); Alk Phos 99 U/L (50-136); Anion Gap 10 mmol/L (3-11); Aspartate Aminotrans (AST/SGOT 14 U/L (12-37); Bilirubin, Total 0.4 mg/dL (0.1-1.0); Blood Urea Nitrogen 31 mg/dL (8-24); Bun/Creatinine Ratio 20.7 (12.0-20.0); CO2, Blood 24 mmol/L (21-32); Calcium, Blood 9.5 mg/dL (8.5-10.1); Chloride, Blood 108 mmol/L (98-108); Globulin, Blood 4.7 g/dL (2.2-4.0); Glomerular Filtration Rate 48 (60-); Glucose, Blood 152 mg/dL (70-99); Potassium, Blood 4.4 mmol/L (3.5-5.5); Sodium, Blood 138 mmol/L (136-145)
[2023-08-21 14:24] LABS: Amorphous Mod (0-Heavy); Bacteria Many /hpf; Squamous Epithelial Cells Rare /hpf (Few); White Blood Cells, Urine 50-100 /hpf (0-5)
[2023-08-21] MEDS ORDERED: MEMA10 PO (15:09)
[2023-08-21] MEDS ORDERED: METF500 PO (15:09)
[2023-08-21] MEDS ORDERED: Cefepime HCl 2,000 MG in NS 100 ML IV ONE (15:20)
[2023-08-21 17:09] LABS: Source, Urine Foley catheter
[2023-08-21] MEDS ORDERED: NS 1,000 ML IV SCH (17:40)
[2023-08-21] MEDS ORDERED: Ondansetron HCl 2 MG / ML 2ML Vial IV PRN (17:40)
[2023-08-21] MEDS ORDERED: Acetaminophen 325 MG TABLET PO PRN (17:45)
[2023-08-21 18:02] LABS: Appearance, Urine Hazy (Clear); Bilirubin, Urine Neg (Neg); Blood, Urine 1+ (Neg); Glucose Qualitative, Urine Neg (Neg); Ketones, Urine Neg (Neg); Leukocyte Esterase, Urine 2+ (Neg); Nitrite, Urine Neg (Neg); Protein, Urine Neg (Neg); Urobilinogen, Urine NORM (Normal)
[2023-08-21] MEDS ORDERED: Albuterol HFA200 ACT/6.7 GM INH INH PRN (18:05)
[2023-08-21 18:09] LABS: Color, Urine Pale Yellow (P-Yellow)
[2023-08-21 18:10] LABS: White Blood Cells, Urine 50-100 /hpf (0-5)
[2023-08-21 18:12] LABS: Bacteria Many /hpf; Squamous Epithelial Cells Not Seen /hpf (Few); Transitional Epithelial Cells Few /hpf (0-Rare)
[2023-08-21 18:16] LABS: Influenza A, PCR NEGATIVE (NEGATIVE); Influenza B, PCR NEGATIVE (NEGATIVE); Resp Syncytial Virus, PCR NEGATIVE (NEGATIVE); SARS-Cov-2 (COVID-19) PCR, MMC NEGATIVE (NEGATIVE)
[2023-08-21 19:59] VITALS: BP 144/83
[2023-08-21] MEDS ORDERED: Memantine HCL 5 MG Tab PO SCH (21:00)
[2023-08-21] MEDS ORDERED: Melatonin 3 MG Tab PO SCH (21:00)
[2023-08-21] MEDS ORDERED: Lactobacil 2-S.Thermo-Bifido 1 1 Cap PO SCH (21:00)
[2023-08-21] MEDS ORDERED: CefTRIAXone Sodium 1,000 MG in NS 100 ML IV SCH (21:00)
[2023-08-21] MEDS ORDERED: Levodopa/Carbidopa 100 / 25 MG Tab PO SCH (21:00)
[2023-08-21] MEDS ORDERED: Donepezil HCl 5 MG Tab PO SCH (21:00)
[2023-08-21] MEDS ORDERED: Gabapentin 100 MG Cap PO SCH (21:00)
[2023-08-22 05:21] VITALS: BP 122/97
--- NOTE | 2023-08-22 06:42 | NUR ---
SHIFT SUMMARY ADMITTED TO THE ROOM, NO FAMILY WITH HIM TO HELP ADMIT HIM. PATIENT NON VERBAL D/T ADVANCED CASTRO'S WILL BE IN TOMORROW. TEMP 101.6, G. IV FLUIDS STRATED, ROCEPHIN GIVEN AND THYENOL IN APPLE SAUCE
[2023-08-22] MEDS ORDERED: Insulin Human Lispro 100 Units/ML 3ML Syringe SC SCH (07:30)
[2023-08-22 07:40] VITALS: BP 150/80
[2023-08-22] MEDS ORDERED: Aspirin 81 MG TabEC PO SCH (09:00)
[2023-08-22] MEDS ORDERED: Insulin Glargine-Yfgn 100 Unit/mL 3 ML SYR SC SCH (09:00)
[2023-08-22] MEDS ORDERED: Rosuvastatin Calcium 10 MG Tab PO SCH (09:00)
[2023-08-22] MEDS ORDERED: Furosemide 20 MG Tab PO SCH (09:00)
[2023-08-22] MEDS ORDERED: Clopidogrel Bisulfate 75 MG Tab PO SCH (09:00)
[2023-08-22] MEDS ORDERED: Losartan Potassium 50 MG Tab PO SCH (09:00)
[2023-08-22] MEDS ORDERED: Enoxaparin 40 MG/0.4 ML SYR SC SCH (09:00)
[2023-08-22] MEDS ORDERED: Tamsulosin HCl 0.4 MG Cap PO SCH (09:00)
[2023-08-22] MEDS ORDERED: buPROPion HCL 150 MG TAB.SR.12H PO SCH (09:00)
[2023-08-22] MEDS ORDERED: Citalopram Hydrobromide 20 MG Tab PO SCH (09:00)
[2023-08-22 15:17] VITALS: BP 144/64
--- NOTE | 2023-08-22 17:55 | NUR ---
PT PLEASANT TODAY. NO PAIN REPORTED SINCE HEADACHE THIS AM. STATES TYLENOL HELPED. IN TO SEE TODAY. PT HAS BEEN A/0 X3-4 TODAY. NO NEW CONCERNS NOTED. STATES STILL FEELS WEAK. BED IN LOW POSITION, CALL LITE IN REACH CALLS APPROP
[2023-08-22 19:31] VITALS: BP 151/105
--- NOTE | 2023-08-23 05:47 | NUR ---
SHIFT SUMMARY PATIENT SLEPT FAIR, DID HAVE ELEVATED TEMP, WAS GIVEN PRN TYLENOL FOR. OCONNOR DRAINING LIGHT YELLOW URINE.
[2023-08-23 07:50] VITALS: BP 159/64
[2023-08-23 08:47] VITALS: BP 150/67
[2023-08-23 15:27] VITALS: BP 161/72
--- NOTE | 2023-08-23 17:39 | NUR ---
PT PLEASANT TODAY. STATES FEELING BETTER. ALERT X3. IN TO VISIT TODAY. NO C/O PAIN TODAY. PT IS MORE QUICK TO ANSWER QUESTIONS AND STATES IMPROVING. WE ARE ABLE TO MOVE TO MAIN MEDICAL [facility]. RM 324. WILL CALL REPORT AND TRANSFER. NO NEW CONCERNS NOTED. BED IN LOW POSITIOIN, CALL LITE IN REACH, CALLS APPROP
[2023-08-23 20:09] VITALS: BP 151/81
[2023-08-23] MEDS ORDERED: NS 250 ML IV PRN (22:50)
[2023-08-24 01:45] VITALS: BP 138/68
--- NOTE | 2023-08-24 04:57 | NUR ---
SHIFT SUMMARY PATIENT HAD NO ACUTE CHANGES. AXOX 4 AND TWO ASSIST STAND PIVOT TO BSC. PIV REMAINS INTACT. IV ABX INFUSED. DENIES CHEST PAIN, SOB, AND N/V. OCONNOR PATENT AND DRAINING FOR RETENTION. VSS/AFEBRILE. SLEPT MOST OF THE SHIFT. CALL LIGHT IN REACH. BED IN LOWEST POSITION. WILL CONTINUE TO MONITOR UNTIL DAY SHIFT NURSE ASSUMES CARE.
[2023-08-24 05:39] LABS: Bun/Creatinine Ratio 18.2 (12.0-20.0); Calcium, Blood 8.9 mg/dL (8.5-10.1); Creatinine, Blood 1.59 mg/dL (0.60-1.20); Potassium, Blood 3.9 mmol/L (3.5-5.5)
[2023-08-24 07:18] VITALS: BP 139/75
[2023-08-24] MEDS ORDERED: Vancomycin HCL 2,500 MG in NS 250 ML IV ONE (08:50)
[2023-08-24] MEDS ORDERED: SuccINYLCHOLINE Chloride 100 MG/5 ML 5MLSYR ONE (09:59)
[2023-08-24] MEDS ORDERED: VISBIOME 112.51 EACH PO (10:35)
[2023-08-24] MEDS ORDERED: AMOCLA875 PO (10:36)
[2023-08-24] MEDS ORDERED: Dexamethasone Sod Phos 10 MG/ML 1ML VIAL ONE (11:45)
[2023-08-24] MEDS ORDERED: propofoL 20 ML IV ONE (11:45)
[2023-08-24] MEDS ORDERED: Ondansetron HCl 2 MG / ML 2ML Vial ONE (11:45)
[2023-08-24] MEDS ORDERED: Sugammadex Sodium 200 MG/2ML SDV (100 MG/ML) ONE (11:45)
[2023-08-24] MEDS ORDERED: Rocuronium Bromide 10 MG/ML 5ML Injection IV ONE (11:45)
[2023-08-24] MEDS ORDERED: FentaNYL Citrate 50 MCG/ML 2 ML Injection ONE (11:45)
[2023-08-24] MEDS ORDERED: ePHEDrine Sulfate 50 MG/ML 1ML Injection ONE (12:24)
--- NOTE | 2023-08-24 17:05 | NUR ---
DISCHARGE THIS RN EXPLAINED DISCHARGE INSTRUCTIONS AND MEDICATIONS TO PT'S SPOUSE, NAEL. SHE REPORTS SHE UNDERSTANDS. IV REMOVED WITHOUT DIFFICULTY. PT TRANSFERRED TO PRIVATE VEHICLE VIA WHEELCHAIR. PT'S BELONGINGS WITH SPOUSE.
[2023-08-25] MEDS ORDERED: Vancomycin HCL 1,500 MG in NS 250 ML IV SCH (10:00)
== END 2023-08-24 16:55 | disposition home health service (06) | DRG 698 ==
LOC: ER 13:14 → MEDS 17:37
PROVIDERS: Emergency Medicine; Internal Medicine; ADMIT Internal Medicine
PROC: 0T2BX0Z Change Drainage Device in Bladder, External Approach (ICD-10-PCS; principal; 2023-08-21)
PROC: 5A09357 Assistance with Respiratory Ventilation, Less than 24 Consecutive Hours, Continuous Positive Airway Pressure (ICD-10-PCS; 2023-08-21)
PROC: 3E03329 Introduction of Other Anti-infective into Peripheral Vein, Percutaneous Approach (ICD-10-PCS; 2023-08-21)
DX: T83.511A Infection and inflammatory reaction due to indwelling urethral catheter, initial encounter (principal); A41.9 Sepsis, unspecified organism; G92.8 Other toxic encephalopathy; N39.0 Urinary tract infection, site not specified; N40.0 Benign prostatic hyperplasia without lower urinary tract symptoms; N18.30 Chronic kidney disease, stage 3 unspecified; E11.22 Type 2 diabetes mellitus with diabetic chronic kidney disease; I12.9 Hypertensive chronic kidney disease with stage 1 through stage 4 chronic kidney disease, or unspecified chronic kidney disease; G20.A1 Parkinson's disease without dyskinesia, without mention of fluctuations; B96.89 Other specified bacterial agents as the cause of diseases classified elsewhere; F02.80 Dementia in other diseases classified elsewhere, unspecified severity, without behavioral disturbance, psychotic disturbance, mood disturbance, and anxiety; G31.83 Neurocognitive disorder with Lewy bodies; E78.5 Hyperlipidemia, unspecified; Y84.6 Urinary catheterization as the cause of abnormal reaction of the patient, or of later complication, without mention of misadventure at the time of the procedure; B96.1 Klebsiella pneumoniae [K. pneumoniae] as the cause of diseases classified elsewhere; B95.2 Enterococcus as the cause of diseases classified elsewhere; E66.01 Morbid (severe) obesity due to excess calories; Z79.899 Other long term (current) drug therapy; Z79.84 Long term (current) use of oral hypoglycemic drugs; Z79.4 Long term (current) use of insulin; Z79.01 Long term (current) use of anticoagulants; Z79.82 Long term (current) use of aspirin; Z79.51 Long term (current) use of inhaled steroids; Z88.8 Allergy status to other drugs, medicaments and biological substances; Z68.31 Body mass index [BMI] 31.0-31.9, adult
CPT/HCPCS: 0241U; 36415; 71046; 71260; 80048; 80053; 81001; 82947; 83605; 85025; 87077; 87086; 87186; 93005; 93010; 94762; 96365-59; 97110; 97161; 97166; 97530; 97535; 99285-25; A9270; J0330; J0692; J0696; J1100; J1650; J1815; J2405; J2704; J3010; J3370; J7030; J7050; Q9967

== ENCOUNTER 2023-10-18 13:52 | Inpatient (IN) | payer OTHER ==
[~2023-10-18] VITALS: Ht 180.3 cm; Wt 120.1 kg
[~2023-10-18 13:52] MED LIST changes: +AMOCLA875 PO; +MEMA10 PO
[2023-10-18 14:39] LABS: BASOPHILS ABSOLUTE AUTO 0.05 K/mm3 (0.00-0.23); BASOPHILS PERCENT AUTO 0 % (0-2); EOSINOPHILS ABSOLUTE AUTO 0.34 K/mm3 (0.00-0.68); EOSINOPHILS PERCENT AUTO 2 % (0-6); Hemoglobin 12.2 g/dL (13.5-17.5); IMMATURE GRAN ABSOLUTE AUTO 0.11 K/mm3 (0.00-0.10); IMMATURE GRAN PERCENT AUTO 1 % (0-1); LYMPHOCYTES ABSOLUTE AUTO 2.09 K/mm3 (0.84-5.20); LYMPHOCYTES PERCENT AUTO 12 % (21-46); MONOCYTES PERCENT AUTO 6 % (4-13); Mean Corpuscular HGB Conc 32.1 g/dL (31.5-36.5); Mean Corpuscular Volume 87 fL (80-100); Mean Platelet Volume 9.5 fL (9.1-12.4); NEUTROPHILS ABSOLUTE AUTO 13.49 K/mm3 (1.96-9.15); NEUTROPHILS PERCENT AUTO 79 % (41-73); Platelet Count 241 K/mm3 (150-400); RDW Coefficient Variation 15.5 % (11.7-14.2); RDW Standard Deviation 49.5 fL (35.1-46.3); Red Blood Cell Count 4.35 M/mm3 (4.30-5.90); White Blood Cell Count 17.18 K/mm3 (4.00-11.30)
[2023-10-18] MEDS ORDERED: Piperacillin/Tazobactam Sod 4.5 GM in NS 100 ML IV ONE (14:45)
[2023-10-18 14:54] LABS: Albumin, Blood 3.1 g/dL (3.4-5.0); Albumin/Globulin Ratio 0.6 (0.8-1.8); Bilirubin, Total 0.5 mg/dL (0.1-1.0); Bun/Creatinine Ratio 21.1 (12.0-20.0); Calcium, Blood 9.2 mg/dL (8.5-10.1); Creatinine, Blood 1.52 mg/dL (0.60-1.20); Globulin, Blood 4.8 g/dL (2.2-4.0); Potassium, Blood 4.2 mmol/L (3.5-5.5); Total Protein, Blood 7.9 g/dL (6.4-8.2)
[2023-10-18] MEDS ORDERED: Lactated Ringer's 1,000 ML IV SCH (15:00)
[2023-10-18 15:13] LABS: Source, Urine Foley catheter
[2023-10-18 15:18] LABS: Appearance, Urine Hazy (Clear); Bilirubin, Urine Neg (Neg); Blood, Urine 2+ (Neg); Color, Urine Yellow (P-Yellow); Glucose Qualitative, Urine Neg (Neg); Ketones, Urine Neg (Neg); Leukocyte Esterase, Urine 3+ (Neg); Nitrite, Urine Neg (Neg); Protein, Urine 3+ (Neg); Urobilinogen, Urine NORM (Normal)
[2023-10-18 15:38] LABS: White Blood Cells, Urine 25-50 /hpf (0-5)
[2023-10-18 15:39] LABS: Bacteria Many /hpf; Hyaline Casts 0-2 /lpf (0-2); Mucus Light (0-Heavy); Red Blood Cells, Urine 0-2 /hpf (0-2); Renal Epithelial Rare /hpf (0-Rare); Squamous Epithelial Cells Rare /hpf (Few)
[2023-10-18 15:58] LABS: Influenza A, PCR NEGATIVE (NEGATIVE); Influenza B, PCR NEGATIVE (NEGATIVE); Resp Syncytial Virus, PCR NEGATIVE (NEGATIVE); SARS-Cov-2 (COVID-19) PCR, MMC NEGATIVE (NEGATIVE)
[2023-10-18] MEDS ORDERED: NS 1,000 ML IV SCH ×3 (16:00→17:20)
[2023-10-18] MEDS ORDERED: Acetaminophen 325 MG TABLET PO PRN (16:50)
[2023-10-18] MEDS ORDERED: Ondansetron HCl 2 MG / ML 2ML Vial IV PRN (16:50)
[2023-10-18] MEDS ORDERED: NS 1,000 ML IV ONE (17:37)
[2023-10-18] MEDS ORDERED: Piperacillin/Tazobactam Sod 3.375 GM in NS 100 ML IV SCH (20:00)
[2023-10-18] MEDS ORDERED: Levodopa/Carbidopa 100 / 25 MG Tab PO SCH (21:00)
[2023-10-18] MEDS ORDERED: Memantine HCL 5 MG Tab PO SCH (21:00)
[2023-10-18] MEDS ORDERED: Insulin Glargine-Yfgn 100 Unit/mL 3 ML SYR SC SCH (21:00)
[2023-10-18] MEDS ORDERED: CefTRIAXone Sodium 1,000 MG in NS 100 ML IV SCH (21:00)
[2023-10-18] MEDS ORDERED: Insulin Human Lispro 100 Units/ML 3ML Syringe SC SCH ×2 (21:00)
[2023-10-18] MEDS ORDERED: Lactobacil 2-S.Thermo-Bifido 1 1 Cap PO SCH (21:00)
[2023-10-18] MEDS ORDERED: Donepezil HCl 5 MG Tab PO SCH (21:00)
[2023-10-19 04:30] VITALS: BP 154/60
--- NOTE | 2023-10-19 05:07 | NUR ---
SHIFT SUMMARY PATIENT ARRIVED VIA GURNEY AT 2014. TRANS TO BED USING SLIDER SHEET. HE SEEMS TO BE NON-VERBAL, OR JUST EXHAUSTED. HIS DID NOT COME UP WITH HIM. TOOK PILLS WHOLE IN APPLESAUCE. ABLE TO SIP WATER THRU STRAW. LOW GRADE TEMP. NO PRN MEDS GIVEN.
[2023-10-19 05:18] LABS: BASOPHILS ABSOLUTE AUTO 0.04 K/mm3 (0.00-0.23); BASOPHILS PERCENT AUTO 0 % (0-2); EOSINOPHILS ABSOLUTE AUTO 0.44 K/mm3 (0.00-0.68); EOSINOPHILS PERCENT AUTO 3 % (0-6); Hematocrit 35.6 % (37.0-53.0); Hemoglobin 11.2 g/dL (13.5-17.5); IMMATURE GRAN ABSOLUTE AUTO 0.19 K/mm3 (0.00-0.10); IMMATURE GRAN PERCENT AUTO 1 % (0-1); LYMPHOCYTES ABSOLUTE AUTO 2.26 K/mm3 (0.84-5.20); LYMPHOCYTES PERCENT AUTO 13 % (21-46); MONOCYTES ABSOLUTE AUTO 1.19 K/mm3 (0.16-1.47); MONOCYTES PERCENT AUTO 7 % (4-13); Mean Corpuscular HGB 27.7 pg (26.0-34.0); Mean Corpuscular HGB Conc 31.5 g/dL (31.5-36.5); Mean Corpuscular Volume 88 fL (80-100); Mean Platelet Volume 9.3 fL (9.1-12.4); NEUTROPHILS ABSOLUTE AUTO 13.47 K/mm3 (1.96-9.15); NEUTROPHILS PERCENT AUTO 77 % (41-73); Platelet Count 226 K/mm3 (150-400); RDW Coefficient Variation 15.6 % (11.7-14.2); RDW Standard Deviation 50.4 fL (35.1-46.3); Red Blood Cell Count 4.04 M/mm3 (4.30-5.90); White Blood Cell Count 17.59 K/mm3 (4.00-11.30)
[2023-10-19 05:45] LABS: Bun/Creatinine Ratio 16.9 (12.0-20.0); Calcium, Blood 8.2 mg/dL (8.5-10.1); Creatinine, Blood 1.72 mg/dL (0.60-1.20); Potassium, Blood 3.9 mmol/L (3.5-5.5)
[2023-10-19 07:10] VITALS: BP 128/53
[2023-10-19] MEDS ORDERED: Enoxaparin 40 MG/0.4 ML SYR SC SCH (09:00)
[2023-10-19] MEDS ORDERED: Levodopa/Carbidopa 100 / 25 MG Tab PO STA (14:56)
[2023-10-19] MEDS ORDERED: Gabapentin 100 MG Cap PO ONE (15:05)
[2023-10-19 15:26] VITALS: BP 147/61
[2023-10-19] MEDS ORDERED: NS 250 ML IV PRN (16:15)
[2023-10-19] MEDS ORDERED: Levodopa/Carbidopa 100 / 25 MG Tab PO SCH (18:00)
[2023-10-19] MEDS ORDERED: Gabapentin 100 MG Cap PO SCH (18:00)
--- NOTE | 2023-10-19 18:38 | NUR ---
PATIENT ADMITTED FOR UTI SEPSIS. CHRONIC OCONNOR CHANGED IN ED. PATIENT WITH HX OF PARKINSON'S, WORKED WITH PT AND WAS ABLE TO STAND AT BEDSIDE. VSS, ON RA, CPAP WHILE ASLEEP. PATIENT DENIES ANY PAIN OR DISCOMFORT. BUTTOCKS RED, OTHERWISE SKIN INTACT. TURNED Q2 HOURS THIS SHIFT. A/O X3, PLEASANT AND COOPERATIVE WITH CARE. SLOW TO RESPOND, BUT ABLE TO MAKE NEEDS KNOWN. INCONTINENT OF BOWEL. NAEL SUPPORTIVE AND AT BEDSIDE THIS AFTERNOON. NO NEW CONCERNS THIS SHIFT.
[2023-10-19 19:30] VITALS: BP 129/68
[2023-10-20] MEDS ORDERED: NITR100CA PO (01:21)
[2023-10-20 04:10] VITALS: BP 149/64
--- NOTE | 2023-10-20 05:10 | NUR ---
NO ACUTE CHANGES THIS SHIFT. PT IS CALM AND COOPERATIVE. ABLE TO MAKE NEEDS KNOWN. USE OF CALL LIGHT APPROPRIATELY, OCONNOR INPLACE, OCONNOR CARE PROVIDED. PT Q 4 HR TURNED SUPPORTED WITH PILLOWS. IV ANTIBIOTICS CONTINUED. DENIES C/P OR PRESSURE, DENIES SOB. C/O OF DISCOMFORT AT PENIS, REPOSITIONED BRIEFS, PT STATED RELIEF OF PRESSURE.
[2023-10-20 05:23] LABS: BASOPHILS ABSOLUTE AUTO 0.04 K/mm3 (0.00-0.23); BASOPHILS PERCENT AUTO 0 % (0-2); EOSINOPHILS ABSOLUTE AUTO 0.82 K/mm3 (0.00-0.68); EOSINOPHILS PERCENT AUTO 7 % (0-6); Hematocrit 33.5 % (37.0-53.0); Hemoglobin 10.8 g/dL (13.5-17.5); IMMATURE GRAN ABSOLUTE AUTO 0.06 K/mm3 (0.00-0.10); IMMATURE GRAN PERCENT AUTO 1 % (0-1); LYMPHOCYTES PERCENT AUTO 21 % (21-46); MONOCYTES ABSOLUTE AUTO 0.92 K/mm3 (0.16-1.47); MONOCYTES PERCENT AUTO 8 % (4-13); Mean Corpuscular HGB Conc 32.2 g/dL (31.5-36.5); Mean Corpuscular Volume 87 fL (80-100); Mean Platelet Volume 9.2 fL (9.1-12.4); NEUTROPHILS ABSOLUTE AUTO 7.88 K/mm3 (1.96-9.15); NEUTROPHILS PERCENT AUTO 64 % (41-73); Platelet Count 221 K/mm3 (150-400); RDW Coefficient Variation 15.4 % (11.7-14.2); RDW Standard Deviation 49.3 fL (35.1-46.3); Red Blood Cell Count 3.86 M/mm3 (4.30-5.90); White Blood Cell Count 12.32 K/mm3 (4.00-11.30)
[2023-10-20 05:59] LABS: Calcium, Blood 8.4 mg/dL (8.5-10.1); Creatinine, Blood 1.72 mg/dL (0.60-1.20); Potassium, Blood 3.6 mmol/L (3.5-5.5)
[2023-10-20 07:42] VITALS: BP 145/63
[2023-10-20] MEDS ORDERED: DEXTROMETHORPHAN/BENZOCAINE 1 EACH LOZENGE MT PRN (09:35)
[2023-10-20 15:09] VITALS: BP 125/58
--- NOTE | 2023-10-20 18:36 | NUR ---
PATIENT A/OX3, PLEASANT AND COOPERATIVE WITH CARE. RECEIVING ABX TO TREAT UTI. CHRONIC OCONNOR IN PLACE DRAINING CLEAR/YELLOW URINE. VSS, ON RA WITH BIPAP AT [facility]. PATIENT HAD 3 EPISODES OF DIARRHEA TODAY WHICH IS NEW. BARRIER CREAM APPLIED TO PROTECT REDENED SKIN TO BUTTOCKS. ACHS BLOOD SUGARS, COVERAGE PER SS. PATIENT WORKED WITH PT/OT TODAY AND WAS ABLE TO TAKE SOME STEPS. [facility]
[2023-10-20 21:19] VITALS: BP 149/77
[2023-10-20] MEDS ORDERED: Miconazole Nitrate 2% 85 GM PWD TOP SCH (21:20)
[2023-10-21 02:50] VITALS: BP 147/59
[2023-10-21] MEDS ORDERED: NS 100 ML IV ONE (03:20)
[2023-10-21] MEDS ORDERED: Piperacillin/Tazobactam Sod 3.375 GM ONE (03:20)
--- NOTE | 2023-10-21 04:50 | NUR ---
SHIFT SUMMARY NOC PT A/O X 3-4. UNSURE OF DATE AT TIMES, BUT PLEASANT AND COOPERATIVE WITH CARE. NO ACUTE CHANGES TO REPORT. HOME BIPAP SET UP BY RT FOR SLEEP. OCONNOR IN PLACE DRAINING TO GRAVITY. PT HAS EXCORIATION IN [place] AREA AND MEDICATED POWDER ORDERED AND APPLIED. PT EXPECTED TO DISCHARGE TO [facility] FOR REHAB TODAY. PT CURRENTLY RESTING WITH BED IN LOWEST POSITION, AND CALL LIGHT WITHIN REACH.
[2023-10-21 05:12] LABS: BASOPHILS ABSOLUTE AUTO 0.04 K/mm3 (0.00-0.23); BASOPHILS PERCENT AUTO 0 % (0-2); EOSINOPHILS ABSOLUTE AUTO 0.87 K/mm3 (0.00-0.68); EOSINOPHILS PERCENT AUTO 8 % (0-6); Hematocrit 36.3 % (37.0-53.0); Hemoglobin 11.7 g/dL (13.5-17.5); IMMATURE GRAN ABSOLUTE AUTO 0.05 K/mm3 (0.00-0.10); IMMATURE GRAN PERCENT AUTO 0 % (0-1); LYMPHOCYTES ABSOLUTE AUTO 2.65 K/mm3 (0.84-5.20); LYMPHOCYTES PERCENT AUTO 24 % (21-46); MONOCYTES ABSOLUTE AUTO 0.79 K/mm3 (0.16-1.47); MONOCYTES PERCENT AUTO 7 % (4-13); Mean Corpuscular HGB 28.2 pg (26.0-34.0); Mean Corpuscular HGB Conc 32.2 g/dL (31.5-36.5); Mean Corpuscular Volume 88 fL (80-100); Mean Platelet Volume 9.7 fL (9.1-12.4); NEUTROPHILS ABSOLUTE AUTO 6.88 K/mm3 (1.96-9.15); NEUTROPHILS PERCENT AUTO 61 % (41-73); Platelet Count 242 K/mm3 (150-400); RDW Coefficient Variation 14.9 % (11.7-14.2); RDW Standard Deviation 47.6 fL (35.1-46.3); Red Blood Cell Count 4.15 M/mm3 (4.30-5.90); White Blood Cell Count 11.28 K/mm3 (4.00-11.30)
[2023-10-21 05:32] LABS: Bun/Creatinine Ratio 14.3 (12.0-20.0); Calcium, Blood 8.4 mg/dL (8.5-10.1); Creatinine, Blood 1.61 mg/dL (0.60-1.20); Potassium, Blood 3.7 mmol/L (3.5-5.5)
[2023-10-21 07:38] VITALS: BP 162/63
[2023-10-21] MEDS ORDERED: CEPH500 PO (11:19)
[2023-10-21] MEDS ORDERED: Cephalexin Monohydrate 500 MG Cap PO SCH (12:00)
[2023-10-21] MEDS ORDERED: CefTRIAXone Sodium 1,000 MG in NS 100 ML IV SCH (12:00)
[2023-10-21 12:25] LABS: SARS-Cov-2 (COVID-19) PCR, MMC NEGATIVE (NEGATIVE)
--- NOTE | 2023-10-21 14:28 | NUR ---
[facility]PORT CALLED TO J[facility]. DC PACKET SENT WITH BISQUE FINISHER. PATIENT CALLED NAEL PRIOR TO DC TO NOTIFY HER OF THE TRANSFER. BELONGINGS SENT WITH PATIENT. PATIENT DENIES ANY FURTHER QUESTIONS OR CONCERNS.
== END 2023-10-21 14:19 | DRG 699 ==
LOC: ER 13:52 → ERHOLD 13:53 → MEDS 18:48 → ENPENDDIS 10-21 11:47 → MEDS 10-21 14:19
PROVIDERS: Emergency Medicine; Internal Medicine; ADMIT Internal Medicine
DX: T83.511A Infection and inflammatory reaction due to indwelling urethral catheter, initial encounter (principal); F05 Delirium due to known physiological condition; N39.0 Urinary tract infection, site not specified; G20.A1 Parkinson's disease without dyskinesia, without mention of fluctuations; F02.80 Dementia in other diseases classified elsewhere, unspecified severity, without behavioral disturbance, psychotic disturbance, mood disturbance, and anxiety; G31.83 Neurocognitive disorder with Lewy bodies; N18.31 Chronic kidney disease, stage 3a; E11.22 Type 2 diabetes mellitus with diabetic chronic kidney disease; N40.1 Benign prostatic hyperplasia with lower urinary tract symptoms; R33.8 Other retention of urine; B96.1 Klebsiella pneumoniae [K. pneumoniae] as the cause of diseases classified elsewhere; I12.9 Hypertensive chronic kidney disease with stage 1 through stage 4 chronic kidney disease, or unspecified chronic kidney disease; Y84.6 Urinary catheterization as the cause of abnormal reaction of the patient, or of later complication, without mention of misadventure at the time of the procedure; Z98.890 Other specified postprocedural states; Z88.8 Allergy status to other drugs, medicaments and biological substances; Z79.899 Other long term (current) drug therapy; Z79.01 Long term (current) use of anticoagulants; Z79.84 Long term (current) use of oral hypoglycemic drugs; Z79.82 Long term (current) use of aspirin; Z79.4 Long term (current) use of insulin; Z79.51 Long term (current) use of inhaled steroids; Z79.2 Long term (current) use of antibiotics
CPT/HCPCS: 0241U; 36415; 51702; 70450; 71045; 80048; 80053; 81001; 82947; 83605; 85025; 87040; 87077; 87086; 87186; 93005; 93010; 94762; 96361-59; 96365-59; 97110; 97116; 97162; 97166; 97530; 99285-25; A9270; G0378; J1650; J1815; J2543; J7030; J7050; J7120; U0002

== ENCOUNTER 2024-01-19 23:04 | Emergency (ER) | payer OTHER ==
[~2024-01-19] VITALS: Ht 182.9 cm; Wt 117.9 kg
[~2024-01-19 23:04] MED LIST changes: +NITR100CA PO
[2024-01-19 23:20] VITALS: BP 157/80
[2024-01-19 23:53] LABS: BASOPHILS ABSOLUTE AUTO 0.07 K/mm3 (0.00-0.23); BASOPHILS PERCENT AUTO 1 % (0-2); EOSINOPHILS ABSOLUTE AUTO 1.02 K/mm3 (0.00-0.68); EOSINOPHILS PERCENT AUTO 7 % (0-6); Hematocrit 39.2 % (37.0-53.0); Hemoglobin 12.6 g/dL (13.5-17.5); IMMATURE GRAN ABSOLUTE AUTO 0.08 K/mm3 (0.00-0.10); IMMATURE GRAN PERCENT AUTO 1 % (0-1); LYMPHOCYTES PERCENT AUTO 17 % (21-46); MONOCYTES ABSOLUTE AUTO 0.88 K/mm3 (0.16-1.47); MONOCYTES PERCENT AUTO 6 % (4-13); Mean Corpuscular HGB 28.1 pg (26.0-34.0); Mean Corpuscular HGB Conc 32.1 g/dL (31.5-36.5); Mean Corpuscular Volume 88 fL (80-100); Mean Platelet Volume 9.1 fL (9.1-12.4); NEUTROPHILS ABSOLUTE AUTO 10.74 K/mm3 (1.96-9.15); NEUTROPHILS PERCENT AUTO 69 % (41-73); Platelet Count 307 K/mm3 (150-400); RDW Coefficient Variation 14.9 % (11.7-14.2); Red Blood Cell Count 4.48 M/mm3 (4.30-5.90); White Blood Cell Count 15.49 K/mm3 (4.00-11.30)
[2024-01-20 00:11] LABS: Albumin, Blood 3.4 g/dL (3.4-5.0); Albumin/Globulin Ratio 0.8 (0.8-1.8); Bilirubin, Total 0.2 mg/dL (0.1-1.0); Bun/Creatinine Ratio 23.1 (12.0-20.0); Calcium, Blood 9.3 mg/dL (8.5-10.1); Creatinine, Blood 1.47 mg/dL (0.60-1.20); Globulin, Blood 4.5 g/dL (2.2-4.0); Potassium, Blood 4.7 mmol/L (3.5-5.5); Total Protein, Blood 7.9 g/dL (6.4-8.2)
[2024-01-20 00:18] LABS: Source, Urine Foley catheter
[2024-01-20 00:22] LABS: Bilirubin, Urine Neg (Neg); Blood, Urine 3+ (Neg); Glucose Qualitative, Urine Neg (Neg); Ketones, Urine Neg (Neg); Leukocyte Esterase, Urine 3+ (Neg); Nitrite, Urine Neg (Neg); Protein, Urine 2+ (Neg); Urobilinogen, Urine NORM (Normal)
[2024-01-20 00:24] LABS: Appearance, Urine Hazy (Clear); Color, Urine Yellow (P-Yellow)
[2024-01-20 00:32] LABS: Amorphous Light (0-Heavy); Bacteria Many /hpf; Mucus Light (0-Heavy); Squamous Epithelial Cells Not Seen /hpf (Few)
[2024-01-20 00:33] LABS: Triple Phosphate Crystals Few /hpf
[2024-01-20] MEDS ORDERED: Cefpodoxime Proxetil 200 MG Tab PO ONE (00:45)
[2024-01-20] MEDS ORDERED: CEFP200 PO (00:45)
== END 2024-01-20 01:10 | disposition home or self-care (01) ==
LOC: ER 23:04
PROVIDERS: Emergency Medicine
DX: T83.511A Infection and inflammatory reaction due to indwelling urethral catheter, initial encounter (principal); N39.0 Urinary tract infection, site not specified; Z68.35 Body mass index [BMI] 35.0-35.9, adult; D72.829 Elevated white blood cell count, unspecified; E11.22 Type 2 diabetes mellitus with diabetic chronic kidney disease; I12.9 Hypertensive chronic kidney disease with stage 1 through stage 4 chronic kidney disease, or unspecified chronic kidney disease; N18.9 Chronic kidney disease, unspecified; Z79.899 Other long term (current) drug therapy; Z79.02 Long term (current) use of antithrombotics/antiplatelets; Z79.82 Long term (current) use of aspirin; Z79.84 Long term (current) use of oral hypoglycemic drugs; Z79.4 Long term (current) use of insulin; Z88.8 Allergy status to other drugs, medicaments and biological substances
CPT/HCPCS: 51702; 80053; 81001; 83690; 85025; 87077; 87086; 87186; 99283; A9270

== ENCOUNTER 2024-12-26 17:38 | Inpatient (IN) | payer OTHER ==
[~2024-12-26] VITALS: Ht 182.9 cm; Wt 114.6 kg
[~2024-12-26 17:38] MED LIST changes: +ACET500 PO; -Acetaminophen325 M1 PO; +CEFP200 PO; -LOSA25 PO; +LOSA50 PO
[2024-12-26 18:04] LABS: BASOPHILS ABSOLUTE AUTO 0.02 K/mm3 (0.00-0.23); BASOPHILS PERCENT AUTO 0 % (0-2); EOSINOPHILS ABSOLUTE AUTO 0.02 K/mm3 (0.00-0.68); EOSINOPHILS PERCENT AUTO 0 % (0-6); Hematocrit 34.4 % (37.0-53.0); Hemoglobin 11.2 g/dL (13.5-17.5); IMMATURE GRAN ABSOLUTE AUTO 0.04 K/mm3 (0.00-0.10); IMMATURE GRAN PERCENT AUTO 1 % (0-1); LYMPHOCYTES ABSOLUTE AUTO 0.98 K/mm3 (0.84-5.20); LYMPHOCYTES PERCENT AUTO 13 % (21-46); MONOCYTES ABSOLUTE AUTO 0.70 K/mm3 (0.16-1.47); MONOCYTES PERCENT AUTO 9 % (4-13); Mean Corpuscular HGB Conc 32.6 g/dL (31.5-36.5); Mean Corpuscular Volume 88 fL (80-100); NEUTROPHILS ABSOLUTE AUTO 5.91 K/mm3 (1.96-9.15); NEUTROPHILS PERCENT AUTO 77 % (41-73); NRBC ABSOLUTE 0.00 K/mm3 (0.00-0.02); NRBC Auto 0.0 /100 WBC (0.0-0.2); Platelet Count 217 K/mm3 (150-400); RDW Coefficient Variation 14.6 % (11.7-14.2); RDW Standard Deviation 46.9 fL (35.1-46.3)
[2024-12-26 18:06] LABS: Source, Urine Foley catheter
[2024-12-26 18:09] LABS: Bilirubin, Urine Neg (Neg); Color, Urine Yellow (P-Yellow); Glucose Qualitative, Urine Neg (Neg); Ketones, Urine Neg (Neg); Leukocyte Esterase, Urine 3+ (Neg); Protein, Urine 2+ (Neg); Specific Gravity, Urine 1.010 (1.003-1.022); Urobilinogen, Urine NORM (Normal)
[2024-12-26 18:23] LABS: Magnesium, Blood 1.9 mg/dL (1.6-2.4)
[2024-12-26 18:24] LABS: White Blood Cells, Urine 50-100 /hpf (0-5)
[2024-12-26 18:25] LABS: Alanine Aminotransfer (ALT/SGP 14 U/L (12-78); Albumin, Blood 2.9 g/dL (3.4-5.0); Albumin/Globulin Ratio 0.7 (0.8-1.8); Anion Gap 10 mmol/L (3-11); Aspartate Aminotrans (AST/SGOT 11 U/L (12-37); Bilirubin, Direct <0.1 mg/dL (0.0-0.3); Bilirubin, Indirect Unable to Calculate mg/dL (0.1-0.7); Bilirubin, Total 0.2 mg/dL (0.1-1.0); Blood Urea Nitrogen 37 mg/dL (8-24); CO2, Blood 25 mmol/L (21-32); Calcium, Blood 8.5 mg/dL (8.5-10.1); Chloride, Blood 105 mmol/L (98-108); Creatinine, Blood 1.77 mg/dL (0.60-1.20); Globulin, Blood 4.0 g/dL (2.2-4.0); Glucose, Blood 222 mg/dL (70-99); Phosphorus, Blood 1.9 mg/dL (2.5-4.9); Potassium, Blood 4.2 mmol/L (3.5-5.5); Sodium, Blood 136 mmol/L (136-145); Total Protein, Blood 6.9 g/dL (6.4-8.2)
[2024-12-26 18:31] LABS: Prothrombin Time Results 11.4 Sec (9.7-11.5)
[2024-12-26 18:47] LABS: CORONAVIRUS COVID-19 AG Negative (NEGATIVE)
[2024-12-26] MEDS ORDERED: CefTRIAXone Sodium 1,000 MG in NS 50 ML IV ONE (18:55)
[2024-12-26] MEDS ORDERED: Mag Sulfate 1 GM/D5% 100ML 100 ML IV STA (19:34)
[2024-12-26] MEDS ORDERED: Sodium Phosphate 15 MM in Dextrose 5% 500 ML IV STA (19:35)
[2024-12-26] MEDS ORDERED: FLU VACC TS2025(65UP)/MF59C/PF 45 MCG/0.5 ML SYRINGE IM SCH (19:40)
[2024-12-26] MEDS ORDERED: Lactobacil 2-S.Thermo-Bifido 1 1 Cap PO SCH (21:00)
[2024-12-26 21:30] VITALS: BP 150/97
[2024-12-26] MEDS ORDERED: Amlodipine Bes2.5 MG PO (21:41)
[2024-12-26] MEDS ORDERED: SENN187 PO (21:42)
[2024-12-26] MEDS ORDERED: CARBLEV25 PO (21:47)
[2024-12-26] MEDS ORDERED: ALBU90OI INH (21:56)
[2024-12-26] MEDS ORDERED: CAMPHOR MENTHOL TOP (21:58)
[2024-12-26] MEDS ORDERED: CETI5 PO (21:59)
[2024-12-26] MEDS ORDERED: Voltaren100 GM TOP (22:01)
[2024-12-26] MEDS ORDERED: DOCU100 PO (22:02)
[2024-12-26] MEDS ORDERED: LIDO700A20 TOP (22:05)
[2024-12-26] MEDS ORDERED: MEMA10 PO (22:09)
[2024-12-26] MEDS ORDERED: TERBINAFINE 1% TOP (22:13)
[2024-12-27] VITALS (7 sets, daily range): BP systolic 131–166; BP diastolic 46–96
[2024-12-27 04:06] LABS: BASOPHILS ABSOLUTE AUTO 0.02 K/mm3 (0.00-0.23); BASOPHILS PERCENT AUTO 0 % (0-2); EOSINOPHILS ABSOLUTE AUTO 0.01 K/mm3 (0.00-0.68); EOSINOPHILS PERCENT AUTO 0 % (0-6); Hematocrit 38.1 % (37.0-53.0); Hemoglobin 12.2 g/dL (13.5-17.5); IMMATURE GRAN ABSOLUTE AUTO 0.04 K/mm3 (0.00-0.10); IMMATURE GRAN PERCENT AUTO 1 % (0-1); LYMPHOCYTES ABSOLUTE AUTO 1.25 K/mm3 (0.84-5.20); LYMPHOCYTES PERCENT AUTO 16 % (21-46); MONOCYTES ABSOLUTE AUTO 0.75 K/mm3 (0.16-1.47); MONOCYTES PERCENT AUTO 10 % (4-13); Mean Corpuscular HGB Conc 32.0 g/dL (31.5-36.5); Mean Corpuscular Volume 88 fL (80-100); NEUTROPHILS ABSOLUTE AUTO 5.86 K/mm3 (1.96-9.15); NEUTROPHILS PERCENT AUTO 74 % (41-73); NRBC ABSOLUTE 0.00 K/mm3 (0.00-0.02); NRBC Auto 0.0 /100 WBC (0.0-0.2); Platelet Count 208 K/mm3 (150-400); RDW Coefficient Variation 14.7 % (11.7-14.2); RDW Standard Deviation 47.5 fL (35.1-46.3)
[2024-12-27 04:25] LABS: Alanine Aminotransfer (ALT/SGP 18.0 U/L (12-78); Albumin, Blood 3.1 g/dL (3.4-5.0); Albumin/Globulin Ratio 0.7 (0.8-1.8); Anion Gap 11.0 mmol/L (3-11); Aspartate Aminotrans (AST/SGOT 12.0 U/L (12-37); Bilirubin, Total 0.4 mg/dL (0.1-1.0); Blood Urea Nitrogen 31.0 mg/dL (8-24); CO2, Blood 25.0 mmol/L (21-32); Calcium, Blood 8.6 mg/dL (8.5-10.1); Chloride, Blood 103.0 mmol/L (98-108); Creatinine, Blood 1.67 mg/dL (0.60-1.20); Globulin, Blood 4.4 g/dL (2.2-4.0); Glucose, Blood 211.0 mg/dL (70-99); Magnesium, Blood 2.1 mg/dL (1.6-2.4); Potassium, Blood 4.0 mmol/L (3.5-5.5); Sodium, Blood 135.0 mmol/L (136-145); Total Protein, Blood 7.5 g/dL (6.4-8.2)
--- NOTE | 2024-12-27 06:28 | NUR ---
PT MONITORED DURING THE SHIFT.PT HAS BEEN SLEEPING ON/OFF,RESPONDS APPROPRIATELY TO NAME.OCCASIONALLY SAYS A WORD BUT MOSTLY ANSWERS YES/NO QUESTIONS.BLOOD GLUCOSE IN THE 200'S CHECKED EVERY 6HOURS WHILE PT NPO.NO S/S OF PAIN/DISCOMFORT NOTED.PT WIDE AWAKE THIS MORNING.DENIES PAIN,DENIES NEEDS.CALL LIGHT AND PT'S ITEMS WITHIN REACH.BED ALARM ON FOR FALL PREVENTION SAFETY.MONITORING ONGOING PER CAREPLAN.
[2024-12-27] MEDS ORDERED: Enoxaparin 40 MG/0.4 ML SYR SC SCH (09:00)
[2024-12-27] MEDS ORDERED: Methyl Salicylate/Menth/Camph 57 GM TUBE TOP PRN (10:30)
[2024-12-27] MEDS ORDERED: Albuterol HFA200 ACT/6.7 GM INH INH PRN (10:30)
[2024-12-27] MEDS ORDERED: Levodopa/Carbidopa 100 / 25 MG Tab PO SCH ×3 (14:00→21:00)
[2024-12-27] MEDS ORDERED: Insulin Regular 100 UNIT/ML 10ML Vial SC SCH ×2 (16:30)
--- NOTE | 2024-12-27 18:20 | NUR ---
SHIFT SUMMARY; ASSUMED CARE AT 0700. A/A/OX3. SLOW TO RESPOND TO QUESTIONS BUT DOES ANSWER APPROPRIATLY. HX OF PARKINSONS. ABLE TO TAKE PO MEDS WITH APPLESAUCE. EAT DINNER WITH FEEDER, TOLERATED WELL. NOTICABLE TREMOR TO ARMS, NORMAL PER SPOUSE. CHRONIC OCONNOR IN PLACE DRAINING YELLOW URINE. VSS, SPOUSE AT BEDSIDE FOR A FEW HOURS DURING SHIFT. WILL CONTINUE TO MONITOR AND TREAT UNTIL REPORT GIVEN TO NOC SHIFT RN.
--- NOTE | 2024-12-27 18:22 | NUR ---
Pt. is awake in bed when I come to bedside. Pt. is pleasant but is slow to respond and does so with just one word sentences. WHen Prayer was offered the Pt. verbalized "yes." Prayed with the Pt. Will remain available to the Pt.
[2024-12-27] MEDS ORDERED: CefTRIAXone Sodium 1,000 MG in NS 100 ML IV SCH (21:00)
[2024-12-28] VITALS: BP 144/72
[2024-12-28 03:39] VITALS: BP 169/71
[2024-12-28 04:03] LABS: BASOPHILS ABSOLUTE AUTO 0.03 K/mm3 (0.00-0.23); BASOPHILS PERCENT AUTO 0 % (0-2); EOSINOPHILS ABSOLUTE AUTO 0.29 K/mm3 (0.00-0.68); EOSINOPHILS PERCENT AUTO 4 % (0-6); Hematocrit 38.5 % (37.0-53.0); Hemoglobin 12.2 g/dL (13.5-17.5); IMMATURE GRAN ABSOLUTE AUTO 0.02 K/mm3 (0.00-0.10); IMMATURE GRAN PERCENT AUTO 0 % (0-1); LYMPHOCYTES ABSOLUTE AUTO 2.16 K/mm3 (0.84-5.20); LYMPHOCYTES PERCENT AUTO 29 % (21-46); MONOCYTES ABSOLUTE AUTO 0.98 K/mm3 (0.16-1.47); MONOCYTES PERCENT AUTO 13 % (4-13); Mean Corpuscular HGB Conc 31.7 g/dL (31.5-36.5); Mean Corpuscular Volume 89 fL (80-100); NEUTROPHILS ABSOLUTE AUTO 3.91 K/mm3 (1.96-9.15); NEUTROPHILS PERCENT AUTO 53 % (41-73); NRBC ABSOLUTE 0.00 K/mm3 (0.00-0.02); NRBC Auto 0.0 /100 WBC (0.0-0.2); Platelet Count 187 K/mm3 (150-400); RDW Coefficient Variation 15.0 % (11.7-14.2); RDW Standard Deviation 48.6 fL (35.1-46.3)
[2024-12-28 04:27] LABS: Anion Gap 11.0 mmol/L (3-11); Blood Urea Nitrogen 30.0 mg/dL (8-24); CO2, Blood 25.0 mmol/L (21-32); Calcium, Blood 8.9 mg/dL (8.5-10.1); Chloride, Blood 103.0 mmol/L (98-108); Creatinine, Blood 1.65 mg/dL (0.60-1.20); Glucose, Blood 171.0 mg/dL (70-99); Potassium, Blood 3.7 mmol/L (3.5-5.5); Sodium, Blood 135.0 mmol/L (136-145)
--- NOTE | 2024-12-28 06:19 | NUR ---
SHIFT SUMMARY PATIENT ALERT, ORIENTED TO SELF AND PLACE. PATIENT QUIET AND HAS FLAT AFFECT BUT WILL ANSWER QUESTIONS APPROPRIATELY. PATIENT TOOK ALL PO MEDICATION WITH APPLESAUCE. SB-SR ON MONITOR. NO COMPLAINTS. Q2-3 HR REPOSITIONING. OCONNOR DRAINING DARK YELLOW URINE TO GRAVITY. 530ML URINE OUTPUT THIS SHIFT. NO ACUTE EVENTS OVERNIGHT. PLAN OF CARE ONGOING.
[2024-12-28 07:43] VITALS: BP 134/70
[2024-12-28] MEDS ORDERED: NS 1,000 ML IV SCH (08:00)
[2024-12-28] MEDS ORDERED: Lidocaine 4% 1 Patch TOP SCH (09:00)
[2024-12-28] MEDS ORDERED: Insulin Glargine 100 Unit/ML 3 ML SYR SC SCH (09:00)
[2024-12-28 14:59] VITALS: BP 113/78
[2024-12-28] MEDS ORDERED: Ampicillin Sod/Sulbactam Sod 3 GM in NS 100 ML IV SCH (15:00)
--- NOTE | 2024-12-28 16:09 | NUR ---
TRANSFER FROM PCU, CLEARLY MAKES NEEDS, ESSENTIAL TREMORS, CALL LIGHT WITH IN REACH
[2024-12-28 19:26] VITALS: BP 145/81
--- NOTE | 2024-12-29 04:16 | NUR ---
SHIFT SUMMARY PATIENT HAD NO ACUTE CHANGES. AXOX 2-3 AND BEDREST. FLAT AFFECT WITH TREMORS. PIV INTACT. NS FINISHED INFUSING BAG ONE OF ONE. IV ABX INFUSED. CBG 158. PIV INTACT. CHRONIC OCONNOR PATENT AND DRAINING TO GRAVITY. CALL LIGHT IN REACH. BED IN LOWEST POSITION. WILL CONTINUE TO MONITOR UNTIL DAY SHIFT NURSE ASSUMES CARE.
[2024-12-29 04:57] LABS: BASOPHILS ABSOLUTE AUTO 0.03 K/mm3 (0.00-0.23); BASOPHILS PERCENT AUTO 0 % (0-2); EOSINOPHILS ABSOLUTE AUTO 0.54 K/mm3 (0.00-0.68); EOSINOPHILS PERCENT AUTO 7 % (0-6); Hematocrit 35.4 % (37.0-53.0); Hemoglobin 11.1 g/dL (13.5-17.5); IMMATURE GRAN ABSOLUTE AUTO 0.02 K/mm3 (0.00-0.10); IMMATURE GRAN PERCENT AUTO 0 % (0-1); LYMPHOCYTES ABSOLUTE AUTO 2.60 K/mm3 (0.84-5.20); LYMPHOCYTES PERCENT AUTO 32 % (21-46); MONOCYTES ABSOLUTE AUTO 0.95 K/mm3 (0.16-1.47); MONOCYTES PERCENT AUTO 12 % (4-13); Mean Corpuscular HGB Conc 31.4 g/dL (31.5-36.5); Mean Corpuscular Volume 88 fL (80-100); NEUTROPHILS ABSOLUTE AUTO 4.07 K/mm3 (1.96-9.15); NEUTROPHILS PERCENT AUTO 50 % (41-73); NRBC ABSOLUTE 0.00 K/mm3 (0.00-0.02); NRBC Auto 0.0 /100 WBC (0.0-0.2); Platelet Count 190 K/mm3 (150-400); RDW Coefficient Variation 14.6 % (11.7-14.2); RDW Standard Deviation 47.4 fL (35.1-46.3)
[2024-12-29 05:01] VITALS: BP 136/67
[2024-12-29 05:18] LABS: Anion Gap 10.0 mmol/L (3-11); Blood Urea Nitrogen 26.0 mg/dL (8-24); CO2, Blood 26.0 mmol/L (21-32); Calcium, Blood 8.2 mg/dL (8.5-10.1); Chloride, Blood 106.0 mmol/L (98-108); Creatinine, Blood 1.56 mg/dL (0.60-1.20); Glucose, Blood 137.0 mg/dL (70-99); Potassium, Blood 3.5 mmol/L (3.5-5.5); Sodium, Blood 138.0 mmol/L (136-145)
[2024-12-29 07:19] VITALS: BP 144/70
[2024-12-29 11:43] VITALS: BP 130/61
--- NOTE | 2024-12-29 11:55 | NUR ---
Pt. is awake and sitting up in a chair. His METAL WINDOW SCREEN ASSEMBLER is finished getting his vitals when I visit. Pt. welcomes my visit but speaks in one word sentances. Pt. verbalized the expectation that he was going to be sent to re-hab. Pt. displayed evidence that rehab was not where he wanted to go. Normalized the Pt. experience, but the Pt. had no verbal response indicating agreement. Prayed with the Pt. Will remain available to the Pt.
[2024-12-29] MEDS ORDERED: VISBIOME 112.51 EACH PO (14:30)
[2024-12-29] MEDS ORDERED: AMOCLA875 PO (14:30)
--- NOTE | 2024-12-29 15:00 | NUR ---
MET WITH PATIENT AND TO DISCUSS POLST. COMPLETED, PATIENT SELECTED FULL CODE. COPY MADE, SENT TO MEDICAL RECORDS, REGISTRY, AND PLACED IN CHART.
--- NOTE | 2024-12-29 16:10 | NUR ---
pt discharged THE PT AND HIS SON VERBALIZED UNDERSTANDING OF THE DC INSTRUCTIONS. THE PT WAS TRANSFERD VIA WHEELCHAIR TO MEET HIS RIDE ACCOMPANIED BY HIS FAMILY AND THE INDUSTRIAL STAFF NURSE
== END 2024-12-29 15:53 | disposition home health service (06) | DRG 698 ==
LOC: ER 17:38 → ERHOLD 19:29 → PCU 19:29 → MEDS 12-28 15:33 → ENPENDDIS 12-29 13:37 → MEDS 12-29 15:53
PROVIDERS: Emergency Medicine; Student in an Organized Health Care Education/Training Program; ADMIT Student in an Organized Health Care Education/Training Program
DX: T83.511A Infection and inflammatory reaction due to indwelling urethral catheter, initial encounter (principal); A41.59 Other Gram-negative sepsis; A41.81 Sepsis due to Enterococcus; R65.20 Severe sepsis without septic shock; G93.41 Metabolic encephalopathy; I47.20 Ventricular tachycardia, unspecified; N39.0 Urinary tract infection, site not specified; Y73.2 Prosthetic and other implants, materials and accessory gastroenterology and urology devices associated with adverse incidents; I12.9 Hypertensive chronic kidney disease with stage 1 through stage 4 chronic kidney disease, or unspecified chronic kidney disease; E11.22 Type 2 diabetes mellitus with diabetic chronic kidney disease; N40.1 Benign prostatic hyperplasia with lower urinary tract symptoms; R33.8 Other retention of urine; N18.32 Chronic kidney disease, stage 3b; E78.5 Hyperlipidemia, unspecified; G31.83 Neurocognitive disorder with Lewy bodies; F02.80 Dementia in other diseases classified elsewhere, unspecified severity, without behavioral disturbance, psychotic disturbance, mood disturbance, and anxiety; I35.0 Nonrheumatic aortic (valve) stenosis; G20.A1 Parkinson's disease without dyskinesia, without mention of fluctuations; E66.01 Morbid (severe) obesity due to excess calories; Z68.34 Body mass index [BMI] 34.0-34.9, adult; Z88.8 Allergy status to other drugs, medicaments and biological substances; Z79.84 Long term (current) use of oral hypoglycemic drugs; Z79.82 Long term (current) use of aspirin; Z79.4 Long term (current) use of insulin; Z79.02 Long term (current) use of antithrombotics/antiplatelets; Z87.891 Personal history of nicotine dependence
CPT/HCPCS: 36415; 71045; 80048; 80053; 81001; 82248; 82947; 83605; 83735; 84100; 85025; 85610; 85730; 87040; 87077; 87086; 87186; 87428-QW; 93005; 93010; 94762; 97110; 97112; 97161; 97166; 97530; 99285-25; A9270; C8929; J0295; J0696; J1650; J1815; J3475; J7030; J7060; Q9957